=== PATIENT | male | born 1935 | race American Indian/Alaskan Native ===

== ENCOUNTER 2016-11-25 10:51 | Inpatient (IN) | payer MEDICARE, OTHER ==
[2016-11-25 11:02] VITALS: BMI 20.6
[2016-11-25] MEDS ORDERED: Albuterol 0.5% Inhal Sol (2.5 mg/0.5 ml) UD IH STA (11:35)
[2016-11-25] MEDS ORDERED: Ipratropium 0.02% Inhal Soln (0.5 mg/2.5 ml) UD IH STA (11:35)
[2016-11-25 12:24] LABS: ADD MANUAL DIFF? NO
[2016-11-25 12:26] LABS: VENOUS BLOOD GAS BASE EXCESS 9.2 mmol/L (0.0-2.0); VENOUS BLOOD PH 7.38 (7.32-7.43)
--- NOTE | 2016-11-25 12:31 | RAD ---
HISTORY: LE edema COMPARISON: 10/18/2015 FINDINGS: LUNGS: The horizontal platelike atelectasis/scarring or fissural fluid is similar in appearance. No interval consolidation. Study is rotated towards the right PLEURA: No significant pleural effusion identified, no pneumothorax apparent. CARDIOVASCULAR: Mild cardiomegaly OSSEOUS STRUCTURES: No significant abnormalities. VISUALIZED UPPER ABDOMEN: Normal. OTHER FINDINGS: None. IMPRESSION: No interval pathology noted.
[2016-11-25 12:34] LABS: BASO # 0.01 K/mm3 (0.0-2.0); BASO % 0.2 % (0.0-3.0); EOS % 0.7 % (1.5-5.0); GRAN # 3.89 (1.4-6.5); GRAN % 65.9 % (50.0-68.0); HEMATOCRIT 40.8 % (42.0-52.0); LYMPH # 1.2 (1.2-3.4); LYMPH % 19.8 % (22.0-35.0); MEAN CELL VOLUME 97.4 fL (80.0-105.0); MEAN CORPUSCULAR HGB CONC 32.8 g/dl (31.0-37.0); MONO # 0.8 (0.1-0.6); MONO % 13.4 % (1.0-6.0); PLATELET COUNT 114 10^3/uL (120.0-450.0); RED CELL DISTRIBUTION WIDTH 14.7 % (11.5-14.5); WHITE BLOOD COUNT 5.9 10^3/ul (4.5-11.0)
[2016-11-25 12:38] LABS: ALKALINE PHOSPHATASE 83 U/L (38-133); ALT/SGPT 36 U/L (7-56); AST/SGOT 30 U/L (15-59); BILIRUBIN,TOTAL 2.3 mg/dL (0.2-1.3); BLOOD UREA NITROGEN 18 mg/dL (7-21); CALCIUM 10.1 mg/dL (8.4-10.5); CARBON DIOXIDE 36 mmol/L (21-33); CHLORIDE 97 mmol/L (98-107); GFR AFRICAN-AMERICAN > 60; GLUCOSE,RANDOM 113 mg/dL (70-110); INR 1.05 (0.93-1.08); PARTIAL THROMBOPLASTIN TIME 28.7 Seconds (23.7-30.8); POTASSIUM 3.3 mmol/L (3.6-5.0); SODIUM 140 mmol/L (132-148); TOTAL PROTEIN 6.9 g/dL (5.8-8.3)
--- NOTE | 2016-11-25 12:42 | CARD ---
APPROVED REPORT EKG Measurement Heart [id number] <Conclusion> Sinus rhythm with frequent premature ventricular complexes in a pattern of bigeminy Nonspecific ST and T wave abnormality Abnormal ECG
[2016-11-25 12:49] LABS: TROPONIN I < 0.01 ng/mL
[2016-11-25 12:55] LABS: PH,URINE 6.5 (4.7-8.0); URINE BILIRUBIN SMALL (NEGATIVE); URINE BLOOD NEGATIVE (NEGATIVE); URINE GLUCOSE (UA) NEGATIVE (NEGATIVE); URINE KETONE NEGATIVE (NEGATIVE); URINE LEUKOCYTE ESTERASE NEGATIVE Leu/uL (NEGATIVE); URINE PROTEIN TRACE mg/dL (<30 mg/dL); URINE UROBILINOGEN >=8.0 E.U./dL (<1 E.U./dL)
[2016-11-25 12:56] LABS: URINE APPEARANCE CLEAR (CLEAR); URINE COLOR DARK YELLOW (YELLOW)
[2016-11-25 13:07] LABS: URINE EPITHELIAL CELLS 0 - 2 /hpf (0-5); URINE RBC 0 - 2 /hpf (0-2); URINE WBC 0 - 2 /hpf (0-6)
[2016-11-25 13:08] LABS: URINE BACTERIA TRACE (NEG)
[2016-11-25] MEDS ORDERED: Potassium Chloride 20 mEq/15 ml LIQ UD PO STA (13:11)
[2016-11-25] MEDS ORDERED: Magnesium Citrate Oral SOL (300 ml) PO ONE (13:48)
--- NOTE | 2016-11-25 14:14 | ED PDOC ---
Arrival/HPI - General Chief Complaint: Lower Extremity Problem/Injury Time Seen by Provider: 11/25/16 10:54 Historian: Patient, Family - History of Present Illness Narrative History of Present Illness (Text): 11/25/16 14:46 81 yo M with pmh of DM, COPD, CAD, HTN, CHF, presents c/o feeling weak, groin pain, with b/l LE edema, states that she was recently in [place] visiting his sister and had to visit the ER on 11/22 for similar symptoms, pt has a copy of his d/c instructions on him. On the d/c instructions, pt was dx with edema, and was medicated with lasix, albuterol and atrovent. States that after he was treated in the ER was he d/c and was not admitted, however he states that he still feels weak and still has edema to his legs. Pt does admit that he takes lasix and is not very complaint with taking his medication, states that he takes it "here and there" when he recalls. Otherwise denies fever , chills, CP, SOB, dyspnea, N/V/D, abdominal pain, dysuria, headache, dizziness. Pt has no other complaints at this time. 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) - Renal Hx Renal Disorder: No - Endocrine/Metabolic Hx Endocrine Disorders: Yes Hx Diabetes Mellitus Type 2: Yes - Hematological/Oncological Hx Blood Transfusions: No Hx Blood Transfusion Reaction: No - Integumentary Hx Dermatological Disorder: No - Musculoskeletal/Rheumatological Hx Musculoskeletal Disorders: No - Gastrointestinal Hx Gastrointestinal Disorders: Yes (CONSTIPATION) - Genitourinary/Gynecological Hx Genitourinary Disorders: No - Psychiatric Hx Emotional Abuse: No Hx Physical Abuse: No Hx Substance Use: No - Surgical History Hx Cardiac Catheterization: Yes (2005, 2012) Other/Comment: CARDIAC CATH, WITH 1 STENT - Anesthesia Hx Anesthesia Reactions: No Hx Malignant Hyperthermia: No - Suicidal Assessment Feels Threatened In Home Enviroment: No Family/Social History - Physician Review Nursing Documentation Reviewed: Yes Family/Social History: No Known Family HX Smoking Status: Light Smoker < 10 Cigarettes Daily Hx Alcohol Use: No Hx Substance Use: No Allergies/Home Meds Allergies/Adverse Reactions: Allergies Penicillins Allergy (Verified 11/25/16 11:04) RASH Home Medications: Home Meds Medication Instructions Recorded Confirmed Valsartan [Diovan] 320 mg PO DAILY 02/11/15 11/25/16 Febuxostat [Uloric] 40 mg PO DAILY 10/18/15 11/25/16 Metformin HCl [Metformin] 500 mg PO DAILY 10/18/15 11/25/16 Montelukast [Singulair] 10 mg PO DAILY 10/18/15 11/25/16 Aspirin [Ecotrin] 81 mg PO DAILY 01/01/16 11/25/16 Rosuvastatin Calcium [Crestor] 10 mg PO DAILY 01/01/16 11/25/16 Furosemide [Lasix] 40 mg PO DAILY 11/25/16 11/25/16 Meloxicam [Mobic] 15 mg PO DAILY 11/25/16 11/25/16 Metoprolol Succinate [Toprol XL] 25 mg PO DAILY 11/25/16 11/25/16 Tamsulosin [Flomax] 0.4 mg PO DAILY 11/25/16 11/25/16 Review of Systems - Review of Systems Constitutional: Normal, Fatigue. absent: Weight Change, Fevers Respiratory: Normal, Cough (chronic cough). absent: SOB, Sputum, Wheezing Cardiovascular: Normal. absent: Chest Pain, Palpitations, Edema Gastrointestinal: Normal, Constipation (chronic constipation). absent: Abdominal Pain, Stool Changes, Vomiting, Appetite Changes Genitourinary Male: Normal, Frequency. absent: Dysuria, Hematuria Musculoskeletal: Normal. absent: Arthralgias, Back Pain, Neck Pain Skin: Normal. absent: Rash, Pruritis, Skin Lesions Neurological: Normal. absent: Headache, Dizziness, Focal Weakness Physical Exam Vital Signs Reviewed: Yes Vital Signs Temp Pulse Resp BP Pulse Ox 11/25/16 18:12 81 18 142/101 H 95 11/25/16 16:10 81 18 182/72 H 95 11/25/16 14:27 82 17 142/65 96 11/25/16 13:50 84 18 128/75 96 11/25/16 12:26 153/67 H 11/25/16 12:15 51 L 18 131/79 96 11/25/16 11:01 98.0 F 80 18 132/84 95 Temperature: Afebrile Blood Pressure: Normal Pulse: Regular Respiratory Rate: Normal Appearance: Positive for: Well-Appearing, Comfortable Pain Distress: Other (breathing easy and unlabored) Mental Status: Positive for: Alert and Oriented X 3 - Systems Exam Head: Present: Atraumatic, Normocephalic Mouth: Present: Dry Neck: Present: Normal Range of Motion. No: MIDLINE TENDERNESS Respiratory/Chest: Present: Good Air Exchange, Wheezes (b/l expiratory wheezing) . No: Respiratory Distress, Accessory Muscle Use, Rales, Rhonchi Cardiovascular: Present: Regular Rate and Rhythm, Normal S1, S2. No: Murmurs Abdomen: Present: Normal Bowel Sounds. No: Tenderness, Distention, Peritoneal Signs, Rebound, Guarding, Mass/Organomegaly Back: Present: Normal Inspection. No: CVA Tenderness, Midline Tenderness Upper Extremity: Present: Normal Inspection, Normal ROM, NORMAL PULSES. No: Cyanosis, Edema Lower Extremity: Present: Edema ((+) b/l LE 2+ pitting edema), NORMAL PULSES, Neurovascularly Intact, Capillary Refill < 2 s. No: CALF TENDERNESS, Tenderness , Deformity, Temperature Abnormalties Neurological: Present: GCS=15, CN II-XII Intact, Speech Normal, Motor Func Grossly Intact, Normal Sensory Function Skin: Present: Warm, Dry, Normal Color. No: Rashes Psychiatric: Present: Alert, Oriented x 3, Normal Insight, Normal Concentration Medical Decision Making ED Course and Treatment: 11/25/16 14:52 81 yo M with pmh of DM, COPD, CAD, HTN, CHF, presents c/o feeling weak, groin pain, with b/l LE edema for the past several days. Pt on 11/22/16, was seen and treated in an ER in [place] for edema. Differential diagnosis : to r/o CHF exacerbation vs COPD exacerbation vs DVT Plan: - Labs - IV fluids - Lasix / duoneb / solumedrol - EKG - CXR - Pt placed in ED observation - UA / urine cx - Lab Interpretations Lab Results: 11/25/16 12:15 11/25/16 12:15 Lab Results 11/25/16 12:51: Urine Color Dark yellow, Urine Appearance Clear, Urine pH 6.5, Ur Specific [place] 1.015, Urine Protein Trace H, Urine Glucose (UA) Negative, Urine Ketones Negative, Urine Blood Negative, Urine Nitrate Negative, Urine Bilirubin Small H, Urine Urobilinogen >=8.0, Ur Leukocyte Esterase Negative, Urine RBC 0 - 2, Urine WBC 0 - 2, Ur Epithelial Cells 0 - 2, Urine Bacteria Trace 11/25/16 12:15: Sodium 140, Chloride 97 L, Potassium 3.3 L, Carbon Dioxide 36 H , Anion Gap 10, BUN 18, Creatinine 0.7, Est GFR ( Amer) > 60, Est GFR ( Non-Af Amer) > 60, Random Glucose 113 H, Calcium 10.1, Total Bilirubin 2.3 H, AST 30, ALT 36, Alkaline Phosphatase 83, Lactate Dehydrogenase 500, Total Creatine Kinase 389 H, CK-MB (CK-2) 1.9, CK-MB (CK-2) % Cancelled, Troponin I < 0.01, NT-Pro-B Natriuret Pep 319, Total Protein 6.9, Albumin 3.5, Globulin 3.4, Albumin/Globulin Ratio 1.0 L 11/25/16 12:15: pO2 33, VBG pH 7.38, VBG pCO2 62.0 H, VBG HCO3 36.7 H, VBG Total CO2 38.6 H, VBG O2 Sat (Calc) 67.8 H, VBG Base Excess 9.2 H, VBG Potassium 3.2 L, Sodium 140.0, Chloride 99.0, Glucose 113 H, Lactate 1.5, FiO2 21.0, Venous Blood Potassium 3.2 L 11/25/16 12:15: PT 11.3, INR 1.05, APTT 28.7 11/25/16 12:15: WBC 5.9, RBC 4.19, Hgb 13.4 L, Hct 40.8 L, MCV 97.4, MCH 32.0, MCHC 32.8, RDW 14.7 H, Plt Count 114 L, MPV 11.0, Gran % 65.9, Lymph % (Auto) 19.8 L, Adams % (Auto) 13.4 H, Eos % (Auto) 0.7 L, Baso % (Auto) 0.2, Gran # 3.89 , Lymph # 1.2, Adams # 0.8 H, Eos # 0.0, Baso # 0.01 - RAD Interpretation Radiology Orders: 11/25/16 11:36 CHEST PORTABLE [RAD] Stat 11/25/16 13:09 DUPLEX LOWER EXTRM VEIN BILAT [US] Stat 11/25/16 13:48 ABD 2 VIEWS (FLAT/UP OR DECUB) [RAD] Stat - Medication Orders Current Medication Orders: Albuterol/Ipratropium (Duoneb 3 Mg/0.5 Mg (3 Ml) Ud) 3 ml IH [id number] GUNNER Aspirin (Ecotrin) 81 mg PO DAILY GUNNER Atorvastatin Calcium (Lipitor) 40 mg PO DAILY GUNNER Furosemide (Lasix) 40 mg PO DAILY GUNNER Insulin Human Regular (Humulin R Low) 0 units SC ACHS GUNNER PRN Reason: Protocol Metformin HCl (Glucophage) 500 mg PO DAILY GUNNER Methylprednisolone (Solu-Medrol) 40 mg IVP Q12 GUNNER Metoprolol Succinate (Toprol Xl) 25 mg PO DAILY GUNNER Montelukast Sodium (Singulair) 10 mg PO DAILY GUNNER (Febuxostat [Uloric] (40 Mg)Home Med) 40 mg PO DAILY GUNNER Tamsulosin HCl (Flomax) 0.4 mg PO DAILY GUNNER Valsartan (Diovan) 320 mg PO DAILY GUNNER Discontinued Medications Albuterol Sulfate (Albuterol 0.5% Inhal [place] (2.5 Mg/0.5 Ml) Ud) 2.5 mg IH STAT STA Stop: 11/25/16 11:36 Last Admin: 11/25/16 12:00 Dose: 2.5 mg Enoxaparin Sodium (Lovenox) 70 mg SC STAT STA PRN Reason: Protocol Stop: 11/25/16 15:59 Last Admin: 11/25/16 16:06 Dose: 70 mg Furosemide (Lasix) 40 mg IVP STAT STA Stop: 11/25/16 11:36 Last Admin: 11/25/16 12:26 Dose: 40 mg Ipratropium [place] (Atrovent) 0.5 mg IH STAT STA Stop: 11/25/16 11:36 Last Admin: 11/25/16 12:26 Dose: 0.5 mg Magnesium Citrate (Citrate Of Mag) 300 ml PO ONCE ONE Stop: 11/25/16 13:49 Last Admin: 11/25/16 14:29 Dose: 300 ml Methylprednisolone (Solu-Medrol) 125 mg IVP STAT STA Stop: 11/25/16 11:36 Last Admin: 11/25/16 12:29 Dose: 125 mg Potassium Chloride (Potassium Chloride Oral Soln) 40 meq PO STAT STA Stop: 11/25/16 13:12 Last Admin: 11/25/16 13:36 Dose: 40 meq ED OBSERVATION Date of observation admission: 11/25/16 Time of observation admission: 11:40 - Observation admission statement Patient is being placed in observation because:: Due to pt's symptoms, will need to observe to response to treatment. - Goals of Observation Goals of observation are:: To monitor signs and symptoms. - Progress Note Progress Note: 11/25/16 14:00 CXR: NAD, as read by SHANT EKG: SR at 71 bpm with frequent PVCs, no acute ST changes, as read by SHANT Labs reviewed, Plt 114, K 3.3, Trop (-), BNP wnl. CXR shows no acute findings. EKG is SR with no acute ST changes. On re-evaluation and further questioning, pt states that he does not have actual groin pain, testicular pain or scrotal swelling, rather he feels lower abdominal discomfort due to constipation and further adds that he has not had a bowel movement in the past 3 days, normally is always constipated, has a bowel movement every other day and needs to take Mg citrate to move his bowels, which he did not take yet since his symptoms started. On exam, lungs clear with no wheezing, no rales or rhonchi, cardiac RRR , abdomen still soft with no tenderness, no distention, no guarding or rebound. exam: no edema, no tenderness, no rash or lesions. Rectal exam : brown stool , with no stool impaction, guaiac (-). EMT Robles was present during the entire exam. LE : (+) 2+ pitting edema, distal pulses 2+. AXR, US doppler b/l LE ordered. Pt medicated with Mg citrate PO and KCL PO. 11/25/16 16:00 AXR: FOS, NSBGP, (-) air fluid levels, as read by SHANT. US doppler b/l LE : (+) DVT in the popliteal and tibial vein, as per US tech. US results d/w the pt and family. Yenfredx SC ordered. Pt offered inpt admission which he agrees with. Call placed to med special education math teacher Dr. Millard and case discussed, she agrees with plan to admit. - PA / MANAGER STRATEGIC [employer]OURCING / Resident Statement MD/DO has reviewed & agrees with the documentation as recorded. Disposition/Present on Arrival - Present on Arrival Any Indicators Present on Arrival: No History of DVT/PE: Yes History of Uncontrolled Diabetes: Yes Urinary Catheter: No History of Decub. Ulcer: No History Surgical Site Infection Following: None - Disposition Have Diagnosis and Disposition been Completed?: Yes Diagnosis: COPD (chronic obstructive pulmonary disease), Leg edema, DVT (deep venous thrombosis) Disposition: HOSPITALIZED Disposition Time: 11:40 (pt placed in ED observation) Patient Plan: Admission Patient Problems: Current Active Problems Problem Status Onset COPD (chronic obstructive pulmonary disease) Acute DVT (deep venous thrombosis) Acute Leg edema Acute Condition: STABLE
[2016-11-25] MEDS ORDERED: Enoxaparin 80 mg Syringe SC STA (15:58)
--- NOTE | 2016-11-25 16:17 | US ---
HISTORY: Leg pain and swelling. Evaluate for DVT PHYSICIAN(S): Tyron Mcmullen MD. TECHNIQUE: Duplex sonography and color-flow Doppler with graded compression were used to evaluate the deep venous systems of both lower extremities. FINDINGS: There is acute hypoechoic occlusive thrombus in the right popliteal and visualized tibial veins. The right femoral vein and right common femoral vein are patent and compressible. There is no sonographic evidence for deep venous thrombosis the visualized segments of left lower extremity. The exam is limited by edema. IMPRESSION: Acute occlusive thrombus in the right popliteal and visualized tibial veins.
[2016-11-25] MEDS ORDERED: Pneumococcal 23-Valent Vaccine IM ONE (20:10)
[2016-11-25] MEDS: Albuterol-Ipratrop 3 mg / 0.5 (3 ml) UD IH SCH (20:20)
[2016-11-25] MEDS: MethylPREDNISolone 40 mg Vial IVP SCH (21:42)
[2016-11-25] MEDS: Insulin Reg-LOW-Coverage SC SCH (21:51)
--- NOTE | 2016-11-25 23:28 | CP.PCM.HP ---
History of Present Illness - History of Present Illness History of Present Illness: Narrative History of Present Illness 11/25/16 81 yo M with pmh of DM, COPD, CAD, HTN, CHF, presents c/o feeling weak, groin pain, with b/l LE edema, states that she was recently in [place] visiting his sister and had to visit the ER on 11/22 for similar symptoms, pt has a copy of his d/c instructions on him. On the d/c instructions, pt was dx with edema, and was medicated with lasix, albuterol and atrovent. States that after he was treated in the ER was he d/c and was not admitted, however he states that he still feels weak and still has edema to his legs. Pt does admit that he takes lasix and is not very complaint with taking his medication, states that he takes it "here and there" when he recalls. Otherwise denies fever , chills, CP, SOB, dyspnea, N/V/D, abdominal pain, dysuria, headache, dizziness. Pt has no other complaints at this time. Present on Admission - Present on Admission Any Indicators Present on Admission: No Review of Systems - Constitutional Constitutional: absent: As Per HPI - EENT Eyes: As Per HPI Ears: absent: As Per HPI Nose/Mouth/Throat: absent: As Per HPI - Cardiovascular Cardiovascular: absent: As Per HPI - Respiratory Respiratory: absent: As Per HPI - Musculoskeletal Musculoskeletal: As Per HPI - Integumentary Integumentary: As Per HPI - Neurological Neurological: absent: As Per HPI Past Patient History - Infectious Disease Hx of Infectious Diseases: None - Tetanus Immunizations Tetanus Immunization: Unknown - Past Medical History & Family History Past Medical History?: Yes - Past Social History Smoking Status: Light Smoker < 10 Cigarettes Daily - CARDIAC Hx Pacemaker: No - PULMONARY Hx Respiratory Disorders: Yes (SMOKES 2 CIGARETTES A DAY) Hx Asthma: Yes Hx Chronic Obstructive Pulmonary Disease (COPD): Yes Hx Emphysema: Yes Hx Pneumonia: Yes - NEUROLOGICAL Hx Paralysis: No - HEENT Hx HEENT Problems: Yes 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) - RENAL Hx Chronic Kidney Disease: No - ENDOCRINE/METABOLIC Hx Endocrine Disorders: Yes Hx Diabetes Mellitus Type 2: Yes - HEMATOLOGICAL/ONCOLOGICAL Hx Blood Transfusions: No Hx Blood Transfusion Reaction: No - INTEGUMENTARY Hx Dermatological Problems: No - MUSCULOSKELETAL/RHEUMATOLOGICAL Hx Musculoskeletal Disorders: No - GASTROINTESTINAL Hx Gastrointestinal Disorders: Yes (CONSTIPATION) - GENITOURINARY/GYNECOLOGICAL Hx Genitourinary Disorders: No - PSYCHIATRIC Hx Emotional Abuse: No Hx Physical Abuse: No Hx Substance Use: No - SURGICAL HISTORY Hx Cardiac Catheterization: Yes (2005, 2012) Other/Comment: CARDIAC CATH, WITH 1 STENT - ANESTHESIA Hx Anesthesia Reactions: No Hx Malignant Hyperthermia: No Meds Allergies/Adverse Reactions: Allergies Allergy/AdvReac Type Severity Reaction Status Date / Time Penicillins Allergy RASH Verified 11/25/16 11:04 Physical Exam - Constitutional Appears: Well - Head Exam Head Exam: ATRAUMATIC, NORMAL INSPECTION, NORMOCEPHALIC - Eye Exam Eye Exam: EOMI, Normal appearance, PERRL Pupil Exam: NORMAL ACCOMODATION, PERRL - ENT Exam ENT Exam: Mucous Membranes Moist, Normal Exam - Neck Exam Neck exam: Positive for: Normal Inspection - Respiratory Exam Respiratory Exam: Clear to Auscultation Bilateral, NORMAL BREATHING PATTERN - Cardiovascular Exam Cardiovascular Exam: REGULAR RHYTHM - GI/Abdominal Exam GI & Abdominal Exam: Normal Bowel Sounds, Soft. absent: Tenderness - Rectal Exam Rectal Exam: NORMAL INSPECTION - Exam Exam: Circumcision, NORMAL INSPECTION External exam: NORMAL EXTERNAL EXAM Speculum exam: NORMAL SPECULUM EXAM Bimanual exam: NORMAL BIMANUAL EXAM - Extremities Exam Extremities exam: Positive for: normal inspection - Back Exam Back exam: NORMAL INSPECTION - Neurological Exam Neurological exam: Alert, CN II-XII Intact, Normal Gait, Oriented x3, Reflexes Normal - Psychiatric Exam Psychiatric exam: Normal Affect, Normal Mood - Skin Skin Exam: Dry, Intact, Normal Color, Warm Results - Vital Signs Recent Vital Signs: Last Vital Signs Temp 98 F 11/25/16 19:50 Pulse 81 11/25/16 20:20 Resp 18 11/25/16 19:50 BP 142/101 H 11/25/16 19:50 Pulse Ox 95 11/25/16 18:12 - Labs Result Diagrams: 11/25/16 12:15 11/25/16 12:15 Labs: Laboratory Results - last 24 hr 11/25/16 21:28 POC Glucose (mg/dL) 295 H Assessment & Plan - Assessment and Plan (Free Text) Assessment: 81 yo M with pmh of DM, COPD, CAD, HTN, CHF, presents c/o feeling weak, groin pain, with b/l LE edema, states that she was recently in [place] visiting his sister and had to visit the ER on 11/22 for similar symptoms, pt has a copy of his d/c instructions on him. On the d/c instructions, pt was dx with edema, and was medicated with lasix, albuterol and atrovent. States that after he was treated in the ER was he d/c and was not admitted, however he states that he still feels weak and still has edema to his legs. Pt does admit that he takes lasix and is not very complaint with taking his medication, states that he takes it "here and there" when he recalls. Otherwise denies fever , chills, CP, SOB, dyspnea, N/V/D, abdominal pain, dysuria, headache, dizziness. 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
[2016-11-26] MEDS: Albuterol-Ipratrop 3 mg / 0.5 (3 ml) UD IH SCH ×4 (02:25→20:35)
[2016-11-26 07:16] LABS: HEMATOCRIT 44.9 % (42.0-52.0); MEAN CELL VOLUME 95.7 fL (80.0-105.0); MEAN CORPUSCULAR HGB CONC 33.4 g/dl (31.0-37.0); MEAN PLATELET VOLUME 11.4 fl (7.0-11.0); RED CELL DISTRIBUTION WIDTH 14.2 % (11.5-14.5); WHITE BLOOD COUNT 6.1 10^3/ul (4.5-11.0)
[2016-11-26 07:37] LABS: ALKALINE PHOSPHATASE 93 U/L (38-133); ALT/SGPT 37 U/L (7-56); AST/SGOT 32 U/L (15-59); BILIRUBIN,TOTAL 0.9 mg/dL (0.2-1.3); BLOOD UREA NITROGEN 20 mg/dL (7-21); CALCIUM 10.3 mg/dL (8.4-10.5); CARBON DIOXIDE 31 mmol/L (21-33); CHLORIDE 98 mmol/L (98-107); CHOLESTEROL 156 mg/dL (130-200); GFR AFRICAN-AMERICAN > 60; GLUCOSE,RANDOM 184 mg/dL (70-110); IRON 36 ug/dL (45-180); POTASSIUM 3.5 mmol/L (3.6-5.0); SODIUM 140 mmol/L (132-148); TOTAL PROTEIN 7.3 g/dL (5.8-8.3)
[2016-11-26] MEDS: Insulin Reg-LOW-Coverage SC SCH ×3 (08:19→21:44)
--- NOTE | 2016-11-26 09:43 | RAD ---
HISTORY: constipation COMPARISON: No prior. FINDINGS: BOWEL: Gas is seen distending a few central large and small bowel loops without significant pattern that would indicate bowel obstruction this time. No air-fluid level formation is appreciated there is no fracture gas identified. Vascular calcification about the inferior abdomen and pelvis. . BONES: Normal. OTHER FINDINGS: None. IMPRESSION: No definite bowel obstruction pattern appreciate this time. Vascular calcifications are seen in the pelvis. Consider persist or worsen follow-up CT data may be considered. .
[2016-11-26] MEDS ORDERED: Non Formulary Medication (Rosuvastatin Calcium [Crestor] 10 MG) PO SCH (10:00)
[2016-11-26] MEDS: Metoprolol Succinate 25 mg XL Tab PO SCH (11:17)
[2016-11-26] MEDS: MethylPREDNISolone 40 mg Vial IVP SCH ×2 (11:19→21:46)
[2016-11-26] MEDS: Heparin 25,000units in D5W 25,000 UNITS/250 ML BAG IV PRN (11:29)
[2016-11-26 13:51] LABS: FOLATE 7.4 ng/mL
[2016-11-26 17:54] LABS: INR 1.06 (0.93-1.08); PARTIAL THROMBOPLASTIN TIME 41.7 Seconds (23.7-30.8)
[2016-11-27] MEDS: Albuterol-Ipratrop 3 mg / 0.5 (3 ml) UD IH SCH ×4 (01:33→20:00)
--- NOTE | 2016-11-27 05:53 | PN ---
DATE: 11/26/2016 SUBJECTIVE: The patient is a 81-year-old male, sitting on the chair, very short of breath even if he has used the bathroom. Cough is better. No nausea or vomiting, diarrhea, hematuria or hematochezia. No headache or dizziness. PHYSICAL EXAMINATION: VITAL SIGNS: Temperature is 98.0, pulse 71, blood pressure 154/62, respiratory rate 18. HEENT: Head is normocephalic and atraumatic. Eyes PERRLA. Extraocular movements are intact. Conjunctiva clear. No sputum. Mucous membranes are moist. NECK: Supple. No carotid bruits or thyromegaly. CHEST: Bilaterally symmetrical. HEART: S1 and S2 positive. LUNGS: Clear to auscultation. ABDOMEN: Soft. Bowel sounds present. No organomegaly. EXTREMITIES: No edema, no cyanosis. NEUROLOGICAL: The patient is awake, alert. Moving all 4 extremities. No focal deficits. MEDICATIONS: Diovan, doxycycline, DuoNeb, Ecotrin, Flomax, Glucophage, heparin drip protocol. LABORATORY DATA: White blood cells is 6.4, hemoglobin is 15.0, hematocrit 44.9, platelets 138,000. Glucose is 237, 212, 205, 172. Urine has protein and bilirubin. ASSESSMENT AND PLAN: Mr. Carlitos Bolivar is a 81-year-old male with history of anemia, uncontrolled diabetes mellitus, history of hypokalemia, iron deficiency, abnormal liver function test, congestive heart failure. Went for lung scan, results are pending. Ultrasound of the extremity done. It showed acute occlusive thrombus in the right popliteal and vascularized tibial veins. The patient is started on heparin drip per protocol. 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 Pulmonary consult called by Dr. Porter. Service Architect is on the case. Started on doxycycline by Dr. Porter, starting Flomax for BPH, started Solu-Medrol. Need echocardiography as per Dr. Porter. We will follow up. Bessie Sanders MD CLAUS
--- NOTE | 2016-11-27 06:07 | CP.PCM.PN ---
Subjective - Date & Time of Evaluation Date of Evaluation: 11/27/16 Time of Evaluation: 05:00 - Subjective Subjective: As discussed with staff when patient woke up this am was agitated, threatening staff, asking them to go away, denying vs/spo2 check o2 via nc. Patient was sitting on the chair, not in cardiorespiratory distress, mentions he knows he is in the hospital but but does not believe anyone around here, patient again refuse above. Since patient is not in distress will be observed as may settle down from suspected sun downing, patient's nurse had tried to reach family no response yet , will be observed 1:1 from far still keep close eye and avoid further agitation. The adjacent patient had been move to different room. Objective - Vital Signs/Intake and Output Vital Signs (last 24 hours): Temp Pulse Resp BP Pulse Ox 98.0 F 71 18 164/62 H 100 11/26/16 16:30 11/26/16 16:30 11/26/16 16:30 11/26/16 16:30 11/26/16 16:30 Intake and Output: 11/26/16 11/27/16 18:59 06:59 Intake Total 560 620 Balance 560 620 - Medications Medications: Current Medications Albuterol/Ipratropium (Duoneb 3 Mg/0.5 Mg (3 Ml) Ud) 3 ml IH [id number] [facility] Last Admin: 11/27/16 01:33 Dose: 3 ml Aspirin (Ecotrin) 81 mg PO DAILY [facility] Last Admin: 11/26/16 11:19 Dose: 81 mg Atorvastatin Calcium (Lipitor) 40 mg PO DAILY [facility] Last Admin: 11/26/16 11:17 Dose: 40 mg Doxycycline Hyclate (Doryx) 100 mg PO Q12 [facility] PRN Reason: Protocol Last Admin: 11/27/16 00:14 Dose: 100 mg Furosemide (Lasix) 40 mg PO DAILY [facility] Last Admin: 11/26/16 11:18 Dose: 40 mg Heparin Sodium/Dextrose (Heparin 25,000 Units/250ml In D5w) 25,000 units in 250 mls @ 13.472 mls/hr IV .[id number] PRN; Protocol; 18 UNITS/KG/HR PRN Reason: ADJUST RATE PER PROTOCOL Last Titration: 11/26/16 19:24 Dose: 20.71 units/kg/hr, 15.5 mls/hr Insulin Human Regular (Humulin R Low) 0 units SC ACHS [facility] PRN Reason: Protocol Last Admin: 11/26/16 21:44 Dose: Not Given Metformin HCl (Glucophage) 500 mg PO DAILY [facility] Last Admin: 11/26/16 11:18 Dose: 500 mg Methylprednisolone (Solu-Medrol) 40 mg IVP Q12 [facility] Last Admin: 11/26/16 21:46 Dose: 40 mg Metoprolol Succinate (Toprol Xl) 25 mg PO DAILY [facility] Last Admin: 11/26/16 11:17 Dose: 25 mg Montelukast Sodium (Singulair) 10 mg PO DAILY [facility] Last Admin: 11/26/16 11:19 Dose: 10 mg (Febuxostat [Uloric] (40 Mg)Home Med) 40 mg PO DAILY [facility] Last Admin: 11/26/16 11:21 Dose: Not Given Tamsulosin HCl (Flomax) 0.4 mg PO DAILY [facility] Last Admin: 11/26/16 11:19 Dose: 0.4 mg Valsartan (Diovan) 320 mg PO DAILY [facility] Last Admin: 11/26/16 11:26 Dose: 320 mg - Labs Labs: 11/26/16 06:40 11/26/16 06:40 PT 11.5 Seconds (9.9-11.8) 11/26/16 17:39 INR 1.06 (0.93-1.08) 11/26/16 17:39 APTT 55.5 Seconds (23.7-30.8) H 11/27/16 01:20
--- NOTE | 2016-11-27 06:51 | CON ---
PULMONARY CONSULTATION DATE: 11/26/2016 REFERRING PHYSICIAN: Dr. Sanders. REASON FOR CONSULTATION: Cough and shortness of breath. HISTORY OF PRESENT ILLNESS: This is a 81-year-old gentleman with past medical history significant for chronic obstructive lung disease, coronary artery disease, hypertension, heart failure, also have a diabetes comes into emergency room with not feeling well, have bilateral lower extremity edema, pain for the right lower extremity. Recently, traveled [place] visiting sister. He was seen in ER few days ago with the similar symptom and was treated with the Lasix and sent home. According to the patient, he is retired and just sits alone on the recliner and watch TV. No hemoptysis. Admit to have snoring, daytime sleepy and tired. PAST MEDICAL HISTORY: Chronic obstructive lung disease, coronary artery disease, hypertension, heart failure, and diabetes. SOCIAL HISTORY: He is a smoker and denies any alcohol use. ALLERGIES: ALLERGIC TO PENICILLIN. FAMILY HISTORY: No significant cardiopulmonary disease reported. MEDICATIONS: At presently, he is on; 1. Uloric 40 mg daily. 2. Diovan 320 mg daily. 3. DuoNeb q. 6 hours. 4. Ecotrin 81 mg daily. 5. Flomax 0.4 mg daily. 6. Metformin 500 mg daily. 7. Heparin IV with protocol. 8. Insulin coverage. 9. Lasix 40 mg daily. 10. Lipitor 40 mg. 11. Singulair 10 mg daily. 12. Solu-Medrol 40 mg q. 12 hours. 13. Toprol-XL 25 mg daily. REVIEW OF SYSTEMS: No headache and no rhinitis. Has cough, shortness of breath,sputum production. No chest pain. No nausea. No vomiting. No diarrhea. No bilateral leg swelling, right lower more than the left. PHYSICAL EXAMINATION: GENERAL: Sitting in the reclining chair. VITAL SIGNS: Temperature is 98, heart rate 71, respiratory rate is 18, blood pressure 164/62, and pulse ox 94% on room air. HEENT: Moist mucous membrane. Crowded airway. Mallampati score is IV. NECK: Supple. No JVD. LUNGS: Few crackles at bases. Scattered rhonchi and wheezing. HEART: S1 and S2. ABDOMEN: Soft, nontender. No organomegaly. EXTREMITIES: Has edema, right more than left. NEUROLOGIC: Awake and alert. Follows simple commands. LABORATORY DATA: Shows hemoglobin 15.0, hematocrit 44.9, WBC 6.1 and platelet count is 138. INR 1.06, PTT 42. ABG done shows pH 7.38, pCO2 is 62, O2 of 33, iron is 36. Sodium 140, potassium 3.5, chloride 98, bicarbonate 31, BUN 20, creatinine 0.7, and glucose is 184. AST 32, ALT 37, alk phos is 93. ProBNP 2040. Cholesterol 156. TSH 0.55. Urine culture is no growth. Has a venous Doppler of lower extremities done which shows acute occlusive thrombus in the right popliteal and visualize tibial vein. Chest x-ray done on admission shows right atelectasis, scarring, has a fluid. V/Q scan is done. Report is pending. IMPRESSION AND PLAN: Deep venous thrombosis, rule out pulmonary embolism, chronic obstructive lung disease, heart failure, coronary artery disease, hypertension, and diabetes. Agree with Dr. Sanders with the present management. Also need to rule out sleep apnea syndrome. The patient urged to stop smoking. We will add doxycycline 100 mg twice a day. Continue IV and inhaled bronchodilators. We will recommended attended sleep study, PFT as outpatient. Follow up labs in the morning. We will get echocardiogram. Assess LV function. Thank you and we will follow with you. Krista Porter MD
[2016-11-27] MEDS: Heparin 25,000units in D5W 25,000 UNITS/250 ML BAG IV PRN ×2 (08:13→15:54)
[2016-11-27] MEDS: Insulin Reg-LOW-Coverage SC SCH ×5 (08:13→21:08)
[2016-11-27 09:10] LABS: ADD MANUAL DIFF? NO
[2016-11-27 09:14] LABS: GRAN # 7.08 (1.4-6.5); GRAN % 87.9 % (50.0-68.0); HEMATOCRIT 40.3 % (42.0-52.0); LYMPH # 0.5 (1.2-3.4); LYMPH % 6.6 % (22.0-35.0); MEAN CELL VOLUME 94.8 fL (80.0-105.0); MEAN CORPUSCULAR HEMOGLOBIN 32.5 pg (25.0-35.0); MEAN CORPUSCULAR HGB CONC 34.2 g/dl (31.0-37.0); MONO # 0.4 (0.1-0.6); MONO % 5.5 % (1.0-6.0); PLATELET COUNT 146 10^3/uL (120.0-450.0); RED CELL DISTRIBUTION WIDTH 13.9 % (11.5-14.5)
[2016-11-27 09:16] LABS: WHITE BLOOD COUNT 8.1 10^3/ul (4.5-11.0)
[2016-11-27 09:34] LABS: TROPONIN I 0.05 ng/mL
[2016-11-27] MEDS: Metoprolol Succinate 25 mg XL Tab PO SCH (09:47)
[2016-11-27] MEDS: MethylPREDNISolone 40 mg Vial IVP SCH ×2 (09:54→21:08)
[2016-11-27 11:21] LABS: ALB/GLOB RATIO 1.1 (1.1-1.8); ALKALINE PHOSPHATASE 91 U/L (38-133); ALT/SGPT 35 U/L (7-56); AST/SGOT 45 U/L (15-59); BILIRUBIN,TOTAL 0.6 mg/dL (0.2-1.3); BLOOD UREA NITROGEN 22 mg/dL (7-21); CALCIUM 10.3 mg/dL (8.4-10.5); CARBON DIOXIDE 28 mmol/L (21-33); CHLORIDE 97 mmol/L (98-107); GFR AFRICAN-AMERICAN > 60; GLUCOSE,RANDOM 199 mg/dL (70-110); MAGNESIUM 1.8 mg/dL (1.7-2.2); POTASSIUM 3.6 mmol/L (3.6-5.0); SODIUM 135 mmol/L (132-148); TOTAL PROTEIN 6.6 g/dL (5.8-8.3)
--- NOTE | 2016-11-27 11:35 | CON ---
DATE: 11/27/2016 INDICATIONS: Edema, weakness, history of coronary artery disease, and coronary stent. HISTORY OF PRESENT ILLNESS: This is a 81-year-old man admitted on the with edema and weakness, which has been present for several weeks. He was visiting [place] and went to an emergency room there. When he returned to [place], he came to [facility] and was admitted with edema extending from the groin, this was associated with weakness, groin pain, and dyspnea, but no chest pain, orthopnea, PND, syncope, palpitations, dizziness, vertigo, fever, chills, cough, sputum production, hemoptysis, abdominal pain, nausea, vomiting, diarrhea, constipation, or melena. During this last night, he experienced confusion episode. PAST MEDICAL HISTORY: Notable for coronary artery disease with a stent of the right coronary artery in 12/2015. He has diabetes, hypertension, and COPD. He continues to smoke. There is a history of congestive heart failure, GERD, gout, hyperlipidemia, and echocardiogram in 2014 demonstrated [id number] mitral regurgitation with mild tricuspid regurgitation and pulmonary hypertension. He is blind in his left eye. There is no history of stroke or TIA. MEDICATIONS AT THE TIME OF ADMISSION: Included Crestor, Diovan, aspirin, Flomax, metformin, Mobic, Singulair, metoprolol, and Uloric. ALLERGIES: THERE IS AN ALLERGY TO PENICILLIN NOTED. THERE MAY BE MEDICATION NONCOMPLIANCE. I DO NOT SEE THAT HE IS ON PLAVIX FOR THE STENT IMPLANTED IN 12/2015. SOCIAL HISTORY: He lives at home. He continues to smoke intermittently. He does not drink alcohol significantly. FAMILY HISTORY: Notable for heart disease. REVIEW OF SYSTEMS: A 10-point review of systems otherwise unremarkable except as noted above. PHYSICAL EXAMINATION: GENERAL: He is a well-developed man, sitting on his bed in the presence of a sitter. VITAL SIGNS: Unremarkable. His pulse is 71, blood pressure is 140/83, respirations are 18, and O2 saturation is 100% on room air. HEENT: Reveals no neck vein distention, thyromegaly, or carotid bruits. Mucous membranes moist. Conjunctivae pink. NECK: Supple. LUNGS: Lung preston scattered rhonchi, soft expiratory wheezing. HEART: Revealed normal first and second heart sounds. There is a soft systolic murmur along the left sternal border and at the apex. ABDOMEN: Benign. No mass, organomegaly, tenderness, rebound, guarding, CVA tenderness, or palpable abdominal aortic aneurysm. EXTREMITIES: Revealed edema to the thighs. NEUROLOGIC: He was awake, alert, and oriented. PSYCHIATRIC: Normal as to mood and affect. Currently, he was confused during the night. SKIN: Warm and dry. No rash or cellulitis. LABORATORY AND IMAGING: EKG demonstrates regular sinus rhythm with bigeminal PVCs, nonspecific ST-wave changes. A portable chest x ray reveals no interval pathology noted. Extremity ultrasound reveals acute occlusive thrombus in the right popliteal and visualized tibial veins. Abdominal x-ray reveals no definite bowel obstruction pattern, vascular calcifications are noted. A lung scan was done and is pending. CBC is unremarkable. PT, INR, and PTT unremarkable and consistent with heparin therapy subtherapeutic. Blood gas noted. Electrolytes unremarkable except for potassium 3.3, repeat 3.5, and creatinine 0.7. Blood sugar is noted. LFTs unremarkable. CK 389. Troponin less than 0.01. BNP 319, total cholesterol 156, LDL 60, and triglycerides 93. TSH is normal. Urinalysis is noted. IMPRESSION AND PLAN: Carlitos Bolivar is a 81-year-old man admitted with bilateral edema, weakness, and found to have deep venous thrombosis involving the right popliteal and tibial veins with history of coronary artery disease and coronary stenting. He has had confusion. He has been weak. No definite chest pain. At this time, I agree with plans. He is getting heparin. A V/Q scan result is pending. I would add Plavix. He has a one-to-one sitter. He will have neurologic signs recorded. We will monitor I's and O's. Check stool for occult blood. Monitor labs, reviews old records. I would switch his oral Lasix to IV, monitor I's and O's and daily weights. He can be out of bed to chair. He has been cultured. He is getting antibiotics. He is also getting metoprolol, Lipitor, metformin, Flomax, aspirin, albuterol, doxycycline, and Diovan. I will order an echocardiogram. I will follow along with you. I will make additional recommendations based on his clinical course. Carter Silverman MD [facility] # [id number]
--- NOTE | 2016-11-27 11:40 | NM ---
COMPARISON: Portable chest 11/25/2016 TECHNIQUE: 32.3 mCi technetium 99-m DTPA aerosol 3.0 mCI technetium 99-m MAA administered intravenously. FINDINGS: VENTILATION COMPONENT: Normal. PERFUSION COMPONENT: Normal. IMPRESSION: Lowprobability ventilation perfusion scan for pulmonary embolism.
--- NOTE | 2016-11-27 16:02 | CARD ---
APPROVED REPORT EKG Measurement Heart [id number] <Conclusion> Sinus rhythm with frequent PVCs and Echo beats Minimal voltage criteria for LVH, may be normal variant Cannot rule out Anterior infarct, age undetermined Abnormal ECG
[2016-11-27] MEDS ORDERED: Alum-Mag Hydrox-Simethicone Susp (30 mL) PO ONE (16:09)
[2016-11-27] MEDS ORDERED: Magnesium Hydroxide Susp 30 ml UD PO ONE (16:10)
--- NOTE | 2016-11-27 16:41 | CARD ---
APPROVED REPORT EKG Measurement Heart [id number] <Conclusion> Sinus rhythm with Frequent PVCs Fusion beats Abnormal ECG
--- NOTE | 2016-11-27 18:47 | CP.PCM.PN ---
Subjective - Date & Time of Evaluation Date of Evaluation: 11/27/16 Time of Evaluation: 18:33 - Subjective Subjective: Pt's RN called me requesting me to read an Ekg that was done earlier today when he was symptomatic with c/o chest pain. He is asymptomatic now.VS are stable. EKG shows NSR with multifocal PVCs.Troponin was done when he had the chest pain.It is reported to be .22 Dr Silverman was called.findings conveyed to him. As per request will order Troponin for 6 AM tomorrow. Objective - Vital Signs/Intake and Output Vital Signs (last 24 hours): Temp Pulse Resp BP Pulse Ox 97.9 F 87 25 H 150/88 92 L 11/27/16 06:50 11/27/16 18:00 11/27/16 16:00 11/27/16 15:01 11/27/16 16:10 Intake and Output: 11/27/16 11/27/16 06:59 18:59 Intake Total 1010 783 Output Total 1950 Balance 1010 -1167 - Medications Medications: Current Medications Albuterol/Ipratropium (Duoneb 3 Mg/0.5 Mg (3 Ml) Ud) 3 ml IH [id number] [facility] Last Admin: 11/27/16 13:02 Dose: 3 ml Aspirin (Ecotrin) 81 mg PO DAILY [facility] Last Admin: 11/27/16 09:44 Dose: 81 mg Atorvastatin Calcium (Lipitor) 40 mg PO DAILY [facility] Last Admin: 11/27/16 09:46 Dose: 40 mg Clopidogrel Bisulfate (Plavix) 75 mg PO DAILY [facility] Last Admin: 11/27/16 09:47 Dose: 75 mg Doxycycline Hyclate (Doryx) 100 mg PO Q12 [facility] PRN Reason: Protocol Last Admin: 11/27/16 09:44 Dose: 100 mg Furosemide (Lasix) 40 mg IVP DAILY [facility] Last Admin: 11/27/16 09:45 Dose: 40 mg Heparin Sodium/Dextrose (Heparin 25,000 Units/250ml In D5w) 25,000 units in 250 mls @ 10.852 mls/hr IV .Q23H3M PRN; Protocol; 14.5 UNITS/KG/HR PRN Reason: ADJUST RATE PER PROTOCOL Last Admin: 11/27/16 15:54 Dose: 19.37 units/kg/hr, 14.5 mls/hr Insulin Human Regular (Humulin R Low) 0 units SC ACHS [facility] PRN Reason: Protocol Last Admin: 11/27/16 17:14 Dose: 1 units Metformin HCl (Glucophage) 500 mg PO DAILY [facility] Last Admin: 11/27/16 09:45 Dose: 500 mg Methylprednisolone (Solu-Medrol) 40 mg IVP Q12 [facility] Last Admin: 11/27/16 09:54 Dose: 40 mg Metoprolol Succinate (Toprol Xl) 25 mg PO DAILY [facility] Last Admin: 11/27/16 09:47 Dose: 25 mg Montelukast Sodium (Singulair) 10 mg PO DAILY [facility] Last Admin: 11/27/16 09:47 Dose: 10 mg (Febuxostat [Uloric] (40 Mg)Home Med) 40 mg PO DAILY [facility] Tamsulosin HCl (Flomax) 0.4 mg PO DAILY [facility] Last Admin: 11/27/16 09:45 Dose: 0.4 mg Valsartan (Diovan) 320 mg PO DAILY [facility] Last Admin: 11/27/16 09:44 Dose: 320 mg - Labs Labs: 11/27/16 07:35 11/27/16 07:35 PT 11.5 Seconds (9.9-11.8) 11/26/16 17:39 INR 1.06 (0.93-1.08) 11/26/16 17:39 APTT 121.0 Seconds (23.7-30.8) H* 11/27/16 14:10
[2016-11-27] MEDS ORDERED: Nitroglycerin 2% Ointment Foilpak UD TOP STA (20:05)
--- NOTE | 2016-11-27 23:37 | PN ---
DATE: 11/27/2016 REFERRING PHYSICIAN: Bessie Sanders MD SUBJECTIVE: He is on telemetry bed, in ICU, sitting at the side of the bed. He has some cough and shortness of breath and epigastric discomfort. No nausea. No vomiting. No diarrhea. Heavy leg swelling, right more than the left. PHYSICAL EXAMINATION: GENERAL: In no acute distress. VITAL SIGNS: Temperature is 98, heart rate is 87, respiratory rate 25, pulse ox is 92% on room air, blood pressure 150/88. HEENT: Moist mucous membrane. Crowded airway. Mallampati score is 4. NECK: Supple. No JVD. LUNGS: Has crackle at the bases. Scattered rhonchi. HEART: S1 and S2. ABDOMEN: Soft and nontender. No organomegaly. EXTREMITIES: He does have edema, right more than the left. Right leg is tender to touch. LABORATORY DATA: Shows hemoglobin 13.8, hematocrit 40.3, WBC 8.1, platelet count is 146. PTT is 121. Sodium 135, potassium 3.6, chloride 97, bicarbonate 28, BUN 22, creatinine 0.7, glucose 199, calcium 10.3, phosphorus 3.0, magnesium 1.8, AST 45, ALT 35, alkaline phosphatase is 91, troponin is 0.22, albumin is 3.4. Urine culture so far, there is no growth. EKG done today, this afternoon shows sinus rhythm with frequent PVCs, fusion beats. Echocardiogram is being done. V/Q scan is negative for PE. MEDICATIONS: He is on Uloric 40 mg daily, Diovan 320 mg daily, doxycycline 100 mg twice a day, DuoNeb q. 6 hours., Ecotrin 81 mg daily, Flomax 0.4 mg daily, metformin 500 mg daily, heparin weight-based protocol, Lasix 40 mg IV daily, Lipitor 40 mg daily, Plavix 75 mg daily, Singulair 10 mg daily, Solu-Medrol 40 mg q. 12 hours, and Toprol-XL 25 mg daily. IMPRESSION AND PLAN: Deep venous thrombosis of lower extremity, chronic obstructive lung disease, component of heart failure, coronary artery disease, hypertension, diabetes, also may have gastroesophageal reflux disease. We will continue IV and inhaled bronchodilator. Continue anticoagulation. We will send stool for guaiac. We will recommend BiPAP 12/8 at 30% oxygen while sleeping at nighttime. Follow up echocardiogram. Thank you, and we will follow with you. Krista Porter MD
--- NOTE | 2016-11-28 00:32 | CP.PCM.PN ---
Subjective - Date & Time of Evaluation Date of Evaluation: 11/28/16 Time of Evaluation: 00:29 - Subjective Subjective: Patient was seen earlier because he had requested something for bowel movement and had chest pain. States that he did not have bowel movement for 3 days.He was given MOM earlier , which did not help him. He also states that he had mild chest pain, precordia with no radiation, all day .Had no other complaints like nausea, vomiting, sweating , palpitations,sob. Medical record was reviewed. Troponin was 0.22 earlier. This 81 year old male was admitted with weakness and swelling of legs. Has PMH of CAD,HTN,CHF,COPD, DM II, Cardiac catheterization with Stent placement , constipation. Objective - Vital Signs/Intake and Output Vital Signs (last 24 hours): Temp Pulse Resp BP Pulse Ox 97.9 F 77 36 H 168/80 H 99 11/27/16 06:50 11/27/16 23:10 11/27/16 23:10 11/27/16 22:58 11/27/16 23:10 Intake and Output: 11/27/16 11/28/16 18:59 06:59 Intake Total 783 Output Total 1950 Balance -1167 - Medications Medications: Current Medications Albuterol/Ipratropium (Duoneb 3 Mg/0.5 Mg (3 Ml) Ud) 3 ml IH [id number] [facility] Last Admin: 11/27/16 20:00 Dose: 3 ml Aspirin (Ecotrin) 81 mg PO DAILY [facility] Last Admin: 11/27/16 09:44 Dose: 81 mg Atorvastatin Calcium (Lipitor) 40 mg PO DAILY [facility] Last Admin: 11/27/16 09:46 Dose: 40 mg Clopidogrel Bisulfate (Plavix) 75 mg PO DAILY [facility] Last Admin: 11/27/16 09:47 Dose: 75 mg Docusate Sodium (Colace) 100 mg PO TID [facility] Doxycycline Hyclate (Doryx) 100 mg PO Q12 [facility] PRN Reason: Protocol Last Admin: 11/27/16 21:09 Dose: 100 mg Furosemide (Lasix) 40 mg IVP DAILY [facility] Last Admin: 11/27/16 09:45 Dose: 40 mg Heparin Sodium/Dextrose (Heparin 25,000 Units/250ml In D5w) 25,000 units in 250 mls @ 10.852 mls/hr IV .Q23H3M PRN; Protocol; 14.5 UNITS/KG/HR PRN Reason: ADJUST RATE PER PROTOCOL Last Admin: 11/27/16 15:54 Dose: 19.37 units/kg/hr, 14.5 mls/hr Insulin Human Regular (Humulin R Low) 0 units SC ACHS [facility] PRN Reason: Protocol Last Admin: 11/27/16 21:08 Dose: Not Given Metformin HCl (Glucophage) 500 mg PO DAILY [facility] Last Admin: 11/27/16 09:45 Dose: 500 mg Methylprednisolone (Solu-Medrol) 40 mg IVP Q12 [facility] Last Admin: 11/27/16 21:08 Dose: 40 mg Metoprolol Succinate (Toprol Xl) 25 mg PO DAILY [facility] Last Admin: 11/27/16 09:47 Dose: 25 mg Montelukast Sodium (Singulair) 10 mg PO DAILY [facility] Last Admin: 11/27/16 09:47 Dose: 10 mg (Febuxostat [Uloric] (40 Mg)Home Med) 40 mg PO DAILY [facility] Tamsulosin HCl (Flomax) 0.4 mg PO DAILY [facility] Last Admin: 11/27/16 09:45 Dose: 0.4 mg Valsartan (Diovan) 320 mg PO DAILY [facility] Last Admin: 11/27/16 09:44 Dose: 320 mg - Labs Labs: 11/27/16 07:35 11/27/16 07:35 PT 11.5 Seconds (9.9-11.8) 11/26/16 17:39 INR 1.06 (0.93-1.08) 11/26/16 17:39 APTT 55.8 Seconds (23.7-30.8) H 11/27/16 21:05
[2016-11-28] MEDS: Albuterol-Ipratrop 3 mg / 0.5 (3 ml) UD IH SCH ×5 (01:33→19:50)
[2016-11-28 04:07] LABS: BLOOD UREA NITROGEN 23 mg/dL (7-21); CALCIUM 10.4 mg/dL (8.4-10.5); CARBON DIOXIDE 36 mmol/L (21-33); CHLORIDE 94 mmol/L (98-107); GFR AFRICAN-AMERICAN > 60; GLUCOSE,RANDOM 221 mg/dL (70-110); POTASSIUM 3.9 mmol/L (3.6-5.0); SODIUM 137 mmol/L (132-148)
[2016-11-28 04:46] LABS: TROPONIN I 0.76 ng/mL
--- NOTE | 2016-11-28 06:47 | CP.PCM.PN ---
Subjective - Date & Time of Evaluation Date of Evaluation: 11/28/16 Time of Evaluation: 06:45 - Subjective Subjective: This note is continuation of my previous note , where I did note complete physical exam, assessment and plan. Objective - Vital Signs/Intake and Output Vital Signs (last 24 hours): Temp Pulse Resp BP Pulse Ox 97.9 F 77 22 168/80 H 99 11/27/16 06:50 11/27/16 23:10 11/28/16 02:36 11/27/16 22:58 11/27/16 23:10 Intake and Output: 11/27/16 11/28/16 18:59 06:59 Intake Total 783 150 Output Total 1950 Balance -1167 150 - Medications Medications: Current Medications Albuterol/Ipratropium (Duoneb 3 Mg/0.5 Mg (3 Ml) Ud) 3 ml IH [id number] [facility] Last Admin: 11/28/16 01:33 Dose: Not Given Aspirin (Ecotrin) 81 mg PO DAILY [facility] Last Admin: 11/27/16 09:44 Dose: 81 mg Atorvastatin Calcium (Lipitor) 40 mg PO DAILY [facility] Last Admin: 11/27/16 09:46 Dose: 40 mg Clopidogrel Bisulfate (Plavix) 75 mg PO DAILY [facility] Last Admin: 11/27/16 09:47 Dose: 75 mg Docusate Sodium (Colace) 100 mg PO TID [facility] Doxycycline Hyclate (Doryx) 100 mg PO Q12 [facility] PRN Reason: Protocol Last Admin: 11/27/16 21:09 Dose: 100 mg Furosemide (Lasix) 40 mg IVP DAILY [facility] Last Admin: 11/27/16 09:45 Dose: 40 mg Heparin Sodium/Dextrose (Heparin 25,000 Units/250ml In D5w) 25,000 units in 250 mls @ 10.852 mls/hr IV .Q23H3M PRN; Protocol; 14.5 UNITS/KG/HR PRN Reason: ADJUST RATE PER PROTOCOL Last Titration: 11/28/16 05:28 Dose: 22.04 units/kg/hr, 16.5 mls/hr Insulin Human Regular (Humulin R Low) 0 units SC ACHS [facility] PRN Reason: Protocol Last Admin: 11/27/16 21:08 Dose: Not Given Metformin HCl (Glucophage) 500 mg PO DAILY [facility] Last Admin: 11/27/16 09:45 Dose: 500 mg Methylprednisolone (Solu-Medrol) 40 mg IVP Q12 [facility] Last Admin: 11/27/16 21:08 Dose: 40 mg Metoprolol Succinate (Toprol Xl) 25 mg PO DAILY [facility] Last Admin: 11/27/16 09:47 Dose: 25 mg Montelukast Sodium (Singulair) 10 mg PO DAILY [facility] Last Admin: 11/27/16 09:47 Dose: 10 mg (Febuxostat [Uloric] (40 Mg)Home Med) 40 mg PO DAILY [facility] Tamsulosin HCl (Flomax) 0.4 mg PO DAILY [facility] Last Admin: 11/27/16 09:45 Dose: 0.4 mg Valsartan (Diovan) 320 mg PO DAILY [facility] Last Admin: 11/27/16 09:44 Dose: 320 mg - Labs Labs: 11/27/16 07:35 11/28/16 03:40 PT 11.5 Seconds (9.9-11.8) 11/26/16 17:39 INR 1.06 (0.93-1.08) 11/26/16 17:39 APTT 42.6 Seconds (23.7-30.8) H 11/28/16 03:40 - Constitutional Appears: Well, No Acute Distress - Head Exam Head Exam: ATRAUMATIC, NORMAL INSPECTION, NORMOCEPHALIC - Eye Exam Eye Exam: Normal appearance - ENT Exam ENT Exam: Normal External Ear Exam - Neck Exam Neck Exam: Normal Inspection - Respiratory Exam Respiratory Exam: NORMAL BREATHING PATTERN - Cardiovascular Exam Cardiovascular Exam: absent: JVD - Rectal Exam Rectal Exam: Deferred - Exam Additional comments: Deferred. - Extremities Exam Extremities Exam: Normal Inspection - Back Exam Back Exam: NORMAL INSPECTION - Neurological Exam Neurological Exam: Alert Additional comments: Agitated. - Psychiatric Exam Psychiatric exam: Agitated - Skin Skin Exam: Normal Color Assessment and Plan - Assessment and Plan (Free Text) Assessment: Constipation. Chest pain. Agitation. DM. CAD. COPD. HTN. CHF. Elevated [place]. Plan: Glycerine suppository I NTP 1 " stat. Ativan 1 mg IM x 1. Continue present management.
--- NOTE | 2016-11-28 07:11 | CARD ---
APPROVED REPORT EXAM: Two-dimensional and M-mode echocardiogram with Doppler and color Doppler. Other Information Quality : FairRhythm : INDICATION Chest Pain , Edema 2D DIMENSIONS Left Atrium (2D)4.4 (1.6-4.0cm)IVSd1.3 (0.7-1.1cm) LVDd5.3 (3.9-5.9cm)PWd1.2 (0.7-1.1cm) LVDs4.1 (2.5-4.0cm)FS (%) 22.9 % LVEF (%)45.0 (>50%) M-Mode DIMENSIONS Aortic Root3.40 (2.2-3.7cm)Aortic Cusp Exc.1.60 (1.5-2.0cm) Aortic Valve AoV Peak Hqwmpqjf702.0cm/s Mitral Valve E/A ratio0.0 TDI E/Lateral E'0.0E/Medial E'0.0 Pulmonary Valve PV Peak Cqimixbu06.1cm/sPV Peak Grad.2mmHg Tricuspid Valve TR Peak [id number]/sRAP [id number] Peak Gr.60mmHg [id number] LEFT VENTRICLE The left ventricle is normal size. There is mild concentric left ventricular hypertrophy. Left ventricle systolic function is mildly impaired. The Ejection Fraction is 45-50%. There is mild global hypokinesis. RIGHT VENTRICLE The right ventricle is normal size. ATRIA The left atrium is mildly dilated. The right atrium size is normal. The interatrial septum is intact with no evidence for an atrial septal defect. AORTIC VALVE The aortic valve is normal in structure. MITRAL VALVE The mitral valve is normal in structure. Mitral regurgitation is moderate. TRICUSPID VALVE The tricuspid valve is normal in structure. There is moderate tricuspid regurgitation. There is severe pulmonary hypertension. PULMONIC VALVE The pulmonic valve is not well visualized. PERICARDIAL EFFUSION There is no pericardial effusion. <Conclusion> The left ventricle is normal size. There is mild concentric left ventricular hypertrophy. Left ventricle systolic function is mildly impaired. The Ejection Fraction is 45-50%. There is mild global hypokinesis.The inferior segment is moderately hypokinetic. Mitral regurgitation is moderate. There is moderate tricuspid regurgitation. There is severe pulmonary hypertension.
--- NOTE | 2016-11-28 07:32 | CP.PCM.PN ---
Subjective - Date & Time of Evaluation Date of Evaluation: 11/28/16 Time of Evaluation: 07:00 - Subjective Subjective: Events of yesterday noted. In ICU now. He was constipated with YAA pain. Troponin's are elevated. He was confused and pulled out IV's. Now resting in bed. No CP now but CP last night. No SOB. + large BM. V/S noted. RSR PE: Lungs: rhonch Cor.: S1S2, systolic murmur Abd.: soft Ext.: + edema Neuro.: alert I/O= 933/1950 Labs noted: PTT 42.6, trops.: 0.22, 0.76 ECG 11/27: RSR, PVC's, No acute changes V/Q: low prob. Echo: Mild LVD, EF ~ 45 - 50 %, moderate inferior HK, moderate MR and TR, severe PH Objective - Vital Signs/Intake and Output Vital Signs (last 24 hours): Temp Pulse Resp BP Pulse Ox 97.9 F 67 15 132/108 H 94 L 11/27/16 06:50 11/28/16 07:00 11/28/16 07:00 11/28/16 07:00 11/28/16 05:30 Intake and Output: 11/28/16 11/28/16 06:59 18:59 Intake Total 150 Balance 150 - Medications Medications: Current Medications Albuterol/Ipratropium (Duoneb 3 Mg/0.5 Mg (3 Ml) Ud) 3 ml IH [id number] [facility] Last Admin: 11/28/16 01:33 Dose: Not Given Aspirin (Ecotrin) 81 mg PO DAILY [facility] Last Admin: 11/27/16 09:44 Dose: 81 mg Atorvastatin Calcium (Lipitor) 40 mg PO DAILY [facility] Last Admin: 11/27/16 09:46 Dose: 40 mg Clopidogrel Bisulfate (Plavix) 75 mg PO DAILY [facility] Last Admin: 11/27/16 09:47 Dose: 75 mg Docusate Sodium (Colace) 100 mg PO TID [facility] Doxycycline Hyclate (Doryx) 100 mg PO Q12 [facility] PRN Reason: Protocol Last Admin: 11/27/16 21:09 Dose: 100 mg Furosemide (Lasix) 40 mg IVP DAILY [facility] Last Admin: 11/27/16 09:45 Dose: 40 mg Heparin Sodium/Dextrose (Heparin 25,000 Units/250ml In D5w) 25,000 units in 250 mls @ 10.852 mls/hr IV .Q23H3M PRN; Protocol; 14.5 UNITS/KG/HR PRN Reason: ADJUST RATE PER PROTOCOL Last Titration: 11/28/16 05:28 Dose: 22.04 units/kg/hr, 16.5 mls/hr Insulin Human Regular (Humulin R Low) 0 units SC ACHS [facility] PRN Reason: Protocol Last Admin: 11/27/16 21:08 Dose: Not Given Metformin HCl (Glucophage) 500 mg PO DAILY [facility] Last Admin: 11/27/16 09:45 Dose: 500 mg Methylprednisolone (Solu-Medrol) 40 mg IVP Q12 [facility] Last Admin: 11/27/16 21:08 Dose: 40 mg Metoprolol Succinate (Toprol Xl) 25 mg PO DAILY [facility] Last Admin: 11/27/16 09:47 Dose: 25 mg Montelukast Sodium (Singulair) 10 mg PO DAILY [facility] Last Admin: 11/27/16 09:47 Dose: 10 mg (Febuxostat [Uloric] (40 Mg)Home Med) 40 mg PO DAILY [facility] Tamsulosin HCl (Flomax) 0.4 mg PO DAILY [facility] Last Admin: 11/27/16 09:45 Dose: 0.4 mg Valsartan (Diovan) 320 mg PO DAILY [facility] Last Admin: 11/27/16 09:44 Dose: 320 mg - Labs Labs: 11/27/16 07:35 11/28/16 03:40 PT 11.5 Seconds (9.9-11.8) 11/26/16 17:39 INR 1.06 (0.93-1.08) 11/26/16 17:39 APTT 42.6 Seconds (23.7-30.8) H 11/28/16 03:40 Assessment and Plan - Assessment and Plan (Free Text) Assessment: Edema/Weakness Constipaption/YAA pain Chest Pain/+ tops/NSTEMI AMS/Confusion DVT Diabetes HBP CAD/PCI RCA COPD CHF Smoker GERD Gout HLD Blind OS Echo: Moderate MR and TR with severe PH Plan: Continue in ICU Monitor neuro signs Neuro. Evaluation Continue cardiac meds: ASA, Plavix, Heparin, metoprolol, Lipitor, Diovan, IV Furosemide. Add nitrolpaste Trend trops Check ECG today Monitor: labs, I/O, sats., trops., PTT's, neuro signs, etc. Probably cath/cor angios early next week. Will follow
[2016-11-28 07:47] LABS: ARTERIAL BLOOD GAS HCO3 27.9 mmol/L (21-28); ARTERIAL BLOOD GAS O2 CAPACITY 16.8 mL/dl (16-24); ARTERIAL BLOOD GAS O2 CONTENT 16.5 ML/dl (15-23); ARTERIAL BLOOD GAS PH 7.43 (7.35-7.45); ARTERIAL BLOOD HGB O2 SAT 96.2 % (95.0-98.0); CARBOXYHEMOGLOBIN 1.1 % (0.5-1.5); HHB 1.7 % (0-5)
--- NOTE | 2016-11-28 09:03 | PN ---
DATE: 11/27/2016 SUBJECTIVE: The patient is a 81-year-old male. The patient is examined on the bed in the ICU for telemetry bed. Looks comfortable. 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 As per nursing staff, yesterday night the patient became restless, complaining about chest pain. EKG recorded like the patient had multiple PVCs. Cardiology consult called with Dr. Silverman. Dr. Viera spoke to Dr. Silverman for above reading of PVC. According to them, cardiac enzymes ordered and they do not have telemetry bed, so transferred the patient to the unit and after that the patient became restless and then put for one-to-one. When I saw the patient in the unit, looking comfortable. No nausea, vomiting, diarrhea. No hematochezia. No swelling of the leg. PHYSICAL EXAMINATION: VITAL SIGNS: Temperature is 98.3, pulse 77, respiratory rate 30, blood pressure 168/80. HEENT: Head normocephalic, atraumatic. Eyes; PERRLA. Extraocular movements intact. Conjunctivae clear. Nose patent. Mucous membrane moist. NECK: Supple. No carotid bruits or thyromegaly. CHEST: Bilaterally symmetrical. HEART: S1 and S2 positive. LUNGS: Clear to auscultation. ABDOMEN: Soft. Bowel sounds present. No organomegaly. EXTREMITIES: No edema, no cyanosis. NEUROLOGICAL: The patient is awake, alert. Moving all 4 extremities. No focal deficits. MEDICATIONS: Uloric, Colace, Diovan, doxycycline, DuoNeb, Ecotrin, Flomax, metformin, heparin drip, Lasix, Lipitor, Plavix, Singulair, Solu-Medrol, and Toprol. LABORATORY DATA: White blood cells 8.1, hemoglobin 13.8, hematocrit 40.3, platelets 146. Sodium 135, potassium 3.6, BUN 22, creatinine 0.7, glucose 225. Troponin first set was 0.05, second set 0.22. ASSESSMENT AND PLAN: Mr. Osmel Urbina is a 81-year-old male with hypochloremia, uncontrolled diabetes mellitus, increased troponin, anemia, and proteinuria, seen by the repair manager Dr. Silverman, has history of coronary artery disease with a stent in the right coronary artery in 2016, hypertension, chronic obstructive pulmonary disease, still actively smoking as per Dr. Silverman, history of congestive heart failure, gastroesophageal reflux disease, gouty arthritis, hypercholesterolemia, the patient is blind from the left eye, deep vein thrombosis involving the right popliteal and the tibial veins and with a history of coronary artery disease and coronary stenting. Dr. Silverman added Plavix, the patient was on one-to-one and Dr. Silverman changed the patient's oral Lasix to IV Lasix, getting antibiotics. Dr. Silverman ordered echocardiography. We will continue further treatment. Gastrointestinal and deep venous thrombosis prophylaxis. Repeat labs. We will follow. Bessie Sanders MD MTDD
--- NOTE | 2016-11-28 10:38 | CT ---
PROCEDURE: CT HEAD WITHOUT CONTRAST. HISTORY: agitated, on heparin for dvt. COMPARISON: None available. TECHNIQUE: Axial computed tomography images were obtained through the head/brain without intravenous contrast. Radiation dose: Total exam DLP = 919.40 mGy-cm. This CT exam was performed using one or more of the following dose reduction techniques: Automated exposure control, adjustment of the mA and/or kV according to patient size, and/or use of iterative reconstruction technique. FINDINGS: HEMORRHAGE: No intracranial hemorrhage. BRAIN: No mass effect or edema. Moderate diffuse atrophy. Please note that the examination is limited due to patient motion artifact obscuring upper portion of the superior frontal and parietal lobes. There is mild periventricular white matter lucency consistent with chronic microvascular ischemic change. There is no evidence of acute infarct. VENTRICLES: Unremarkable. No hydrocephalus. CALVARIUM: No acute fracture. Evidence of prior surgical repair at the left superior lateral orbital margin. PARANASAL SINUSES: No evidence of sinusitis. There is an old depressed left lamina papyracea fracture. MASTOID AIR CELLS: Unremarkable as visualized. No inflammatory changes. OTHER FINDINGS: Left phthisis bulbi. Lens prosthesis. IMPRESSION: No intracranial hemorrhage. Age related atrophy and chronic white matter ischemic change. Limited examination due to patient motion. Old depressed left lamina papyracea fracture. 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
[2016-11-28] MEDS: MethylPREDNISolone 40 mg Vial IVP SCH ×2 (10:47→21:26)
[2016-11-28] MEDS: Nitroglycerin 2% Ointment Foilpak UD TOP SCH ×4 (10:47→21:27)
[2016-11-28] MEDS: Metoprolol Succinate 25 mg XL Tab PO SCH (10:47)
[2016-11-28] MEDS: Insulin Reg-LOW-Coverage SC SCH ×3 (11:43→22:25)
[2016-11-28] MEDS: Heparin 25,000units in D5W 25,000 UNITS/250 ML BAG IV PRN (11:57)
[2016-11-28] MEDS ORDERED: Heparin 25,000units in D5W 25,000 UNITS/250 ML BAG IV PRN ×2 (19:07→19:51)
--- NOTE | 2016-11-28 19:45 | CP.PCM.PN ---
Subjective - Date & Time of Evaluation Date of Evaluation: 11/28/16 Time of Evaluation: 09:00 - Subjective Subjective: Patient was seen earlier because he had requested something for bowel movement and had chest pain. States that he did not have bowel movement for 3 days.He was given MOM earlier , which did not help him. He also states that he had mild chest pain, precordia with no radiation, all day .Had no other complaints like nausea, vomiting, sweating , palpitations,sob. Medical record was reviewed. Troponin was 0.22 earlier. This 81 year old male was admitted with weakness and swelling of legs. Has PMH of CAD,HTN,CHF,COPD, DM II, Cardiac catheterization with Stent placement , constipation. reviewed dr Anderson oliveira physician , notes pt is on 1:1 . d/d with nursing staff Objective - Vital Signs/Intake and Output Vital Signs (last 24 hours): Temp Pulse Resp BP Pulse Ox 97.9 F 74 20 122/77 93 L 11/28/16 16:52 11/28/16 17:54 11/28/16 16:52 11/28/16 16:52 11/28/16 07:22 Intake and Output: 11/28/16 11/29/16 18:59 06:59 Intake Total 350 Balance 350 - Medications Medications: Current Medications Albuterol/Ipratropium (Duoneb 3 Mg/0.5 Mg (3 Ml) Ud) 3 ml IH [id number] [facility] Last Admin: 11/28/16 18:35 Dose: 3 ml Aspirin (Ecotrin) 81 mg PO DAILY [facility] Last Admin: 11/28/16 10:46 Dose: 81 mg Atorvastatin Calcium (Lipitor) 40 mg PO DAILY [facility] Last Admin: 11/28/16 10:48 Dose: 40 mg Clopidogrel Bisulfate (Plavix) 75 mg PO DAILY [facility] Last Admin: 11/28/16 10:47 Dose: 75 mg Docusate Sodium (Colace) 100 mg PO TID [facility] Last Admin: 11/28/16 18:42 Dose: Not Given Doxycycline Hyclate (Doryx) 100 mg PO Q12 [facility] PRN Reason: Protocol Last Admin: 11/28/16 10:46 Dose: 100 mg Furosemide (Lasix) 40 mg IVP DAILY [facility] Last Admin: 11/28/16 10:46 Dose: 40 mg Heparin Sodium/Dextrose (Heparin 25,000 Units/250ml In D5w) 25,000 units in 250 mls @ 10.852 mls/hr IV .Q23H3M PRN; Protocol; 14.5 UNITS/KG/HR PRN Reason: ADJUST RATE PER PROTOCOL Insulin Human Regular (Humulin R Low) 0 units SC ACHS [facility] PRN Reason: Protocol Last Admin: 11/28/16 16:46 Dose: 2 units Metformin HCl (Glucophage) 500 mg PO DAILY [facility] Last Admin: 11/28/16 10:46 Dose: 500 mg Methylprednisolone (Solu-Medrol) 40 mg IVP Q12 [facility] Last Admin: 11/28/16 10:47 Dose: 40 mg Metoprolol Succinate (Toprol Xl) 25 mg PO DAILY [facility] Last Admin: 11/28/16 10:47 Dose: 25 mg Montelukast Sodium (Singulair) 10 mg PO DAILY [facility] Last Admin: 11/28/16 10:47 Dose: 10 mg Nitroglycerin (Nitro-Bid 2% Oint) 1 ea TOP Q4H [facility] Last Admin: 11/28/16 16:42 Dose: 1 ea (Febuxostat [Uloric] (40 Mg)Home Med) 40 mg PO DAILY [facility] Last Admin: 11/28/16 11:05 Dose: 40 mg Tamsulosin HCl (Flomax) 0.4 mg PO DAILY [facility] Last Admin: 11/28/16 10:46 Dose: 0.4 mg Valsartan (Diovan) 320 mg PO DAILY [facility] Last Admin: 11/28/16 10:45 Dose: 320 mg - Labs Labs: 11/27/16 07:35 11/28/16 03:40 PT 11.5 Seconds (9.9-11.8) 11/26/16 17:39 INR 1.06 (0.93-1.08) 11/26/16 17:39 APTT 81.5 Seconds (23.7-30.8) H* 11/28/16 18:20 - Constitutional Appears: Well - Head Exam Head Exam: ATRAUMATIC, NORMAL INSPECTION, NORMOCEPHALIC - Eye Exam Eye Exam: EOMI, Normal appearance, PERRL Pupil Exam: NORMAL ACCOMODATION, PERRL - ENT Exam ENT Exam: Mucous Membranes Moist, Normal Exam - Neck Exam Neck Exam: Full ROM, Normal Inspection. absent: Lymphadenopathy - Respiratory Exam Respiratory Exam: Clear to Ausculation Bilateral, NORMAL BREATHING PATTERN - Cardiovascular Exam Cardiovascular Exam: REGULAR RHYTHM, +S1, +S2. absent: Murmur - GI/Abdominal Exam GI & Abdominal Exam: Soft, Normal Bowel Sounds. absent: Tenderness - Rectal Exam Rectal Exam: NORMAL INSPECTION - Exam Exam: Circumcision, NORMAL INSPECTION External exam: NORMAL EXTERNAL EXAM Speculum exam: NORMAL SPECULUM EXAM Bimanual exam: NORMAL BIMANUAL EXAM - Extremities Exam Extremities Exam: Full ROM, Normal Capillary Refill, Normal Inspection. absent : Joint Swelling, Pedal Edema - Back Exam Back Exam: NORMAL INSPECTION - Neurological Exam Neurological Exam: Alert, Awake, CN II-XII Intact, Normal Gait, Oriented x3 - Psychiatric Exam Psychiatric exam: Normal Affect, Normal Mood - Skin Skin Exam: Dry, Intact, Normal Color, Warm Assessment and Plan (1) COPD (chronic obstructive pulmonary disease) Status: Acute (2) DVT (deep venous thrombosis) Status: Acute (3) Leg edema Status: Acute (4) Alcohol abuse Status: Acute (5) Asthma Status: Acute (6) COPD with acute exacerbation Status: Acute (7) Cough with hemoptysis Status: Acute (8) Elevated brain natriuretic peptide (BNP) level Status: Acute (9) Flu Status: Acute (10) Frequent PVCs Status: Acute (11) Hypokalemia Status: Acute (12) Hypomagnesemia Status: Acute (13) Influenza A Status: Acute (14) Pneumonia Status: Acute (15) Prophylactic measure Status: Acute (16) Shoulder pain, left Status: Acute (17) Tobacco abuse Status: Acute (18) CAD (coronary artery disease) Status: Chronic (19) Diabetes Status: Chronic (20) Hypertension Status: Chronic - Assessment and Plan (Free Text) Assessment: A/P Events of yesterday noted the In ICU. He was constipated with YAA pain. Troponin 's are elevated. He was confused and pulled out IV's. Now resting in bed. No CP now but CP last night. No SOB. + large BM. Edema/Weakness Chest Pain/+ tops/NSTEMI AMS/Confusion DVT Diabetes HBP CAD/PCI RCA COPD CHF Smoker GERD Gout HLD Blind OS Echo: Moderate MR and TR with severe PH Plan: Continue in ICU Monitor neuro signs Neuro. Evaluation Continue cardiac meds: ASA, Plavix, Heparin, metoprolol, Lipitor, Diovan, IV Furosemide. Add nitrolpaste Trend trops Check ECG today Monitor: labs, I/O, sats., trops., PTT's, neuro signs, etc. Probably cath/cor angios early next week. Will follow
--- NOTE | 2016-11-28 20:11 | CARD ---
APPROVED REPORT EKG Measurement Heart [id number] <Conclusion> Sinus rhythm with sinus arrhythmia with occasional premature ventricular complexes Incomplete left bundle branch block Borderline ECG
--- NOTE | 2016-11-28 21:56 | PN ---
DATE: 11/28/2016 PULMONARY PROGRESS NOTE REFERRING PHYSICIAN: Dr. Sanders. SUBJECTIVE: He is out of bed to chair. Feels better, decreased cough and shortness of breath. No nausea. No vomiting. No diarrhea. Decreased leg swelling. Has JOSEFINA stockings of both lower extremities. OBJECTIVE: GENERAL: In no acute distress. VITAL SIGNS: Temperature is 98, heart rate is 110, respiratory rate is 20, blood pressure 161/88, pulse ox 93% on 3 liters nasal cannula. HEENT: Moist mucous membranes. Crowded airway. Mallampati score is IV. NECK: Supple. No JVD. LUNGS: Had scattered rhonchi. He has prolonged expiratory phase. HEART: S1, S2. ABDOMEN: Soft and nontender. No organomegaly. EXTREMITIES: JOSEFINA stockings. The right leg still has more swelling than the left. NEUROLOGIC: Awake, alert and follows simple commands. MEDICATIONS: He is on Uloric 40 mg daily, Colace 100 mg 3 times a day, Diovan 320 mg daily, doxycycline 100 mg twice a day, DuoNeb q. 6 hours, Ecotrin 81 mg daily, Flomax 0.4 mg daily, metformin 500 mg daily, heparin weight-based protocol, Lasix 40 mg daily, Lipitor 40 mg daily, Plavix 75 mg daily, Singulair 10 mg daily, Solu-Medrol 1 g q.12 hours, and Toprol-XL 25 mg daily. LABORATORY DATA: Shows INR is 48. ABG then shows pH 7.43, pCO2 42, O2 96. Chemistry shows sodium 137, potassium 3.9, chloride 94, bicarbonate 30, BUN 26, creatinine 0.7, glucose 221, calcium is 10.4. Troponin is 0.76. Had a CAT scan of the head done today, which shows low intracranial hemorrhage, age-related atrophy, and chronic white matter ischemic changes, has an old depressed left lamina papyracea fracture, old left phthisis bulbi. IMPRESSION AND PLAN: DVT of the right lower extremity, chronic obstructive lung disease, [place], heart failure, coronary artery disease, hypertension, diabetes, GERD. From a pulmonary point of view, continue IV and inhaled bronchodilator, on anticoagulation, gastric prophylaxis, fall precautions. Had echocardiogram done, which shows right ventricular systolic pressure is 70, LV ejection fraction is 45% to 50%, moderate tricuspid regurgitation. His VQ scan was negative for PE, may have a sleep apnea syndrome. For now continue anticoagulation bronchodilator, outpatient attended sleep study, cardiology followup. Krista Porter MD
[2016-11-29] MEDS: Nitroglycerin 2% Ointment Foilpak UD TOP SCH ×7 (00:35→23:44)
[2016-11-29] MEDS: Albuterol-Ipratrop 3 mg / 0.5 (3 ml) UD IH SCH ×4 (01:00→19:44)
[2016-11-29] MEDS ORDERED: Heparin 25,000units in D5W/250 ML BAG IV PRN ×2 (02:11→02:24)
[2016-11-29] MEDS: Heparin 25,000units in D5W/250 ML BAG IV PRN ×2 (02:38→15:35)
--- NOTE | 2016-11-29 05:54 | CP.PCM.PN ---
Subjective - Date & Time of Evaluation Date of Evaluation: 11/29/16 Time of Evaluation: 05:53 - Subjective Subjective: Blood was drawn from right hand dorsum for PTT. Dx:Poor venous access. Objective - Vital Signs/Intake and Output Vital Signs (last 24 hours): Temp Pulse Resp BP Pulse Ox 97.9 F 70 20 122/77 93 L 11/28/16 16:52 11/28/16 22:00 11/28/16 16:52 11/28/16 16:52 11/28/16 07:22 Intake and Output: 11/28/16 11/29/16 18:59 06:59 Intake Total 350 Balance 350 - Medications Medications: Current Medications Albuterol/Ipratropium (Duoneb 3 Mg/0.5 Mg (3 Ml) Ud) 3 ml IH [id number] [facility] Last Admin: 11/29/16 01:00 Dose: 3 ml Aspirin (Ecotrin) 81 mg PO DAILY [facility] Last Admin: 11/28/16 10:46 Dose: 81 mg Atorvastatin Calcium (Lipitor) 40 mg PO DAILY [facility] Last Admin: 11/28/16 10:48 Dose: 40 mg Clopidogrel Bisulfate (Plavix) 75 mg PO DAILY [facility] Last Admin: 11/28/16 10:47 Dose: 75 mg Docusate Sodium (Colace) 100 mg PO TID [facility] Last Admin: 11/28/16 18:42 Dose: Not Given Doxycycline Hyclate (Doryx) 100 mg PO Q12 [facility] PRN Reason: Protocol Last Admin: 11/28/16 21:27 Dose: 100 mg Furosemide (Lasix) 40 mg IVP DAILY [facility] Last Admin: 11/28/16 10:46 Dose: 40 mg Heparin Sodium/Dextrose (Heparin 25,000 Units/250ml In D5w) 25,000 units in 250 mls @ 17.388 mls/hr IV .[id number] PRN; Protocol PRN Reason: ADJUST RATE PER PROTOCOL Last Admin: 11/29/16 02:38 Dose: 17.4 mls/hr Insulin Human Regular (Humulin R Low) 0 units SC ACHS [facility] PRN Reason: Protocol Last Admin: 11/28/16 22:25 Dose: Not Given Metformin HCl (Glucophage) 500 mg PO DAILY [facility] Last Admin: 11/28/16 10:46 Dose: 500 mg Methylprednisolone (Solu-Medrol) 40 mg IVP Q12 [facility] Last Admin: 11/28/16 21:26 Dose: 40 mg Metoprolol Succinate (Toprol Xl) 25 mg PO DAILY [facility] Last Admin: 11/28/16 10:47 Dose: 25 mg Montelukast Sodium (Singulair) 10 mg PO DAILY [facility] Last Admin: 11/28/16 10:47 Dose: 10 mg Nitroglycerin (Nitro-Bid 2% Oint) 1 ea TOP Q4H [facility] Last Admin: 11/29/16 03:13 Dose: 1 ea (Febuxostat [Uloric] (40 Mg)Home Med) 40 mg PO DAILY [facility] Last Admin: 11/28/16 11:05 Dose: 40 mg Tamsulosin HCl (Flomax) 0.4 mg PO DAILY [facility] Last Admin: 11/28/16 10:46 Dose: 0.4 mg Valsartan (Diovan) 320 mg PO DAILY [facility] Last Admin: 11/28/16 10:45 Dose: 320 mg - Labs Labs: 11/27/16 07:35 11/28/16 03:40 PT 11.5 Seconds (9.9-11.8) 11/26/16 17:39 INR 1.06 (0.93-1.08) 11/26/16 17:39 APTT 48.3 Seconds (23.7-30.8) H 11/29/16 01:20
--- NOTE | 2016-11-29 07:27 | CP.PCM.PN ---
Subjective - Date & Time of Evaluation Date of Evaluation: 11/29/16 Time of Evaluation: 07:00 - Subjective Subjective: Stable on 2R now. No CP or SOB. Soft exp wheeze noted. More alert. 1:1 sitter. V/S noted. RSR PE: Lungs: soft exp wheeze Cor.: S1S2, systolic murmur Abd.: soft Ext.: mild edema Neuro.: alert Labs 11/28 noted. PTT todat= 48.3 ECG 11/28: RSR, PVC's, IVCD, No acute changes. V/Q: low prob. Echo: Mild LVD, EF ~ 45 - 50 %, moderate inferior HK, moderate MR and TR, severe PH CT Head noted. Objective - Vital Signs/Intake and Output Vital Signs (last 24 hours): Temp Pulse Resp BP Pulse Ox 97.9 F 73 20 122/77 93 L 11/28/16 16:52 11/29/16 06:00 11/28/16 16:52 11/28/16 16:52 11/28/16 07:22 Intake and Output: 11/29/16 11/29/16 06:59 18:59 Intake Total 173 Balance 173 - Medications Medications: Current Medications Albuterol/Ipratropium (Duoneb 3 Mg/0.5 Mg (3 Ml) Ud) 3 ml IH [id number] [facility] Last Admin: 11/29/16 01:00 Dose: 3 ml Aspirin (Ecotrin) 81 mg PO DAILY [facility] Last Admin: 11/28/16 10:46 Dose: 81 mg Atorvastatin Calcium (Lipitor) 40 mg PO DAILY [facility] Last Admin: 11/28/16 10:48 Dose: 40 mg Clopidogrel Bisulfate (Plavix) 75 mg PO DAILY [facility] Last Admin: 11/28/16 10:47 Dose: 75 mg Docusate Sodium (Colace) 100 mg PO TID [facility] Last Admin: 11/28/16 18:42 Dose: Not Given Doxycycline Hyclate (Doryx) 100 mg PO Q12 [facility] PRN Reason: Protocol Last Admin: 11/28/16 21:27 Dose: 100 mg Furosemide (Lasix) 40 mg IVP DAILY [facility] Last Admin: 11/28/16 10:46 Dose: 40 mg Heparin Sodium/Dextrose (Heparin 25,000 Units/250ml In D5w) 25,000 units in 250 mls @ 17.388 mls/hr IV .[id number] PRN; Protocol PRN Reason: ADJUST RATE PER PROTOCOL Last Admin: 11/29/16 02:38 Dose: 17.4 mls/hr Insulin Human Regular (Humulin R Low) 0 units SC ACHS [facility] PRN Reason: Protocol Last Admin: 11/28/16 22:25 Dose: Not Given Metformin HCl (Glucophage) 500 mg PO DAILY [facility] Last Admin: 11/28/16 10:46 Dose: 500 mg Methylprednisolone (Solu-Medrol) 40 mg IVP Q12 [facility] Last Admin: 11/28/16 21:26 Dose: 40 mg Metoprolol Succinate (Toprol Xl) 25 mg PO DAILY [facility] Last Admin: 11/28/16 10:47 Dose: 25 mg Montelukast Sodium (Singulair) 10 mg PO DAILY [facility] Last Admin: 11/28/16 10:47 Dose: 10 mg Nitroglycerin (Nitro-Bid 2% Oint) 1 ea TOP Q4H [facility] Last Admin: 11/29/16 03:13 Dose: 1 ea (Febuxostat [Uloric] (40 Mg)Home Med) 40 mg PO DAILY [facility] Last Admin: 11/28/16 11:05 Dose: 40 mg Tamsulosin HCl (Flomax) 0.4 mg PO DAILY [facility] Last Admin: 11/28/16 10:46 Dose: 0.4 mg Valsartan (Diovan) 320 mg PO DAILY [facility] Last Admin: 11/28/16 10:45 Dose: 320 mg - Labs Labs: 11/27/16 07:35 11/28/16 03:40 PT 11.5 Seconds (9.9-11.8) 11/26/16 17:39 INR 1.06 (0.93-1.08) 11/26/16 17:39 APTT 48.3 Seconds (23.7-30.8) H 11/29/16 01:20 Assessment and Plan - Assessment and Plan (Free Text) Assessment: Edema/Weakness Constipaption/YAA pain Chest Pain/+ tops/NSTEMI AMS/Confusion DVT Diabetes HBP CAD/PCI RCA COPD CHF Smoker GERD Gout HLD Blind OS Echo: Moderate MR and TR with severe PH Plan: Pulm. tx., as per Dr. Porter. Continue cardiac meds: ASA, Plavix, Heparin, metoprolol, Lipitor, Diovan, IV Furosemide, nitrolpaste. Check todays trop. Monitor: labs, I/O, sats., trops., PTT's, neuro signs, etc. Probably cath/cor angios early next week. Will follow
[2016-11-29] MEDS: Insulin Reg-LOW-Coverage SC SCH ×3 (08:16→21:30)
[2016-11-29] MEDS: MethylPREDNISolone 40 mg Vial IVP SCH ×2 (09:17→21:06)
[2016-11-29] MEDS: Metoprolol Succinate 25 mg XL Tab PO SCH (09:19)
--- NOTE | 2016-11-29 16:21 | PN ---
REFERRING PHYSICIAN: Dr. Sanders. SUBJECTIVE: He is out of bed to reclining chair, sleepy, arousable, under one-to-one supervision, very compulsive, mild cough and shortness of breath. No chest pain. No nausea. No vomiting. No diarrhea. Has a JOSEFINA stocking with decreased leg swelling. OBJECTIVE: GENERAL: No acute distress. VITAL SIGNS: Temperature is 98, heart rate is 68, respiratory rate is 20, blood pressure 120/74, pulse ox 93% on 3 liters nasal cannula. HEENT: Moist mucous membranes. Crowded airway. Mallampati score is IV. NECK: Supple. No JVD. LUNGS: Has scattered rhonchi and few wheezing. HEART: S1 and S2. ABDOMEN: Soft, nontender. No organomegaly. EXTREMITIES: Decreased lower extremity edema. Still has some thigh edema. NEUROLOGIC: Sleepy, arousable, follows simple commands. MEDICATIONS: He is on Uloric 40 mg daily, Colace 100 mg 3 times a day, Diovan 320 mg daily, doxycycline 100 mg twice a day, DuoNeb q. 6 hours, Ecotrin 81 mg daily, Flomax 0.4 mg daily, metformin 500 mg daily, heparin weight-based protocol, Lasix 40 mg daily, Lipitor 40 mg daily, Plavix 75 mg daily, Singulair 10 mg daily, Solu-Medrol 40 mg q.12 hours, Toprol-XL 25 mg daily. LABORATORY DATA: Today's PTT is 76. Blood sugar 183. Troponin is 0.17. Had a CAT scan of the head done yesterday which showed no intracranial hemorrhage, age-related atrophy and chronic white matter ischemic changes. IMPRESSION AND PLAN: Deep venous thrombosis of the right lower extremity with swelling and tenderness, chronic obstructive lung disease, myocardial infarction, heart failure, coronary artery disease, hypertension, diabetes, gastroesophageal reflux disease, may have sleep apnea syndrome, has cardiac enzyme positive, presently on heparin. We will not add Coumadin for now. Reviewing cardiology note seems like he may be scheduled for cardiac cath next week, does have a cardiomyopathy with decreased LV function and high pulmonary pressure. Continue heparin IV and inhaled bronchodilator. We will decrease Solu-Medrol though. Fall precaution. Will need attended sleep study as an outpatient, PFT as outpatient. Thank you and we will follow with you. Krista Porter MD [facility] # [id number]
--- NOTE | 2016-11-29 20:52 | PN ---
SUBJECTIVE: The patient is a 81-year-old male. The patient is seen and examined at the bedside. He is on 1:1 getting episodes of confusion and no nausea, vomiting or diarrhea. No hematuria or hematochezia. No headache. No dizziness. No chest pain. No palpitations. PHYSICAL EXAMINATION: VITAL SIGNS: Temperature is 97.0, pulse 81, blood pressure 130/70, respiratory rate is 16 and pulse oxygenation 97% on room air. HEENT: Head is normocephalic and atraumatic. Eyes; PERRLA. Extraocular muscles intact. Conjunctivae clear. Nose patent. Mucous membranes moist. NECK: Supple. No carotid bruit. No thyromegaly. CHEST: Bilaterally symmetrical. HEART: S1 and S2 positive. LUNGS: Clear to auscultation. ABDOMEN: Soft. Bowel sounds positive. No organomegaly. EXTREMITIES: Trace edema. NEUROLOGIC: The patient is awake and alert. Moving all four extremities, following simple commands. MEDICATIONS: Uloric, Colace, Diovan, doxycycline,DuoNeb, metformin, heparin drip, insulin, Flomax, Ecotrin, Glucophage, Lipitor, Nitro-Bid, Plavix, aztreonam, Toprol, tapering dose of Solu-Medrol and Singulair. LABORATORY DATA: We do not have recent CBC today. Glucose 187, 227, 272, 181, 97. Troponin is 0.17 done today. Urine has protein and small bilirubin. ASSESSMENT AND PLAN: Mr. Osmel Urbina is a 81-year-old male with history of anemia, uncontrolled diabetes mellitus, proteinuria, hyperbilirubinemia. I reviewed Dr. Porter's and Dr. Silverman's note and Dr. Chinchilla's notes. The patient has a deep vein thrombosis of the right lower extremity with swelling and tenderness, history of chronic obstructive lung disease, myocardial infarction, congestive heart failure, coronary artery disease, Dr. Silverman is taking care of heart problems, hypertension, gastroesophageal reflux disease, sleep apnea syndrome. Cardiac enzymes are positive. The patient is on heparin. According to Dr. Silverman's note, he want to do procedure next week. That is why we are still keeping the patient on heparin and not starting the Coumadin. The patient has cardiomyopathy with decreased left ventricular function and high pulmonary pressure. Continue heparin and bronchodilators, tapering dose of Solu-Medrol. CAT scan of the head was reviewed by me. Gastroesophageal reflux disease, gouty arthritis, blind left eye. Echo shows moderate mitral regurgitation and tricuspid regurgitation . 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 GI and DVT prophylaxis. According to CAT scan, the patient do not have intracranial hemorrhage, age-related atrophy and chronic white matter ischemic changes. 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 We will follow up. Bessie Sanders MD MTDD
--- NOTE | 2016-11-29 22:34 | CP.PCM.PN ---
Subjective - Date & Time of Evaluation Date of Evaluation: 11/29/16 Time of Evaluation: 22:34 - Subjective Subjective: Patient was seen by bedside for his blood pressure was 172/95, heart rate 70/ min. Metoprolol 25 mg PO was ordered and given to him. When I started asking him questions , he got little agitated and did not answer questions to the point. Medical record was reviewed. 81 year old male was admitted with weakness and swelling of legs. PMH : CAD,CHF,HTN,COPD, DM II, constipation,Cardiac catheterization with Stent placement . Objective - Vital Signs/Intake and Output Vital Signs (last 24 hours): Temp Pulse Resp BP Pulse Ox 97.0 F L 81 16 139/78 97 11/29/16 18:00 11/29/16 18:00 11/29/16 18:00 11/29/16 18:00 11/29/16 18:00 Intake and Output: 11/29/16 11/30/16 18:59 06:59 Intake Total 550 Output Total 740 Balance -190 - Medications Medications: Current Medications Albuterol/Ipratropium (Duoneb 3 Mg/0.5 Mg (3 Ml) Ud) 3 ml IH [id number] [facility] Last Admin: 11/29/16 19:44 Dose: 3 ml Aspirin (Ecotrin) 81 mg PO DAILY [facility] Last Admin: 11/29/16 09:18 Dose: 81 mg Atorvastatin Calcium (Lipitor) 40 mg PO DAILY [facility] Last Admin: 11/29/16 09:18 Dose: 40 mg Clopidogrel Bisulfate (Plavix) 75 mg PO DAILY [facility] Last Admin: 11/29/16 09:18 Dose: 75 mg Docusate Sodium (Colace) 100 mg PO TID [facility] Last Admin: 11/29/16 17:00 Dose: 100 mg Doxycycline Hyclate (Doryx) 100 mg PO Q12 [facility] PRN Reason: Protocol Last Admin: 11/29/16 21:06 Dose: 100 mg Furosemide (Lasix) 40 mg IVP DAILY [facility] Last Admin: 11/29/16 09:18 Dose: 40 mg Heparin Sodium/Dextrose (Heparin 25,000 Units/250ml In D5w) 25,000 units in 250 mls @ 17.388 mls/hr IV .[id number] PRN; Protocol PRN Reason: ADJUST RATE PER PROTOCOL Last Admin: 11/29/16 15:35 Dose: 17.4 mls/hr Insulin Human Regular (Humulin R Low) 0 units SC ACHS [facility] PRN Reason: Protocol Last Admin: 11/29/16 21:30 Dose: Not Given Metformin HCl (Glucophage) 500 mg PO DAILY [facility] Last Admin: 11/29/16 09:18 Dose: 500 mg Methylprednisolone (Solu-Medrol) 20 mg IVP Q12 [facility] Last Admin: 11/29/16 21:06 Dose: 20 mg Metoprolol Succinate (Toprol Xl) 25 mg PO DAILY [facility] Last Admin: 11/29/16 09:19 Dose: 25 mg Montelukast Sodium (Singulair) 10 mg PO DAILY [facility] Last Admin: 11/29/16 09:19 Dose: 10 mg Nitroglycerin (Nitro-Bid 2% Oint) 1 ea TOP Q4H [facility] Last Admin: 11/29/16 20:11 Dose: 1 ea (Febuxostat [Uloric] (40 Mg)Home Med) 40 mg PO DAILY [facility] Last Admin: 11/29/16 12:11 Dose: 40 mg Tamsulosin HCl (Flomax) 0.4 mg PO DAILY [facility] Last Admin: 11/29/16 10:10 Dose: 0.4 mg Valsartan (Diovan) 320 mg PO DAILY [facility] Last Admin: 11/29/16 09:18 Dose: 320 mg - Labs Labs: 11/27/16 07:35 11/28/16 03:40 PT 11.5 Seconds (9.9-11.8) 11/26/16 17:39 INR 1.06 (0.93-1.08) 11/26/16 17:39 APTT 76.2 Seconds (23.7-30.8) H* 11/29/16 14:45 Micro Results 11/27/16 09:03 Nose MRSA Culture (Admit) - Final MRSA NOT DETECTED 11/25/16 12:51 Urine Urine Culture - Final No Growth (<1,000 CFU/ML) Most Recent Lab Values WBC 8.1 10^3/ul (4.5-11.0) D 11/27/16 07:35 RBC 4.25 10^6/uL (3.5-6.1) 11/27/16 07:35 Hgb 13.8 gm/dL (14.0-18.0) L 07/21/17 07:35 Hct 40.3 % (42.0-52.0) L 11/27/16 07:35 MCV 94.8 fL (80.0-105.0) 11/27/16 07:35 MCH 32.5 pg (25.0-35.0) 11/27/16 07:35 MCHC 34.2 g/dl (31.0-37.0) 11/27/16 07:35 RDW 13.9 % (11.5-14.5) 11/27/16 07:35 Plt Count 146 10^3/uL (120.0-450.0) 11/27/16 07:35 MPV 11.0 fl (7.0-11.0) 11/27/16 07:35 Gran % 87.9 % (50.0-68.0) H 11/27/16 07:35 Lymph % (Auto) 6.6 % (22.0-35.0) L 11/27/16 07:35 Haakon % (Auto) 5.5 % (1.0-6.0) 11/27/16 07:35 Eos % (Auto) 0.0 % (1.5-5.0) L 11/27/16 07:35 Baso % (Auto) 0.0 % (0.0-3.0) 11/27/16 07:35 Gran # 7.08 (1.4-6.5) H 11/27/16 07:35 Lymph # 0.5 (1.2-3.4) L 11/27/16 07:35 Haakon # 0.4 (0.1-0.6) 11/27/16 07:35 Eos # 0.0 (0.0-0.7) 11/27/16 07:35 Baso # 0.00 K/mm3 (0.0-2.0) 11/27/16 07:35 PT 11.5 Seconds (9.9-11.8) 11/26/16 17:39 INR 1.06 (0.93-1.08) 11/26/16 17:39 APTT 76.2 Seconds (23.7-30.8) H* 11/29/16 14:45 pCO2 42 mm/Hg (35-45) 11/28/16 07:30 pO2 96.0 mm/Hg (80-100) 11/28/16 07:30 HCO3 27.9 mmol/L (21-28) 11/28/16 07:30 ABG pH 7.43 (7.35-7.45) 11/28/16 07:30 ABG Total CO2 29.2 mmol.L (22-28) H 11/28/16 07:30 ABG O2 Saturation 98.3 % (95-98) H 11/28/16 07:30 ABG O2 Content 16.5 ML/dl (15-23) 11/28/16 07:30 ABG Base Excess 3.2 mmol/L (-2.0-3.0) H 11/28/16 07:30 ABG Hemoglobin 12.1 g/dL (11.7-17.4) 11/28/16 07:30 ABG Carboxyhemoglobin 1.1 % (0.5-1.5) 11/28/16 07:30 POC ABG HHb (Measured) 1.7 % (0-5) 11/28/16 07:30 ABG Methemoglobin 1.0 % (0.0-3.0) 11/28/16 07:30 ABG O2 Capacity 16.8 mL/dl (16-24) 11/28/16 07:30 VBG pH 7.38 (7.32-7.43) 11/25/16 12:15 VBG pCO2 62.0 (40-60) H 11/25/16 12:15 VBG HCO3 36.7 mmol/l (21-28) H 11/25/16 12:15 VBG Total CO2 38.6 mmol.L (22-28) H 11/25/16 12:15 VBG O2 Sat (Calc) 67.8 % (40-65) H 11/25/16 12:15 VBG Base Excess 9.2 mmol/L (0.0-2.0) H 11/25/16 12:15 VBG Potassium 3.2 mmol/L (3.6-5.2) L 11/25/16 12:15 Hgb O2 Saturation 96.2 % (95.0-98.0) 11/28/16 07:30 Sodium 140.0 mmol/L (132-148) 11/25/16 12:15 Chloride 99.0 mmol/L (98-107) 11/25/16 12:15 Glucose 113 mg/dl (75-110) H 11/25/16 12:15 Lactate 1.5 mmol/L (0.7-2.1) 11/25/16 12:15 FiO2 32.0 % 11/28/16 07:30 Sodium 137 mmol/L (132-148) 11/28/16 03:40 Potassium 3.9 mmol/L (3.6-5.0) 11/28/16 03:40 Chloride 94 mmol/L (98-107) L 11/28/16 03:40 Carbon Dioxide 36 mmol/L (21-33) H 11/28/16 03:40 Anion Gap 11 (10-20) 11/28/16 03:40 BUN 23 mg/dL (7-21) H 11/28/16 03:40 Creatinine 0.7 mg/dL (0.5-1.4) 11/28/16 03:40 Est GFR ( Amer) > 60 11/28/16 03:40 Est GFR (Non-Af Amer) > 60 11/28/16 03:40 POC Glucose (mg/dL) 183 mg/dL (65-110) H 11/28/16 22:23 Random Glucose 221 mg/dL (70-110) H 11/28/16 03:40 Hemoglobin A1c 5.6 % (4.2-6.5) 11/26/16 07:30 Calcium 10.4 mg/dL (8.4-10.5) 11/28/16 03:40 Phosphorus 3.0 mg/dL (2.5-4.5) 11/27/16 07:35 Magnesium 1.8 mg/dL (1.7-2.2) 11/27/16 07:35 Iron 36 ug/dL (45-180) L 11/26/16 06:40 TIBC 236 ug/dL (261-462) L 11/26/16 06:40 % Saturation 15 % (20-55) L 11/26/16 06:40 Total Bilirubin 0.6 mg/dL (0.2-1.3) 11/27/16 07:35 AST 45 U/L (15-59) 11/27/16 07:35 ALT 35 U/L (7-56) 11/27/16 07:35 Alkaline Phosphatase 91 U/L (38-133) 11/27/16 07:35 Lactate Dehydrogenase 500 U/L (333-699) 11/25/16 12:15 Total Creatine Kinase 389 U/L (35-230) H 11/25/16 12:15 CK-MB (CK-2) 1.9 ng/mL (0.0-3.6) 11/25/16 12:15 CK-MB (CK-2) % Cancelled 11/25/16 12:15 Troponin I 0.17 ng/mL H* D 11/29/16 07:00 NT-Pro-B Natriuret Pep 2040 pg/mL (0-450) H 11/26/16 06:40 Total Protein 6.6 g/dL (5.8-8.3) 11/27/16 07:35 Albumin 3.4 g/dL (3.0-4.8) 11/27/16 07:35 Globulin 3.2 gm/dL 11/27/16 07:35 Albumin/Globulin Ratio 1.1 (1.1-1.8) 11/27/16 07:35 Triglycerides 93 mg/dL (35-160) 11/26/16 06:40 Cholesterol 156 mg/dL (130-200) 11/26/16 06:40 LDL Cholesterol Direct 60 mg/dL (0-129) 11/26/16 06:40 HDL Cholesterol 65 mg/dL (29-60) H 11/26/16 06:40 Vitamin B12 446 pg/mL (239-931) 11/26/16 06:40 Folate 7.4 ng/mL 11/26/16 06:40 TSH 3rd Generation 0.55 mIU/mL (0.46-4.68) 11/26/16 06:40 Venous Blood Potassium 3.2 mmol/L (3.6-5.2) L 11/25/16 12:15 Urine Color Dark yellow (YELLOW) 11/25/16 12:51 Urine Appearance Clear (CLEAR) 11/25/16 12:51 Urine pH 6.5 (4.7-8.0) 11/25/16 12:51 Ur Specific [place] 1.015 (1.005-1.035) 11/25/16 12:51 Urine Protein Trace mg/dL (<30 mg/dL) H 11/25/16 12:51 Urine Glucose (UA) Negative mg/dL (NEGATIVE) 11/25/16 12:51 Urine Ketones Negative mg/dL (NEGATIVE) 11/25/16 12:51 Urine Blood Negative (NEGATIVE) 11/25/16 12:51 Urine Nitrate Negative (NEGATIVE) 11/25/16 12:51 Urine Bilirubin Small (NEGATIVE) H 11/25/16 12:51 Urine Urobilinogen >=8.0 E.U./dL (<1 E.U./dL) 11/25/16 12:51 Ur Leukocyte Esterase Negative Judi/uL (NEGATIVE) 11/25/16 12:51 Urine RBC 0 - 2 /hpf (0-2) 11/25/16 12:51 Urine WBC 0 - 2 /hpf (0-6) 11/25/16 12:51 Ur Epithelial Cells 0 - 2 /hpf (0-5) 11/25/16 12:51 Urine Bacteria Trace (NEG) 11/25/16 12:51 - Constitutional Appears: Well, No Acute Distress - Head Exam Head Exam: ATRAUMATIC, NORMAL INSPECTION, NORMOCEPHALIC - Eye Exam Additional comments: Left eye blindness. - ENT Exam ENT Exam: Normal External Ear Exam - Neck Exam Neck Exam: Normal Inspection - Respiratory Exam Respiratory Exam: NORMAL BREATHING PATTERN - Cardiovascular Exam Cardiovascular Exam: absent: JVD - GI/Abdominal Exam GI & Abdominal Exam: absent: Distended - Rectal Exam Rectal Exam: Deferred - Extremities Exam Extremities Exam: Normal Inspection Additional comments: Deferred. - Back Exam Back Exam: NORMAL INSPECTION - Neurological Exam Neurological Exam: Alert, Awake - Psychiatric Exam Psychiatric exam: Agitated - Skin Skin Exam: Normal Color Assessment and Plan - Assessment and Plan (Free Text) Assessment: Elevated blood pressure reading. DVT. HTN. Left eye blindness. CAD. CHF. DM II. Plan: [id number] mg PO now. Continue present management.
[2016-11-30] MEDS: Albuterol-Ipratrop 3 mg / 0.5 (3 ml) UD IH SCH ×4 (01:45→19:42)
[2016-11-30] MEDS: Heparin 25,000units in D5W/250 ML BAG IV PRN ×3 (05:18→22:32)
[2016-11-30] MEDS: Nitroglycerin 2% Ointment Foilpak UD TOP SCH ×5 (05:20→20:55)
--- NOTE | 2016-11-30 06:54 | CP.PCM.PN ---
Subjective - Date & Time of Evaluation Date of Evaluation: 11/30/16 Time of Evaluation: 06:52 - Subjective Subjective: S: Patient was seen at bedside for blood pressure 174/102. Has no acute symptoms now. Denies headache, dizziness. ROS:Neg. Medical record was reviewed. O:174/102. Ambulating. Sitting on a chair now. LUNGS:Normal breathing pattern. A:Elevated blood pressure reading. P:Diovan 320 mg po now instead of at 10:00AM. Objective - Vital Signs/Intake and Output Vital Signs (last 24 hours): Temp Pulse Resp BP Pulse Ox 98.5 F 60 20 158/90 H 96 11/30/16 00:02 11/30/16 06:00 11/30/16 00:02 11/30/16 00:02 11/30/16 00:02 Intake and Output: 11/29/16 11/30/16 18:59 06:59 Intake Total 550 458 Output Total 740 Balance -190 458 - Medications Medications: Current Medications Albuterol/Ipratropium (Duoneb 3 Mg/0.5 Mg (3 Ml) Ud) 3 ml IH [id number] [facility] Last Admin: 11/30/16 01:45 Dose: 3 ml Aspirin (Ecotrin) 81 mg PO DAILY [facility] Last Admin: 11/29/16 09:18 Dose: 81 mg Atorvastatin Calcium (Lipitor) 40 mg PO DAILY [facility] Last Admin: 11/29/16 09:18 Dose: 40 mg Clopidogrel Bisulfate (Plavix) 75 mg PO DAILY [facility] Last Admin: 11/29/16 09:18 Dose: 75 mg Docusate Sodium (Colace) 100 mg PO TID [facility] Last Admin: 11/29/16 17:00 Dose: 100 mg Doxycycline Hyclate (Doryx) 100 mg PO Q12 [facility] PRN Reason: Protocol Last Admin: 11/29/16 21:06 Dose: 100 mg Furosemide (Lasix) 40 mg IVP DAILY [facility] Last Admin: 11/29/16 09:18 Dose: 40 mg Heparin Sodium/Dextrose (Heparin 25,000 Units/250ml In D5w) 25,000 units in 250 mls @ 17.388 mls/hr IV .[id number] PRN; Protocol PRN Reason: ADJUST RATE PER PROTOCOL Last Admin: 11/30/16 05:18 Dose: 17.4 mls/hr Insulin Human Regular (Humulin R Low) 0 units SC ACHS [facility] PRN Reason: Protocol Last Admin: 11/29/16 21:30 Dose: Not Given Metformin HCl (Glucophage) 500 mg PO DAILY [facility] Last Admin: 11/29/16 09:18 Dose: 500 mg Methylprednisolone (Solu-Medrol) 20 mg IVP Q12 [facility] Last Admin: 11/29/16 21:06 Dose: 20 mg Metoprolol Succinate (Toprol Xl) 25 mg PO DAILY [facility] Last Admin: 11/29/16 09:19 Dose: 25 mg Montelukast Sodium (Singulair) 10 mg PO DAILY [facility] Last Admin: 11/29/16 09:19 Dose: 10 mg Nitroglycerin (Nitro-Bid 2% Oint) 1 ea TOP Q4H [facility] Last Admin: 11/30/16 05:20 Dose: Not Given (Febuxostat [Uloric] (40 Mg)Home Med) 40 mg PO DAILY [facility] Last Admin: 11/29/16 12:11 Dose: 40 mg Tamsulosin HCl (Flomax) 0.4 mg PO DAILY [facility] Last Admin: 11/29/16 10:10 Dose: 0.4 mg Valsartan (Diovan) 320 mg PO DAILY [facility] Last Admin: 11/30/16 06:35 Dose: 320 mg - Labs Labs: 11/27/16 07:35 11/28/16 03:40 PT 11.5 Seconds (9.9-11.8) 11/26/16 17:39 INR 1.06 (0.93-1.08) 11/26/16 17:39 APTT 76.2 Seconds (23.7-30.8) H* 11/29/16 14:45
[2016-11-30] MEDS: Insulin Reg-LOW-Coverage SC SCH ×4 (08:12→21:41)
--- NOTE | 2016-11-30 08:47 | CP.PCM.PN ---
Subjective - Date & Time of Evaluation Date of Evaluation: 11/30/16 Time of Evaluation: 07:00 - Subjective Subjective: Stable on 2R now. No CP or SOB. Back and hip pains reported. More alert. 1:1 sitter. V/S noted. RSR PE: Lungs: few rhonchi Cor.: S1S2, systolic murmur Abd.: soft Ext.: mild edema Neuro.: alert Labs 11/29 noted: trop.=0.17, PTT today = 27.8 ECG 11/28: RSR, PVC's, IVCD, No acute changes. V/Q: low prob. Echo: Mild LVD, EF ~ 45 - 50 %, moderate inferior HK, moderate MR and TR, severe PH CT Head noted. Objective - Vital Signs/Intake and Output Vital Signs (last 24 hours): Temp Pulse Resp BP Pulse Ox 97.8 F 66 20 174/102 H 95 11/30/16 06:00 11/30/16 06:00 11/30/16 06:00 11/30/16 06:00 11/30/16 06:00 Intake and Output: 11/30/16 11/30/16 06:59 18:59 Intake Total 458 0 Balance 458 0 - Medications Medications: Current Medications Albuterol/Ipratropium (Duoneb 3 Mg/0.5 Mg (3 Ml) Ud) 3 ml IH [id number] [facility] Last Admin: 11/30/16 08:21 Dose: 3 ml Aspirin (Ecotrin) 81 mg PO DAILY [facility] Last Admin: 11/29/16 09:18 Dose: 81 mg Atorvastatin Calcium (Lipitor) 40 mg PO DAILY [facility] Last Admin: 11/29/16 09:18 Dose: 40 mg Clopidogrel Bisulfate (Plavix) 75 mg PO DAILY [facility] Last Admin: 11/29/16 09:18 Dose: 75 mg Docusate Sodium (Colace) 100 mg PO TID [facility] Last Admin: 11/29/16 17:00 Dose: 100 mg Doxycycline Hyclate (Doryx) 100 mg PO Q12 [facility] PRN Reason: Protocol Last Admin: 11/29/16 21:06 Dose: 100 mg Furosemide (Lasix) 40 mg IVP DAILY [facility] Last Admin: 11/29/16 09:18 Dose: 40 mg Heparin Sodium/Dextrose (Heparin 25,000 Units/250ml In D5w) 25,000 units in 250 mls @ 17.388 mls/hr IV .[id number] PRN; Protocol PRN Reason: ADJUST RATE PER PROTOCOL Last Titration: 11/30/16 07:33 Dose: 21.2 mls/hr Insulin Human Regular (Humulin R Low) 0 units SC ACHS [facility] PRN Reason: Protocol Last Admin: 11/30/16 08:12 Dose: 2 units Metformin HCl (Glucophage) 500 mg PO DAILY [facility] Last Admin: 11/29/16 09:18 Dose: 500 mg Methylprednisolone (Solu-Medrol) 20 mg IVP Q12 [facility] Last Admin: 11/29/16 21:06 Dose: 20 mg Metoprolol Succinate (Toprol Xl) 25 mg PO DAILY [facility] Last Admin: 11/29/16 09:19 Dose: 25 mg Montelukast Sodium (Singulair) 10 mg PO DAILY [facility] Last Admin: 11/29/16 09:19 Dose: 10 mg Nitroglycerin (Nitro-Bid 2% Oint) 1 ea TOP Q4H [facility] Last Admin: 11/30/16 05:20 Dose: Not Given (Febuxostat [Uloric] (40 Mg)Home Med) 40 mg PO DAILY [facility] Last Admin: 11/29/16 12:11 Dose: 40 mg Tamsulosin HCl (Flomax) 0.4 mg PO DAILY [facility] Last Admin: 11/29/16 10:10 Dose: 0.4 mg Valsartan (Diovan) 320 mg PO DAILY [facility] Last Admin: 11/30/16 06:35 Dose: 320 mg - Labs Labs: 11/27/16 07:35 11/28/16 03:40 PT 11.5 Seconds (9.9-11.8) 11/26/16 17:39 INR 1.06 (0.93-1.08) 11/26/16 17:39 APTT 27.8 Seconds (23.7-30.8) 11/30/16 06:30 Assessment and Plan - Assessment and Plan (Free Text) Assessment: Edema/Weakness Constipaption/YAA pain Chest Pain/+ trops/NSTEMI AMS/Confusion DVT Diabetes HBP CAD/triple vessel disease with RCA PCI 12/23. COPD CHF Smoker GERD Gout HLD Blind OS Echo: Moderate MR and TR with severe PH Plan: Pulm. tx., as per Dr. Porter. As per Dr. Sanders Continue cardiac meds: ASA, Plavix, IV Heparin, metoprolol, Lipitor, Diovan, IV Furosemide, nitrolpaste. Hold metformin in preparation for cardiac cath Wed. AM. Monitor: labs, I/O, sats., PTT's, neuro signs, BS's, etc. Will follow
[2016-11-30] MEDS: MethylPREDNISolone 40 mg Vial IVP SCH ×2 (09:56→21:32)
[2016-11-30] MEDS: Metoprolol Succinate 25 mg XL Tab PO SCH (09:56)
[2016-11-30 10:08] LABS: BLOOD UREA NITROGEN 24 mg/dL (7-21); CALCIUM 10.4 mg/dL (8.4-10.5); CARBON DIOXIDE 28 mmol/L (21-33); CHLORIDE 98 mmol/L (98-107); GFR AFRICAN-AMERICAN > 60; GLUCOSE,RANDOM 208 mg/dL (70-110); POTASSIUM 4.4 mmol/L (3.6-5.0); SODIUM 135 mmol/L (132-148)
--- NOTE | 2016-12-01 00:43 | PN ---
DATE: 11/30/2016 PULMONARY PROGRESS NOTE REFERRING PHYSICIAN: Dr. Sanders. SUBJECTIVE: He is lying in the bed under one-to-one supervision. Night was unremarkable. No headache. No rhinitis. Still has cough and sputum production. No chest pain, no nausea, no vomiting, no diarrhea. Decreased leg swelling. OBJECTIVE: GENERAL: In no acute distress. VITAL SIGNS: Temp is 98, heart rate is 68, respiratory rate is 18, blood pressure is 129/59, pulse ox is 95% on nasal cannula. HEENT: Moist mucous membranes. Crowded airway. Mallampati score is 4. NECK: Supple. No JVD. LUNGS: Scattered rhonchi and few wheezing. HEART: S1 and S2. ABDOMEN: Soft, nontender. No organomegaly. EXTREMITIES: Decreased edema. NEUROLOGIC: Awake, alert, follows simple commands. MEDICATIONS: He is on Uloric 40 mg daily, Colace 100 mg three times a day, Diovan 320 mg daily, doxycycline 100 mg twice a day, albuterol and Atrovent nebulizer q.6 hours, Ecotrin 81 mg daily, Flomax 0.4 mg daily, metformin 500 mg daily, IV heparin, Lasix 40 mg daily, Lipitor 40 mg daily, Plavix 75 mg daily, Singulair 10 mg daily, Solu-Medrol 20 mg IV q.12 hour, Toprol-XL 25 mg daily. LABORATORY DATA: Shows PTT today over 180 and heparin is being readjusted. Sodium 135, potassium 4.4, chloride 98, bicarbonate 28, BUN 24, creatinine 0.8, glucose is 208, calcium is 10.4. Troponin is 0.17 from yesterday. IMPRESSION AND PLAN: Deep venous thrombosis of the right lower extremity, chronic obstructive lung disease, myocardial infarction, heart failure, coronary artery disease, hypertension, diabetes, gastroesophageal reflux disease, may have sleep apnea syndrome, has a positive cardiac enzyme. On IV heparin, bronchodilators, antibiotics. Awaiting for cardiac catheterization. We will start Coumadin once cleared by cardiology after cardiac catheterization. He has also significant pulmonary hypertension. Thank you and we will follow with you. Krista Porter MD [facility] # [id number]
[2016-12-01] MEDS: Nitroglycerin 2% Ointment Foilpak UD TOP SCH ×7 (00:51→23:38)
[2016-12-01] MEDS: Albuterol-Ipratrop 3 mg / 0.5 (3 ml) UD IH SCH ×5 (01:35→23:54)
--- NOTE | 2016-12-01 04:03 | CP.PCM.PN ---
Subjective - Date & Time of Evaluation Date of Evaluation: 11/30/16 Time of Evaluation: 23:45 - Subjective Subjective: Patient was seen for heart burn.Later on he complained of hip pain. It was requested to change strength of Mylanta. Has no other complaints. No chest pain, sob , nausea, sweating, palpitation. Medical record was reviewed. 81 year old male was admitted with weakness and swelling of legs. PMH:CAD,HTN,CHF,DM II,COPD, Cardiac catheterization with Stent placement. Objective - Vital Signs/Intake and Output Vital Signs (last 24 hours): Temp Pulse Resp BP Pulse Ox 97.9 F 62 19 152/87 H 96 12/01/16 00:01 12/01/16 00:01 12/01/16 00:01 12/01/16 00:01 11/30/16 19:47 Intake and Output: 11/30/16 12/01/16 18:59 06:59 Intake Total 1147 313 Output Total 1350 Balance -203 313 - Medications Medications: Current Medications Al Hydrox/Mg Hydrox/Simethicone (Maalox Plus 30 Ml) 30 ml PO BID PRN PRN Reason: Indigestion / Heartburn Albuterol/Ipratropium (Duoneb 3 Mg/0.5 Mg (3 Ml) Ud) 3 ml IH [id number] [facility] Last Admin: 12/01/16 01:35 Dose: 3 ml Aspirin (Ecotrin) 81 mg PO DAILY [facility] Last Admin: 11/30/16 09:55 Dose: 81 mg Atorvastatin Calcium (Lipitor) 40 mg PO DAILY [facility] Last Admin: 11/30/16 09:55 Dose: 40 mg Clopidogrel Bisulfate (Plavix) 75 mg PO DAILY [facility] Last Admin: 11/30/16 09:56 Dose: 75 mg Docusate Sodium (Colace) 100 mg PO TID [facility] Last Admin: 11/30/16 18:08 Dose: 100 mg Doxycycline Hyclate (Doryx) 100 mg PO Q12 [facility] PRN Reason: Protocol Last Admin: 11/30/16 21:32 Dose: 100 mg Furosemide (Lasix) 40 mg IVP DAILY [facility] Last Admin: 11/30/16 09:55 Dose: 40 mg Heparin Sodium/Dextrose (Heparin 25,000 Units/250ml In D5w) 25,000 units in 250 mls @ 17.388 mls/hr IV .[id number] PRN; Protocol PRN Reason: ADJUST RATE PER PROTOCOL Last Admin: 11/30/16 22:32 Dose: 16.2 mls/hr Insulin Human Regular (Humulin R Low) 0 units SC ACHS [facility] PRN Reason: Protocol Last Admin: 11/30/16 21:41 Dose: Not Given Metformin HCl (Glucophage) 500 mg PO DAILY [facility] Last Admin: 11/29/16 09:18 Dose: 500 mg Methylprednisolone (Solu-Medrol) 20 mg IVP Q12 [facility] Last Admin: 11/30/16 21:32 Dose: 20 mg Metoprolol Succinate (Toprol Xl) 25 mg PO DAILY [facility] Last Admin: 11/30/16 09:56 Dose: 25 mg Montelukast Sodium (Singulair) 10 mg PO DAILY [facility] Last Admin: 11/30/16 09:56 Dose: 10 mg Nitroglycerin (Nitro-Bid 2% Oint) 1 ea TOP Q4H [facility] Last Admin: 12/01/16 00:51 Dose: 1 ea (Febuxostat [Uloric] (40 Mg)Home Med) 40 mg PO DAILY [facility] Last Admin: 11/30/16 09:55 Dose: 40 mg Tamsulosin HCl (Flomax) 0.4 mg PO DAILY [facility] Last Admin: 11/30/16 09:55 Dose: 0.4 mg Valsartan (Diovan) 320 mg PO DAILY [facility] Last Admin: 11/30/16 09:54 Dose: Not Given - Labs Labs: 11/27/16 07:35 11/30/16 06:30 PT 11.5 Seconds (9.9-11.8) 11/26/16 17:39 INR 1.06 (0.93-1.08) 11/26/16 17:39 APTT 92.7 Seconds (23.7-30.8) H* 11/30/16 21:46 - Constitutional Appears: Well, No Acute Distress - Head Exam Head Exam: ATRAUMATIC, NORMAL INSPECTION, NORMOCEPHALIC - Eye Exam Eye Exam: Normal appearance - ENT Exam ENT Exam: Normal External Ear Exam - Neck Exam Neck Exam: Normal Inspection - Respiratory Exam Respiratory Exam: NORMAL BREATHING PATTERN - Cardiovascular Exam Cardiovascular Exam: absent: Diastolic murmur - GI/Abdominal Exam GI & Abdominal Exam: absent: Distended - Rectal Exam Rectal Exam: Deferred - Exam Additional comments: Deferred. - Extremities Exam Extremities Exam: Normal Inspection - Back Exam Back Exam: NORMAL INSPECTION - Neurological Exam Neurological Exam: Alert, Oriented x3 - Psychiatric Exam Psychiatric exam: Normal Affect, Normal Mood - Skin Skin Exam: Normal Color Assessment and Plan - Assessment and Plan (Free Text) Assessment: Dypepsia/Heart burn. Hip pain. CAD. HTN. DM II CHF. COPD. Plan: Mylanta 30 CC PO BID prn. Tylenol 650 mg PO stat. Continue present management.
[2016-12-01 06:04] LABS: HEMATOCRIT 39.2 % (42.0-52.0); MEAN CELL VOLUME 93.8 fL (80.0-105.0); MEAN CORPUSCULAR HEMOGLOBIN 32.3 pg (25.0-35.0); MEAN CORPUSCULAR HGB CONC 34.4 g/dl (31.0-37.0); MEAN PLATELET VOLUME 10.8 fl (7.0-11.0); RED CELL DISTRIBUTION WIDTH 13.9 % (11.5-14.5); WHITE BLOOD COUNT 6.7 10^3/ul (4.5-11.0)
[2016-12-01 06:16] LABS: BLOOD UREA NITROGEN 26 mg/dL (7-21); CALCIUM 10.1 mg/dL (8.4-10.5); CARBON DIOXIDE 29 mmol/L (21-33); CHLORIDE 96 mmol/L (95-110); GFR AFRICAN-AMERICAN > 60; GLUCOSE,RANDOM 295 mg/dL (70-110); POTASSIUM 4.2 mmol/L (3.6-5.0); SODIUM 132 mmol/L (132-148)
[2016-12-01] MEDS: Heparin 25,000units in D5W/250 ML BAG IV PRN ×2 (07:38→12:59)
--- NOTE | 2016-12-01 08:35 | PN ---
DATE: SUBJECTIVE: The patient was seen and examined at the bedside in the late evening. His 2 daughters are sitting at the bedside. Length of time discussion done. All questions answered. The patient is going for catheterization tomorrow. Today, the patient has high blood pressure, was seen by Dr. Chinchilla, [place] physician, and given a dose of Diovan at 10 p.m. The patient was feeling burning sensation in the stomach, Maalox was given. Otherwise, the patient is more awake and alert. No nausea, vomiting, or diarrhea. No hematuria or hematochezia. No headache. No dizziness. Seen by the manager heart and stallion manager. PHYSICAL EXAMINATION: VITAL SIGNS: Temperature is 97.8, pulse 86, blood pressure 147/86, respiratory rate is 20. HEENT: Head is normocephalic and atraumatic. Eyes: PERRLA, extraocular muscles intact, conjunctivae clear. Nose patent. Mucous membranes moist. NECK: Supple. No carotid bruit. No JVD or thyromegaly. CHEST: Bilaterally symmetrical. HEART: S1 and S2 positive. LUNGS: Clear to auscultation. ABDOMEN: Soft. Bowel sounds positive. No organomegaly. EXTREMITIES: No edema. No cyanosis. NEUROLOGIC: The patient is awake, alert. Moving all four extremities. No focal deficit. MEDICATIONS: Uloric 40 mg, Colace, Diovan, doxycycline, DuoNeb, Ecotrin. LABORATORY DATA: White blood cells 8.1, hemoglobin 13.8, hematocrit 40.3, and platelets 146. Sodium 135, potassium 4.4, BUN 24, creatinine 0.8, and glucose 208. ASSESSMENT AND PLAN: The patient is a 81-year-old male with deep vein thrombosis of the right lower extremity with swelling and tenderness. He is on the heparin drip, carrying protocol, waiting for cardiac procedure, so that we can start some oral blood thinner and can make discharge planning. Chronic obstructive lung disease, myocardial infarction, heart failure, coronary artery disease, hypertension. Today, blood pressure was high, was seen by Dr. Cartwright as I said was given. Has gastroesophageal reflux disease, dyspepsia, Maalox was given. Sleep apnea syndrome. Cardiac enzymes are positive. Waiting for cardiology procedure to start Coumadin. Has cardiomyopathy, decreased left ventricular function, and is on high risk of pulmonary hypertension. getting tapering dose of Solu-Medrol. Discussion done with 2 of the daughters. GI and DVT prophylaxis. Repeat labs. We will follow up. Bessie Sanders MD [facility]
--- NOTE | 2016-12-01 08:37 | CP.PCM.PN ---
Subjective - Date & Time of Evaluation Date of Evaluation: 12/01/16 Time of Evaluation: 07:00 - Subjective Subjective: Stable on 2R now. No CP or SOB. "Heart burn" episode at 4 AM noted. Alert. 1:1 sitter. V/S noted. RSR PE: Lungs: few rhonchi Cor.: S1S2, systolic murmur Abd.: soft Ext.: mild edema Neuro.: alert Labs noted. PTT 101 today ECG 11/28: RSR, PVC's, IVCD, No acute changes. V/Q: low prob. Echo: Mild LVD, EF ~ 45 - 50 %, moderate inferior HK, moderate MR and TR, severe PH CT Head noted. Objective - Vital Signs/Intake and Output Vital Signs (last 24 hours): Temp Pulse Resp BP Pulse Ox 98.4 F 55 L 20 145/75 100 12/01/16 06:00 12/01/16 06:00 12/01/16 06:00 12/01/16 06:00 12/01/16 06:00 Intake and Output: 12/01/16 12/01/16 06:59 18:59 Intake Total 497 1680 Output Total 200 Balance 497 1480 - Medications Medications: Current Medications Al Hydrox/Mg Hydrox/Simethicone (Maalox Plus 30 Ml) 30 ml PO BID PRN PRN Reason: Indigestion / Heartburn Albuterol/Ipratropium (Duoneb 3 Mg/0.5 Mg (3 Ml) Ud) 3 ml IH [id number] [facility] Last Admin: 12/01/16 07:38 Dose: 3 ml Aspirin (Ecotrin) 81 mg PO DAILY [facility] Last Admin: 11/30/16 09:55 Dose: 81 mg Atorvastatin Calcium (Lipitor) 40 mg PO DAILY [facility] Last Admin: 11/30/16 09:55 Dose: 40 mg Clopidogrel Bisulfate (Plavix) 75 mg PO DAILY [facility] Last Admin: 11/30/16 09:56 Dose: 75 mg Docusate Sodium (Colace) 100 mg PO TID [facility] Last Admin: 11/30/16 18:08 Dose: 100 mg Doxycycline Hyclate (Doryx) 100 mg PO Q12 [facility] PRN Reason: Protocol Last Admin: 11/30/16 21:32 Dose: 100 mg Furosemide (Lasix) 40 mg IVP DAILY [facility] Last Admin: 11/30/16 09:55 Dose: 40 mg Heparin Sodium/Dextrose (Heparin 25,000 Units/250ml In D5w) 25,000 units in 250 mls @ 17.388 mls/hr IV .[id number] PRN; Protocol PRN Reason: ADJUST RATE PER PROTOCOL Last Admin: 12/01/16 07:38 Dose: 13.2 mls/hr Insulin Human Regular (Humulin R Low) 0 units SC ACHS [facility] PRN Reason: Protocol Last Admin: 11/30/16 21:41 Dose: Not Given Metformin HCl (Glucophage) 500 mg PO DAILY [facility] Last Admin: 11/29/16 09:18 Dose: 500 mg Methylprednisolone (Solu-Medrol) 20 mg IVP Q12 [facility] Last Admin: 11/30/16 21:32 Dose: 20 mg Metoprolol Succinate (Toprol Xl) 25 mg PO DAILY [facility] Last Admin: 11/30/16 09:56 Dose: 25 mg Montelukast Sodium (Singulair) 10 mg PO DAILY [facility] Last Admin: 11/30/16 09:56 Dose: 10 mg Nitroglycerin (Nitro-Bid 2% Oint) 1 ea TOP Q4H [facility] Last Admin: 12/01/16 04:53 Dose: 1 ea (Febuxostat [Uloric] (40 Mg)Home Med) 40 mg PO DAILY [facility] Last Admin: 11/30/16 09:55 Dose: 40 mg Tamsulosin HCl (Flomax) 0.4 mg PO DAILY [facility] Last Admin: 11/30/16 09:55 Dose: 0.4 mg Valsartan (Diovan) 320 mg PO DAILY [facility] Last Admin: 11/30/16 09:54 Dose: Not Given - Labs Labs: 12/01/16 05:45 12/01/16 05:45 PT 11.5 Seconds (9.9-11.8) 11/26/16 17:39 INR 1.06 (0.93-1.08) 11/26/16 17:39 APTT 101.0 Seconds (23.7-30.8) H* 12/01/16 05:45 Assessment and Plan - Assessment and Plan (Free Text) Assessment: Edema/Weakness "Heart Burn" Chest Pain/+ trops/NSTEMI AMS/Confusion DVT Diabetes HBP CAD/triple vessel disease with RCA PCI 12/23. COPD CHF Smoker GERD Gout HLD Blind OS Echo: Moderate MR and TR with severe PH Plan: Pulm. tx., as per Dr. Porter. As per Dr. Sanders Continue cardiac meds: ASA, Plavix, IV Heparin, metoprolol, Lipitor, Diovan, IV Furosemide, nitrolpaste. Hold metformin in preparation for cardiac cath Wed. AM. D/C heparin at 4 AM for cath ~ 7:30 AM. Monitor: labs, I/O, sats., PTT's, neuro signs, BS's, etc. Will follow
[2016-12-01] MEDS: Insulin Reg-LOW-Coverage SC SCH ×4 (08:55→21:22)
[2016-12-01] MEDS: Metoprolol Succinate 25 mg XL Tab PO SCH (11:49)
[2016-12-01] MEDS: MethylPREDNISolone 40 mg Vial IVP SCH ×2 (12:04→21:11)
--- NOTE | 2016-12-01 23:06 | CP.PCM.PN ---
Subjective - Date & Time of Evaluation Date of Evaluation: 12/01/16 Time of Evaluation: 08:00 - Subjective Subjective: Stable on 2R now. No CP or SOB. "Heart burn" episode at 4 AM noted. Alert. 1:[address] Carlin , house physician , cath tomarrow , cardio and pul. on the case , no n,v,d , no barry no dizzyness Objective - Vital Signs/Intake and Output Vital Signs (last 24 hours): Temp Pulse Resp BP Pulse Ox 97.7 F 62 20 119/79 100 12/01/16 17:13 12/01/16 22:00 12/01/16 17:13 12/01/16 17:13 12/01/16 08:31 Intake and Output: 12/01/16 12/02/16 18:59 06:59 Intake Total 3648 Output Total 4700 Balance -1052 - Medications Medications: Current Medications Al Hydrox/Mg Hydrox/Simethicone (Maalox Plus 30 Ml) 30 ml PO BID PRN PRN Reason: Indigestion / Heartburn Albuterol/Ipratropium (Duoneb 3 Mg/0.5 Mg (3 Ml) Ud) 3 ml IH [id number] [facility] Last Admin: 12/01/16 19:21 Dose: 3 ml Aspirin (Ecotrin) 81 mg PO DAILY [facility] Last Admin: 12/01/16 11:50 Dose: 81 mg Atorvastatin Calcium (Lipitor) 40 mg PO DAILY [facility] Last Admin: 12/01/16 15:41 Dose: 40 mg Clopidogrel Bisulfate (Plavix) 75 mg PO DAILY [facility] Last Admin: 12/01/16 11:50 Dose: 75 mg Docusate Sodium (Colace) 100 mg PO TID [facility] Last Admin: 12/01/16 15:39 Dose: 100 mg Doxycycline Hyclate (Doryx) 100 mg PO Q12 [facility] PRN Reason: Protocol Last Admin: 12/01/16 21:11 Dose: 100 mg Furosemide (Lasix) 40 mg IVP DAILY [facility] Last Admin: 12/01/16 12:04 Dose: 40 mg Heparin Sodium/Dextrose (Heparin 25,000 Units/250ml In D5w) 25,000 units in 250 mls @ 17.388 mls/hr IV .[id number] PRN; Protocol PRN Reason: ADJUST RATE PER PROTOCOL Last Admin: 12/01/16 12:59 Dose: 13.2 mls/hr Insulin Human Regular (Humulin R Low) 0 units SC ACHS [facility] PRN Reason: Protocol Last Admin: 12/01/16 21:22 Dose: Not Given Metformin HCl (Glucophage) 500 mg PO DAILY [facility] Last Admin: 11/29/16 09:18 Dose: 500 mg Methylprednisolone (Solu-Medrol) 20 mg IVP Q12 [facility] Last Admin: 12/01/16 21:11 Dose: 20 mg Metoprolol Succinate (Toprol Xl) 25 mg PO DAILY [facility] Last Admin: 12/01/16 11:49 Dose: 25 mg Montelukast Sodium (Singulair) 10 mg PO DAILY [facility] Last Admin: 12/01/16 11:50 Dose: 10 mg Nitroglycerin (Nitro-Bid 2% Oint) 1 ea TOP Q4H [facility] Last Admin: 12/01/16 19:42 Dose: 1 ea (Febuxostat [Uloric] (40 Mg)Home Med) 40 mg PO DAILY [facility] Last Admin: 12/01/16 11:51 Dose: 40 mg Tamsulosin HCl (Flomax) 0.4 mg PO DAILY [facility] Last Admin: 12/01/16 11:47 Dose: 0.4 mg Valsartan (Diovan) 320 mg PO DAILY [facility] Last Admin: 12/01/16 11:50 Dose: 320 mg - Labs Labs: 12/01/16 05:45 12/01/16 05:45 PT 11.5 Seconds (9.9-11.8) 11/26/16 17:39 INR 1.06 (0.93-1.08) 11/26/16 17:39 APTT 57.9 Seconds (23.7-30.8) H 12/01/16 20:16 - Constitutional Appears: Well - Head Exam Head Exam: ATRAUMATIC, NORMAL INSPECTION, NORMOCEPHALIC - Eye Exam Eye Exam: EOMI, Normal appearance, PERRL Pupil Exam: NORMAL ACCOMODATION, PERRL - ENT Exam ENT Exam: Mucous Membranes Moist, Normal Exam - Neck Exam Neck Exam: Full ROM, Normal Inspection. absent: Lymphadenopathy - Respiratory Exam Respiratory Exam: Clear to Ausculation Bilateral, NORMAL BREATHING PATTERN - Cardiovascular Exam Cardiovascular Exam: REGULAR RHYTHM, +S1, +S2. absent: Murmur - GI/Abdominal Exam GI & Abdominal Exam: Soft, Normal Bowel Sounds. absent: Tenderness - Rectal Exam Rectal Exam: NORMAL INSPECTION - Exam Exam: Circumcision, NORMAL INSPECTION External exam: NORMAL EXTERNAL EXAM Speculum exam: NORMAL SPECULUM EXAM Bimanual exam: NORMAL BIMANUAL EXAM - Extremities Exam Extremities Exam: Full ROM, Normal Capillary Refill, Normal Inspection. absent : Joint Swelling, Pedal Edema - Back Exam Back Exam: NORMAL INSPECTION - Neurological Exam Neurological Exam: Alert, Awake, CN II-XII Intact, Normal Gait, Oriented x3 - Psychiatric Exam Psychiatric exam: Normal Affect, Normal Mood - Skin Skin Exam: Dry, Intact, Normal Color, Warm Assessment and Plan (1) COPD (chronic obstructive pulmonary disease) Status: Acute (2) DVT (deep venous thrombosis) Status: Acute (3) Leg edema Status: Acute (4) Alcohol abuse Status: Acute (5) Asthma Status: Acute (6) COPD with acute exacerbation Status: Acute (7) Cough with hemoptysis Status: Acute (8) Elevated brain natriuretic peptide (BNP) level Status: Acute (9) Flu Status: Acute (10) Frequent PVCs Status: Acute (11) Hypokalemia Status: Acute (12) Hypomagnesemia Status: Acute (13) Influenza A Status: Acute (14) Pneumonia Status: Acute (15) Prophylactic measure Status: Acute (16) Shoulder pain, left Status: Acute (17) Tobacco abuse Status: Acute (18) CAD (coronary artery disease) Status: Chronic (19) Diabetes Status: Chronic (20) Hypertension Status: Chronic - Assessment and Plan (Free Text) Assessment: Edema/Weakness "Heart Burn" Chest Pain/+ trops/NSTEMI AMS/Confusion DVT Diabetes HBP CAD/triple vessel disease with RCA PCI 12/23. COPD CHF Smoker GERD Gout HLD Blind OS Echo: Moderate MR and TR with severe PH Plan,d/d with dr Porter Continue cardiac meds: ASA, Plavix, IV Heparin, metoprolol, Lipitor, Diovan, IV Furosemide, nitrolpaste. Hold metformin in preparation for cardiac cath Wed. AM. D/C heparin at 4 AM for cath ~ 7:30 AM. Monitor: labs, I/O, sats., PTT's, neuro signs, BS's, etc. Will follow
--- NOTE | 2016-12-02 05:24 | PN ---
DATE: 12/01/2016 REFERRING PHYSICIAN: Dr. Sanders. SUBJECTIVE: He is lying in the bed, head at 45 degrees. Still have mild cough and shortness of breath. No chest pain. No nausea and no vomiting. No diarrhea. Decreased leg swelling. OBJECTIVE: GENERAL: No acute distress. VITAL SIGNS: Temperature is 98, heart rate 70, respiratory rate is 20, blood pressure 119/79, pulse ox 100% on room air. HEENT: Moist mucous membranes. Crowded airway. NECK: Supple. No JVD. LUNGS: Has few scattered rhonchi. HEART: S1 and S2. ABDOMEN: Soft and nontender. No organomegaly. EXTREMITIES: Trace edema of the right leg, has a JOSEFINA stocking. NEUROLOGICAL: Awake, alert, follows simple commands. LABORATORY DATA: Shows hemoglobin 13.5, hematocrit 39.2, WBC 6.7, platelet is 185. PTT is 58. Sodium 132, potassium 4.2, chloride 96, bicarbonate 29, BUN 26, creatinine 0.8, glucose 295, calcium is 10.1. MEDICATIONS: He is on Uloric 40 mg daily, Colace 100 mg three times a day, Diovan 320 mg daily, doxycycline 100 mg twice a day, DuoNeb q.6 hours, Ecotrin 81 mg daily, Flomax 0.4 mg daily, metformin 500 mg daily, heparin weight-based protocol, insulin coverage, Lasix 40 mg IV daily, Lipitor 40 mg daily, MiraLax p.r.n. basis, Nitro-Bid q. 4 hours, Plavix 75 mg daily, Singulair 10 mg daily, Solu-Medrol 20 mg q. 12 hours, and Toprol-XL 25 mg daily. IMPRESSION AND PLAN: Deep venous thrombosis on the right lower extremity, chronic obstructive lung disease, myocardial infarction, heart failure, coronary artery disease, hypertension, diabetes, gastroesophageal reflux disease, and sleep apnea syndrome, scheduled for cardiac catheterization tomorrow. Sleep apnea precaution, is sedated, needs close cardiopulmonary monitoring. Continue IV and inhaled bronchodilator. Continue heparin, may hold before catheterization in the morning. Thank you and we will follow with you. Krista Porter MD [facility] # [id number]
[2016-12-02] MEDS: Albuterol-Ipratrop 3 mg / 0.5 (3 ml) UD IH SCH ×4 (06:08→19:31)
[2016-12-02] MEDS: Metoprolol Succinate 25 mg XL Tab PO SCH ×2 (06:39→10:38)
[2016-12-02] MEDS ORDERED: Lidocaine 2% Inj (20ml) ONE (06:46)
[2016-12-02] MEDS ORDERED: Iohexol 350mgl/ml 50 ML ONE (06:47)
[2016-12-02] MEDS: Insulin Reg-LOW-Coverage SC SCH ×4 (07:30→22:30)
[2016-12-02] MEDS ORDERED: Midazolam 2 MG/2 ML VIAL ONE (08:06)
[2016-12-02] MEDS ORDERED: Sodium Chloride 0.9% 1,000 ML IV SCH (08:30)
[2016-12-02] MEDS: MethylPREDNISolone 40 mg Vial IVP SCH ×3 (11:22→22:30)
--- NOTE | 2016-12-02 14:23 | CARDCATH ---
PROCEDURE DATE: 12/02/2016 HISTORY: This is a 81-year-old man with known coronary artery disease, status post prior PCI of his RCA, admitted with increasing dyspnea and elevated troponin. Cardiac catheterization was recommended. INDICATION: As above. FINDINGS: HEMODYNAMICS: The aortic pressure was 136/70 with left ventricular pressure of 136/12. CORONARY ANATOMY: 1. The left main stem was large and normal. 2. The left anterior descending artery had mild calcification present proximally and a 50% tubular lesion in its early mid portion. Mild diffuse irregularities are noted distally. A small second diagonal branch had 90% ostial stenosis. 3. The left circumflex artery gave rise to one large obtuse marginal branch which had multiple 40% lesions present. The proximal circumflex also had a 40% stenosis. The coronary circulation was co-dominant. The left posterior descending artery had mild irregularities. 4. The right coronary artery was co-dominant and gave rise to a small right PDA and right posterolateral branch. The previously placed stents in the early mid portion of the vessel were widely patent. There was a 50% stenosis noted prior to the stents in the early proximal segment of the vessel as well as 40% lesion in the early distal segment of the vessel. LEFT VENTRICULOGRAPHY: A left ventriculogram was performed with hand injection only in the PRAKASH projection. This revealed relatively normal wall motion with an ejection fraction of 55%. There was no aortic valve gradient noted on catheter pullback. Mitral regurgitation was not assessed. RIGHT FEMORAL ARTERIOGRAPHY: A right femoral arteriogram was performed in the PRAKASH projection revealing no evidence of significant disease. The puncture site appeared to be at the origin of the proximal SFA. The puncture site was then closed with deployment of a Mynx device. CONCLUSION: 1. Patent RCA stents. 2. Moderate LAD, proximal RCA and circumflex disease. 3. Normal LV systolic function. RECOMMENDATIONS: At this time, continue medical therapy as advised. Risk factor control is advised as well. Manolo Haile MD cc: Rodolfo Duron MD
--- NOTE | 2016-12-02 16:43 | PN ---
DATE: 12/02/2016 REFERRING PHYSICIAN: Bessie Bolden MD SUBJECTIVE: He is lying in the bed, status post cardiac cath, which was unremarkable under supervision. Still have a mild cough and no shortness of breath, no chest pain, no nausea, no vomiting. No diarrhea. Decreased leg swelling. PHYSICAL EXAMINATION: GENERAL: No acute distress. VITAL SIGNS: Temperature is 98, heart rate 50, respiratory rate is 18, blood pressure 146/76 and pulse ox 100% nasal cannula. HEENT: Moist mucous membranes. Carotid airway. Mallampati score is 4. NECK: Supple. No JVD. LUNGS: Has few scattered rhonchi. HEART: S1 and S2. ABDOMEN: Soft and nontender. No organomegaly. EXTREMITIES: There is no edema. NEUROLOGIC: Awake, alert, follows simple command. MEDICATIONS: He is on Uloric 40 mg daily, Colace 100 mg three times a day, Diovan 320 mg daily, Doxycycline 100 mg twice a day, albuterol and Atrovent nebulizer q 6 hours, Ecotrin 81 mg daily, Flomax 0.4 mg daily, metformin 500 mg daily, insulin coverage, Lasix 20 mg daily, Lipitor 40 mg daily, Maalox p.r.n. basis, Plavix 75 mg daily, Singulair 10 mg daily, IV fluid normal saline 100 mL per hour, Solu-Medrol 20 mg q.12 hours, and Toprol-XL 20 mg daily. LABORATORY DATA: Laboratories that are reviewed. INR today was 27, blood sugar was 168, review microbiology, urine culture there is no growth. Cardiac cath was done that report final is still pending. IMPRESSION AND PLAN: Deep venous thrombosis, anticoagulation, obstructive lung disease status post myocardial infarction, heart failure, coronary artery disease, hypertension, diabetes, gastroesophageal reflux disease, may have sleep apnea syndrome, status post cardiac catheterization report is still pending, but according to nurses continue medical management. Discharge planing for tomorrow, taper dose steroid and antibiotics, outpatient PFT and attended yesterday. May need to transfer to to switch to Coumadin anticoagulation. Krista Porter MD [facility] # [id number]
--- NOTE | 2016-12-02 21:16 | PN ---
DATE: 12/02/2016 SUBJECTIVE: The patient was seen lying in bed, on telemetry. He underwent cardiac catheterization earlier today. He was found to have patent RCA stents with moderate proximal RCA and LAD disease. Medical therapy was advised. His mental status appears improved today. CURRENT MEDICATIONS: Include Uloric, Divan, doxycycline, DuoNeb inhaler, Ecotrin, Flomax, Glucophage which has been on hold, insulin coverage, Lasix 40 mg daily, Lipitor 40 mg daily, Plavix 75 mg daily, Singulair, Solu-Medrol, Toprol XL 25 mg daily. OBJECTIVE GENERAL: He is a overweight elderly man. VITAL SIGNS: His blood pressure is 138/82, pulse is 60 and sinus, respirations are 14. He is currently afebrile. Telemetry monitoring reveals frequent PVCs. HEENT: No JVD. CHEST: Bilateral scattered rhonchi. HEART: PMI displaced laterally with systolic murmur at the left sternal border. ABDOMEN: Soft, obese, nontender, normoactive bowel sounds. EXTREMITIES: No edema. DIAGNOSTIC DATA: Morning blood work is pending. IMPRESSION: 1. Coronary artery disease status post catheterization earlier today revealing patent right coronary artery stents with moderate diffuse disease. 2. Recent chest pain with borderline troponin, likely not due to true myocardial infarction. 3. Altered mental status, appears improved. 4. Severe chronic obstructive pulmonary disease. 5. Chronic obesity. 6. Moderate mitral and tricuspid regurgitation. RECOMMENDATIONS: His current cardiac medications will be continued. Topical nitrates have been discontinued. Close monitoring of his renal function and also observation potential for gout flare up following dye exposure will be planned. Weight loss was encouraged. We will continue to follow and make further recommendations as appropriate. Manolo Haile MD
[2016-12-03] MEDS: Albuterol-Ipratrop 3 mg / 0.5 (3 ml) UD IH SCH ×4 (01:12→19:37)
--- NOTE | 2016-12-03 03:50 | PN ---
SUBJECTIVE: The patient was seen and examined the bedside status post catheterization, getting episodes of confusion, still on one-to-one. No nausea, vomiting, diarrhea. No hematuria, hematochezia. No headache. No dizziness. No chest pain. No palpation. PHYSICAL EXAMINATION: VITAL SIGNS: Temperature is 98, heart rate 50, respiratory rate is 18, blood pressure 146/76 and pulse ox 100% on nasal cannula. HEENT: Head is normocephalic and atraumatic. Eyes, PERRLA. Extraocular muscles intact. Conjunctivae clear. Nose patent. Mucous membranes moist. NECK: Supple. No carotid bruit. No JVD or thyromegaly. CHEST: Bilaterally symmetrical. HEART: S1 and S2 positive. LUNGS: Clear to auscultation. ABDOMEN: Soft. Bowel sounds positive. No organomegaly. EXTREMITIES: No edema. No cyanosis. NEUROLOGIC: The patient is awake and alert. Moving all four extremities. No focal deficits. MEDICATION: Uloric, Colace, Diovan, doxycycline, Albuterol, Nebulizer, Ecotrin, Flomax, Metformin, insulin, Lasix, Lipitor, Maalox, Plavix, Singulair, IV fluid, Solu-Medrol, and Toprol. LABORATORY DATA: Blood sugar is 158. ASSESSMENT AND PLAN: Mr. Osmel Urbina is a 81-year-old male with multiple medical problems and deep vein thrombosis. He is on heparin drip. He was waiting for catheterization. Once catheterization is done, we will change him to Coumadin, need bridging, mainly we will take him to TCU for that. Obstructive lung disease, myocardial infarction, congestive heart failure, coronary artery disease, hypertension, diabetes mellitus, gastroesophageal reflux disease, sleep apnea syndrome, status post cardiac catheterization. According to Dr. Haile medical treatment. Gouty arthritis, may be patient has dementia, getting episodes of altered mental status. According to Dr. Haile, the patient has patent RCA stent with moderate proximal RCA and LAD disease. Medical therapy was advised. Chronic obstructive pulmonary disease, obesity, moderate mitral and tricuspid regurgitation. According to rodent control worker, continue current medical treatment. Topical nitrates have been discontinued by Dr. Haile. Close monitoring of renal function test and repeat labs. We will follow up. Bessie Sanders MD [facility] # [id number] CLAUS
[2016-12-03 07:02] LABS: HEMATOCRIT 43.6 % (42.0-52.0); MEAN CELL VOLUME 94.8 fL (80.0-105.0); MEAN CORPUSCULAR HEMOGLOBIN 32.4 pg (25.0-35.0); MEAN CORPUSCULAR HGB CONC 34.2 g/dl (31.0-37.0); MEAN PLATELET VOLUME 10.9 fl (7.0-11.0); RED CELL DISTRIBUTION WIDTH 14.2 % (11.5-14.5); WHITE BLOOD COUNT 6.8 10^3/ul (4.5-11.0)
[2016-12-03 07:20] LABS: BLOOD UREA NITROGEN 28 mg/dL (7-21); CALCIUM 10.4 mg/dL (8.4-10.5); CARBON DIOXIDE 32 mmol/L (21-33); CHLORIDE 98 mmol/L (98-107); GFR AFRICAN-AMERICAN > 60; GLUCOSE,RANDOM 193 mg/dL (70-110); POTASSIUM 4.5 mmol/L (3.6-5.0); SODIUM 137 mmol/L (132-148)
--- NOTE | 2016-12-03 08:05 | CP.PCM.PN ---
Subjective - Date & Time of Evaluation Date of Evaluation: 12/03/16 Time of Evaluation: 07:00 - Subjective Subjective: Stable on 2R. No CP or SOB. S/P cath yesterday. Report noted. V/S noted. RSR PE: Lungs: few rhonchi Cor.: S1S2, systolic murmur Abd.: soft Ext.: mild edema. Groin OK Neuro.: alert Labs noted. K+= 4.5, Cr.= 0.8, CBC OK ECG 11/28: RSR, PVC's, IVCD, No acute changes. V/Q: low prob. Echo: Mild LVD, EF ~ 45 - 50 %, moderate inferior HK, moderate MR and TR, severe PH CT Head noted. Cath noted: Patent RCA sents, Moderate 3 vessel Disease. Nl LV fx.. Medical Therapy advised Objective - Vital Signs/Intake and Output Vital Signs (last 24 hours): Temp Pulse Resp BP Pulse Ox 97.7 F 54 L 19 128/86 95 12/03/16 06:00 12/03/16 06:00 12/03/16 06:00 12/03/16 06:00 12/03/16 06:00 Intake and Output: 12/03/16 12/03/16 06:59 18:59 Intake Total 200 Balance 200 - Medications Medications: Current Medications Al Hydrox/Mg Hydrox/Simethicone (Maalox Plus 30 Ml) 30 ml PO BID PRN PRN Reason: Indigestion / Heartburn Albuterol/Ipratropium (Duoneb 3 Mg/0.5 Mg (3 Ml) Ud) 3 ml IH [id number] [facility] Last Admin: 12/03/16 01:12 Dose: Not Given Aspirin (Ecotrin) 81 mg PO DAILY [facility] Last Admin: 12/02/16 10:40 Dose: Not Given Atorvastatin Calcium (Lipitor) 40 mg PO DAILY [facility] Last Admin: 12/02/16 11:23 Dose: 40 mg Clopidogrel Bisulfate (Plavix) 75 mg PO DAILY [facility] Last Admin: 12/02/16 10:39 Dose: Not Given Docusate Sodium (Colace) 100 mg PO TID [facility] Last Admin: 12/02/16 17:08 Dose: 100 mg Doxycycline Hyclate (Doryx) 100 mg PO Q12 [facility] PRN Reason: Protocol Last Admin: 12/02/16 21:47 Dose: 100 mg Furosemide (Lasix) 40 mg IVP DAILY [facility] Last Admin: 12/02/16 11:24 Dose: 40 mg Insulin Human Regular (Humulin R Low) 0 units SC ACHS [facility] PRN Reason: Protocol Last Admin: 12/02/16 22:30 Dose: Not Given Metformin HCl (Glucophage) 500 mg PO DAILY [facility] Last Admin: 11/29/16 09:18 Dose: 500 mg Methylprednisolone (Solu-Medrol) 10 mg IVP Q12 [facility] Last Admin: 12/02/16 22:30 Dose: Not Given Metoprolol Succinate (Toprol Xl) 25 mg PO DAILY [facility] Last Admin: 12/02/16 10:38 Dose: Not Given Montelukast Sodium (Singulair) 10 mg PO DAILY [facility] Last Admin: 12/02/16 11:23 Dose: 10 mg (Febuxostat [Uloric] (40 Mg)Home Med) 40 mg PO DAILY [facility] Last Admin: 12/02/16 12:36 Dose: Not Given Tamsulosin HCl (Flomax) 0.4 mg PO DAILY [facility] Last Admin: 12/02/16 11:24 Dose: 0.4 mg Valsartan (Diovan) 320 mg PO DAILY [facility] Last Admin: 12/02/16 11:24 Dose: 320 mg Warfarin Sodium (Coumadin) 5 mg PO 1800 [facility] PRN Reason: Protocol - Labs Labs: 12/03/16 06:30 12/03/16 06:30 PT 11.5 Seconds (9.9-11.8) 11/26/16 17:39 INR 1.06 (0.93-1.08) 11/26/16 17:39 APTT 27.1 Seconds (23.7-30.8) 12/02/16 06:15 Assessment and Plan - Assessment and Plan (Free Text) Assessment: Edema/Weakness "Heart Burn" Chest Pain/+ trops/NSTEMI AMS/Confusion DVT Diabetes HBP CAD/triple vessel disease with RCA PCI 12/23. COPD CHF Smoker GERD Gout HLD Blind OS Echo: Moderate MR and TR with severe PH Plan: Pulm. tx., as per Dr. Porter. As per Dr. Sanders Continue cardiac meds: ASA, metoprolol, Lipitor, Diovan, Lasix. Hold metformin until tomorrow. Since he will be on warfarin for DVT, I will D/C Plavix at this time (11 months since RCA stents). Consider Lovenox to bridge to therapeutic warfarin. Close out-pt F/U for INR's/warfarin therapy. Cardiology F/U with Dr. Haile in 2 weeks.
[2016-12-03] MEDS: Insulin Reg-LOW-Coverage SC SCH ×5 (08:31→22:00)
[2016-12-03] MEDS: MethylPREDNISolone 40 mg Vial IVP SCH ×2 (09:43→22:03)
[2016-12-03] MEDS: Metoprolol Succinate 25 mg XL Tab PO SCH (09:46)
[2016-12-03] MEDS: Alum-Mag Hydrox-Simethicone Susp (30 mL) PO PRN (12:17)
--- NOTE | 2016-12-03 12:35 | CP.PCM.CON ---
<Raghavendra Wetzel - Last Filed: 12/03/16 12:55> History of Present Illness - History of Present Illness History of Present Illness: PGY-[address] Perez's Neurology Service: Reason for consult: AMS This is a 81 year old male with PMHx HTN, CAD s/p PCI, COPD, DM, CHF who presented to the hospital with complaints of weakness, groin pain, b/l leg edema. Patient recently discharged from a hospital in [place] where he had similar complaints. Patient is known to be non-compliant with medications. At time of encounter, patient was not in a confusional or agitated state. Per nurse, patient intermittently walks around and complains of wanting to leave the hospital. Patient states that he is well and denies fevers, chills, headaches, weakness, dizziness, paresthesias, CP, SOB, abdominal pain. PMHx: HTN, CAD s/p PCI, COPD, DM, CHF PSHx: PCI, left eye prosthesis implantation Allergies: PCN Social:Current smoker. Denies alcohol, drugs Review of Systems - Constitutional Constitutional: absent: Chills, Fever, Headache, Weakness - EENT Eyes: Other (left eye blind s/p prosthesis) Ears: absent: Decreased Hearing - Cardiovascular Cardiovascular: absent: Chest Pain - Respiratory Respiratory: absent: Dyspnea - Gastrointestinal Gastrointestinal: absent: Abdominal Pain, Nausea, Vomiting - Genitourinary Genitourinary: absent: Dysuria - Neurological Neurological: absent: Dizziness, Numbness, Headaches, Tingling, Weakness - Endocrine Endocrine: absent: Palpitations Past Patient History - Infectious Disease Hx of Infectious Diseases: None - Tetanus Immunizations Tetanus Immunization: Unknown - Past Medical History & Family History Past Medical History?: Yes - Past Social History Smoking Status: Light Smoker < 10 Cigarettes Daily - CARDIAC Hx Pacemaker: No - PULMONARY Hx Chronic Obstructive Pulmonary Disease (COPD): Yes - NEUROLOGICAL Hx Paralysis: No - HEENT Hx HEENT Problems: Yes 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) - RENAL Hx Chronic Kidney Disease: No - ENDOCRINE/METABOLIC Hx Diabetes Mellitus Type 2: Yes - HEMATOLOGICAL/ONCOLOGICAL Hx Blood Transfusions: No Hx Blood Transfusion Reaction: No - INTEGUMENTARY Hx Dermatological Problems: No - MUSCULOSKELETAL/RHEUMATOLOGICAL Hx Musculoskeletal Disorders: No - GASTROINTESTINAL Hx Gastrointestinal Disorders: Yes (CONSTIPATION) - GENITOURINARY/GYNECOLOGICAL Hx Genitourinary Disorders: No - PSYCHIATRIC Hx Emotional Abuse: No Hx Physical Abuse: No Hx Substance Use: No - SURGICAL HISTORY Hx Cardiac Catheterization: Yes (2005, 2012) Other/Comment: CARDIAC CATH, WITH 1 STENT - ANESTHESIA Hx Anesthesia Reactions: No Hx Malignant Hyperthermia: No Meds Allergies/Adverse Reactions: Allergies Allergy/AdvReac Type Severity Reaction Status Date / Time Penicillins Allergy RASH Verified 11/25/16 11:04 - Medications Medications: Current Medications Al Hydrox/Mg Hydrox/Simethicone (Maalox Plus 30 Ml) 30 ml PO BID PRN PRN Reason: Indigestion / Heartburn Last Admin: 12/03/16 12:17 Dose: 30 ml Albuterol/Ipratropium (Duoneb 3 Mg/0.5 Mg (3 Ml) Ud) 3 ml IH [id number] [facility] Last Admin: 12/03/16 07:58 Dose: 3 ml Aspirin (Ecotrin) 81 mg PO DAILY [facility] Last Admin: 12/03/16 09:43 Dose: 81 mg Atorvastatin Calcium (Lipitor) 40 mg PO DAILY [facility] Last Admin: 12/03/16 09:42 Dose: 40 mg Docusate Sodium (Colace) 100 mg PO TID [facility] Last Admin: 12/03/16 09:42 Dose: 100 mg Doxycycline Hyclate (Doryx) 100 mg PO Q12 [facility] PRN Reason: Protocol Last Admin: 12/03/16 09:42 Dose: 100 mg Furosemide (Lasix) 40 mg PO DAILY [facility] Last Admin: 12/03/16 09:46 Dose: 40 mg Insulin Human Regular (Humulin R Low) 0 units SC ACHS [facility] PRN Reason: Protocol Last Admin: 12/03/16 12:17 Dose: Not Given Metformin HCl (Glucophage) 500 mg PO DAILY [facility] Last Admin: 11/29/16 09:18 Dose: 500 mg Methylprednisolone (Solu-Medrol) 10 mg IVP Q12 [facility] Last Admin: 12/03/16 09:43 Dose: 10 mg Metoprolol Succinate (Toprol Xl) 25 mg PO DAILY [facility] Last Admin: 12/03/16 09:46 Dose: 25 mg Montelukast Sodium (Singulair) 10 mg PO DAILY [facility] Last Admin: 12/03/16 09:42 Dose: 10 mg (Febuxostat [Uloric] (40 Mg)Home Med) 40 mg PO DAILY [facility] Last Admin: 12/03/16 09:45 Dose: 40 mg Tamsulosin HCl (Flomax) 0.4 mg PO DAILY [facility] Last Admin: 12/03/16 09:42 Dose: 0.4 mg Valsartan (Diovan) 320 mg PO DAILY [facility] Last Admin: 12/03/16 09:46 Dose: 320 mg Warfarin Sodium (Coumadin) 5 mg PO 1800 [facility] PRN Reason: Protocol Physical Exam - Constitutional Appears: No Acute Distress - Head Exam Head Exam: ATRAUMATIC, NORMAL INSPECTION, NORMOCEPHALIC - Eye Exam Eye Exam: EOMI (Right intact. left eye prosthesis), PERRL (Right intact. Left eye prosthesis) - Respiratory Exam Respiratory Exam: Clear to Auscultation Bilateral - Cardiovascular Exam Cardiovascular Exam: REGULAR RHYTHM - GI/Abdominal Exam GI & Abdominal Exam: Normal Bowel Sounds - Neurological Exam Neurological exam: Alert, CN II-XII Intact, Oriented x3 Additional comments: Patient awake, alert, oriented to person, place, and time. Manual muscle testing 5/5 bilateral upper and lower extremities. No pronator drift. Normal finger to nose test. Reflexes 1/4 bilateral upper and lower extremities. Results - Vital Signs Recent Vital Signs: Last Vital Signs Temp 97.7 F 12/03/16 06:00 Pulse 60 12/03/16 09:46 Resp 19 12/03/16 06:00 BP 133/57 L 12/03/16 09:46 Pulse Ox 95 12/03/16 06:00 - Labs Result Diagrams: 12/03/16 06:30 12/03/16 06:30 Labs: Laboratory Results - last 24 hr 12/03/16 12/03/16 06:30 06:30 WBC 6.8 RBC 4.60 Hgb 14.9 Hct 43.6 MCV 94.8 MCH 32.4 MCHC 34.2 RDW 14.2 Plt Count 188 MPV 10.9 Sodium 137 Potassium 4.5 Chloride 98 Carbon Dioxide 32 Anion Gap 12 BUN 28 H Creatinine 0.8 Est GFR ( Amer) > 60 Est GFR (Non-Af Amer) > 60 Random Glucose 193 H Calcium 10.4 Assessment & Plan - Assessment and Plan (Free Text) Assessment: This is a 81 year old male with PMHx HTN, CAD s/p PCI, COPD, DM, CHF who presented to the hospital with complaints of weakness, groin pain, b/l leg edema. Patient has episodes transient confusional state due to delirium secondary to medical status and dehydration. Patient was not confused or agitated at time of encounter. Plan: 1) Delirium precautions 2) Maintain adequate hydration. 3) Avoid night-time interruptions. 4) PT evaluation and treatment. 5) Psychiatric assessment if behavior becomes agitated Patient is neurologically stable. Thank you. Case discussed with Dr. Ana Wetzel, PGY-1 - Date & Time Date: 12/03/16 Time: 09:15 <Bret Perez - Last Filed: 12/03/16 14:00> Meds - Medications Medications: Current Medications Al Hydrox/Mg Hydrox/Simethicone (Maalox Plus 30 Ml) 30 ml PO BID PRN PRN Reason: Indigestion / Heartburn Last Admin: 12/03/16 12:17 Dose: 30 ml Albuterol/Ipratropium (Duoneb 3 Mg/0.5 Mg (3 Ml) Ud) 3 ml IH [id number] [facility] Last Admin: 12/03/16 13:09 Dose: 3 ml Aspirin (Ecotrin) 81 mg PO DAILY [facility] Last Admin: 12/03/16 09:43 Dose: 81 mg Atorvastatin Calcium (Lipitor) 40 mg PO DAILY [facility] Last Admin: 12/03/16 09:42 Dose: 40 mg Docusate Sodium (Colace) 100 mg PO TID [facility] Last Admin: 12/03/16 09:42 Dose: 100 mg Doxycycline Hyclate (Doryx) 100 mg PO Q12 [facility] PRN Reason: Protocol Last Admin: 12/03/16 09:42 Dose: 100 mg Furosemide (Lasix) 40 mg PO DAILY [facility] Last Admin: 12/03/16 09:46 Dose: 40 mg Insulin Human Regular (Humulin R Low) 0 units SC ACHS [facility] PRN Reason: Protocol Last Admin: 12/03/16 12:17 Dose: Not Given Metformin HCl (Glucophage) 500 mg PO DAILY [facility] Last Admin: 11/29/16 09:18 Dose: 500 mg Methylprednisolone (Solu-Medrol) 10 mg IVP Q12 [facility] Last Admin: 12/03/16 09:43 Dose: 10 mg Metoprolol Succinate (Toprol Xl) 25 mg PO DAILY [facility] Last Admin: 12/03/16 09:46 Dose: 25 mg Montelukast Sodium (Singulair) 10 mg PO DAILY [facility] Last Admin: 12/03/16 09:42 Dose: 10 mg (Febuxostat [Uloric] (40 Mg)Home Med) 40 mg PO DAILY [facility] Last Admin: 12/03/16 09:45 Dose: 40 mg Tamsulosin HCl (Flomax) 0.4 mg PO DAILY [facility] Last Admin: 12/03/16 09:42 Dose: 0.4 mg Valsartan (Diovan) 320 mg PO DAILY [facility] Last Admin: 12/03/16 09:46 Dose: 320 mg Warfarin Sodium (Coumadin) 5 mg PO 1800 [facility] PRN Reason: Protocol Results - Vital Signs Recent Vital Signs: Last Vital Signs Temp 97.9 F 12/03/16 12:00 Pulse 64 12/03/16 12:00 Resp 18 12/03/16 12:00 BP 117/77 12/03/16 12:00 Pulse Ox 95 12/03/16 06:00 - Labs Result Diagrams: 12/03/16 06:30 12/03/16 06:30 Labs: Laboratory Results - last 24 hr 12/03/16 12/03/16 06:30 06:30 WBC 6.8 RBC 4.60 Hgb 14.9 Hct 43.6 MCV 94.8 MCH 32.4 MCHC 34.2 RDW 14.2 Plt Count 188 MPV 10.9 Sodium 137 Potassium 4.5 Chloride 98 Carbon Dioxide 32 Anion Gap 12 BUN 28 H Creatinine 0.8 Est GFR ( Amer) > 60 Est GFR (Non-Af Amer) > 60 Random Glucose 193 H Calcium 10.4 Attending/Attestation - Attestation I have personally seen and examined this patient.: Yes I have fully participated in the care of the patient.: Yes I have reviewed all pertinent clinical information: Yes
[2016-12-03 16:36] LABS: INR 1.12 (0.93-1.08)
[2016-12-03] MEDS: Magnesium Hydroxide Susp 30 ml UD PO PRN (17:57)
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
[2016-12-04 01:38] LABS: INR 1.09 (0.93-1.08)
--- NOTE | 2016-12-04 01:42 | PN ---
DATE: SUBJECTIVE: The patient seen and examined at the bedside, looking comfortable. No nausea, vomiting, or diarrhea. No hematuria and no hematochezia. No swelling of the leg. No chest pain. No palpitation. No headaches or dizziness. The patient was on one-to-one, but he does not like that. He wanted to be independent. He does not want anybody observing him, he was mad. Actually, he was getting hallucinations and delusional in the presence of girls in the room. He has had and children in my room. I had a length of time discussion done with the nurse and this is the one-to-one. The patient was seen by the neurologist and psychiatrist according to them, and the patient does not have any problem. The patient was having Coumadin and heparin. We are busy and was having to take the patient to TCU for that. PHYSICAL EXAMINATION VITAL SIGNS: Temperature 98.5, pulse 78, blood pressure 108/50, respiratory rate 18. HEENT: Head is normocephalic, atraumatic. Eyes; PERRLA, extraocular muscles intact, conjunctivae clear. Nose patent. Mucous membranes moist. NECK: Supple. No carotid bruits. No JVD or thyromegaly. CHEST: Bilaterally symmetrical. HEART: S1 and S2 positive. LUNGS: Clear to auscultation. ABDOMEN: Soft. Bowel sounds present. No organomegaly. EXTREMITIES: No edema. No cyanosis. NEUROLOGIC: The patient is awake and alert. Follow simple commands. MEDICATIONS: Colace, Coumadin, Diovan, doxycycline, albuterol, aspirin, Flomax, metformin, insulin, Lasix, Lipitor. LABORATORY DATA: White blood cells 6.8, hemoglobin 14.9, hematocrit 43.6, and platelets 188. Sodium 137, potassium 4.5, BUN 28, creatinine 0.8, and glucose 193. Calcium 10.4. ASSESSMENT AND PLAN: The patient is a 81-year-old male with anemia, increased BUN, diabetes mellitus, coronary artery disease status post catheterization, history of chronic obstructive pulmonary disease, congestive heart failure, and deep venous thrombosis. The patient is noncompliant with medications. The patient has recent hospitalization in [place] for similar reasons. Getting confusion on and off. History of hypertension, seen by the rug clipper, Dr. Silverman, is status post cath yesterday. Gastroesophageal reflux disease, gouty arthritis, dyspepsia, blind in the left eye. Continue cardiac medicine as per rug clipper. He wants to hold metformin. Because the patient is on warfarin for deep venous thrombosis, Dr. Silverman discontinued the Plavix. As the patient is at least 11 month of Coumadin, GI and DVT prophylaxis. Waiting to send the patient to TCU for bridging, one-to-one discontinued, transfer the patient in front of the the nursing station. Bessie Sanders MD MTDD
[2016-12-04] MEDS: Albuterol-Ipratrop 3 mg / 0.5 (3 ml) UD IH SCH ×4 (01:54→20:00)
--- NOTE | 2016-12-04 02:22 | PN ---
PULMONARY PROGRESS NOTE DATE: 12/03/2016 REFERRING PHYSICIAN: Dr. Sanders. SUBJECTIVE: He is out of bed to chair. Night was unremarkable. Feels better. No headache. No rhinitis. No chest pain. No nausea, vomiting or diarrhea. No leg pain or leg swelling. OBJECTIVE: GENERAL: In no acute distress. VITAL SIGNS: Temperature is 98, heart rate is 66, respiratory rate is 18, blood pressure 108/58, pulse ox 98% on nasal cannula. HEENT: Moist mucous membranes. Crowded airway. Mallampati score is IV. NECK: Supple. No JVD. LUNGS: Has few scattered rhonchi. Improved airflow. HEART: S1 and S2. ABDOMEN: Soft and nontender. No organomegaly. EXTREMITIES: No edema. JOSEFINA stocking in the lower extremity. NEUROLOGIC: Awake, alert and follows simple commands. MEDICATIONS: He is on Uloric 40 mg daily, Colace 100 mg 3 times a day, Coumadin 5 mg will be given to night, Diovan 320 mg daily, doxycycline 100 mg twice a day, DuoNeb q. 6 hours, Ecotrin 81 mg daily, Flomax 0.4 mg daily, metformin 500 mg daily, insulin coverage Lasix 40 mg daily, Lipitor 40 mg daily, MiraLax p.r.n. basis, Seroquel 25 mg at bedtime, Singulair 10 mg daily, Solu-Medrol 10 mg twice a day, Toprol-XL 25 mg daily. LABORATORY DATA: Shows hemoglobin 14.9, hematocrit 43.6, WBC 6.8, platelet is 188. INR 1.12. Sodium 137, potassium 4.5, chloride 98, bicarbonate 32, BUN 28, creatinine 0.8, glucose 102, calcium is 10.4. IMPRESSION AND PLAN: Deep venous thrombosis, obstructive lung disease, status post myocardial infarction, status post heart failure, coronary artery disease, hypertension, diabetes, gastroesophageal reflux disease, may have sleep apnea syndrome. The patient is not confused at all, sitting with the family. Will needed outpatient attended sleep study. Continue anticoagulation, fall precaution, bronchodilator. The patient asked to stop smoking. Spoke to the patient's family at bedside on the question answer. Thank you and we will follow with you. Krista Porter MD
[2016-12-04 06:35] LABS: INR 1.08 (0.93-1.08)
[2016-12-04] MEDS: Insulin Reg-LOW-Coverage SC SCH ×5 (08:01→23:41)
[2016-12-04] MEDS: MethylPREDNISolone 40 mg Vial IVP SCH ×2 (09:28→21:51)
[2016-12-04] MEDS: Metoprolol Succinate 25 mg XL Tab PO SCH (09:28)
--- NOTE | 2016-12-04 14:01 | PN ---
DATE: 12/04/2016 REFERRING PHYSICIAN: Dr. Sanders. SUBJECTIVE: He is out of bed to chair, feels better. No headache, no rhinitis. No shortness of breath. No nausea, vomiting, or diarrhea. Decreased leg pain and leg swelling. PHYSICAL EXAMINATION VITAL SIGNS: Temperature is 98, heart rate is 98, respiratory rate is 20, blood pressure 90/40, pulse oximetry 99% on room air. HEENT: Moist mucous membrane. Crowded airway. NECK: Supple. No JVD. HEART: S1, S2. LUNGS: Fair airflow with few rhonchi. ABDOMEN: Soft, nontender. No organomegaly. EXTREMITIES: There is no edema. NEUROLOGIC: Awake and alert. Follows simple commands. LABORATORY DATA: Reviewed. INR today 1.08. Blood sugar 102. MEDICATIONS: He is on Uloric 40 mg daily, Colace 100 mg twice a day, Coumadin 5 mg daily, Darvon 320 mg daily, doxycycline 100 mg twice a day *------* q.6 hours, Ecotrin 81 mg daily, Flomax 0.4 mg daily, Glucophage 500 mg daily, insulin coverage, Lasix 40 mg daily, Lipitor 40 mg daily, Maalox p.r.n. basis, Seroquel 25 mg at bedtime p.r.n., Singulair 10 mg daily, Solu-Medrol 10 mg q.12 hours, Toprol-XL 25 mg daily. IMPRESSION AND PLAN: DVT, obstructive lung disease, history of [place], heart failure, coronary artery disease, hypertension, diabetes, GERD, ADL dysfunction, sleep apnea syndrome. Case discussed with Dr. Sanders *------*, we will restart it. We will give Coumadin 10 mg daily. INR in the morning. Fall precautions. Thank you and we will follow with you. Krista Porter MD
[2016-12-04] MEDS: Heparin 25,000units in D5W 25,000 UNITS/250 ML BAG IV PRN (14:33)
--- NOTE | 2016-12-04 15:49 | PN ---
SUBJECTIVE: The patient is 81 years male. The patient is seen and examined at the bedside, sitting on the chair, and looks comfortable. No nausea, vomiting, or diarrhea. No hematochezia. No swelling of the legs. No chest pain. No palpitations. No headache or dizziness. PHYSICAL EXAMINATION: VITAL SIGNS: Temperature 97.5, pulse 98, blood pressure 90/40, and respiratory rate 20. HEENT: Head is normocephalic and atraumatic. Eyes; PERRLA. Extraocular muscles intact. Conjunctivae clear. Nose is patent. Mucous membrane moist. NECK: Supple. No carotid bruits. No JVD or thyromegaly. CHEST: Bilaterally symmetrical. HEART: S1 and S2 positive. LUNGS: Clear to auscultation. ABDOMEN: Soft. Bowel sounds positive. No organomegaly. EXTREMITIES: No edema. No cyanosis. NEUROLOGIC: The patient is awake and alert. Moving all 4 extremities. No focal deficit. MEDICATIONS: Uloric, docusate, Coumadin, Diovan, doxycycline, albuterol, DuoNeb, aspirin, Flomax, metformin, atorvastatin, Maalox, Milk of Magnesia, Seroquel, methylprednisolone tapering doses, and Toprol. LABORATORY DATA: INR is 1.08. PT is 11.7. We do not have other recent labs, today I reviewed old labs. Blood sugar is 102, 189, and 109. ASSESSMENT AND PLAN: Mr. Carlitos Bolivar is a 81 years old male has deep venous thrombosis, getting heparin, and started Coumadin bridging, obstructive lung disease, status post myocardial infarction, status post catheterization, congestive heart failure, coronary artery disease, hypertension, diabetes mellitus, gastroesophageal reflux disease, and sleep apnea syndrome. Once in a while, the patient is getting confused. Continue anticoagulation, fall precaution, bronchodilator, smoking. Dr. Porter met to the family, answered all questions. Try to take patient to CCU for bridging off of Coumadin. Discussed the plan with Taylor, nurse practitioner. We will followup. Bessie Sanders MD CLAUS
--- NOTE | 2016-12-04 22:39 | PN ---
DATE: PSYCHIATRIST: Dr. Walters SUBJECTIVE: Carlitos is a patient who is 81-year-old male with multiple medical issues. The patient was seen initially yesterday for altered mental status. This financial writer is following the patient up-to-date. This financial writer implemented small dose of Seroquel yesterday as needed for confusion and hallucinations at the nighttime. As per report, the patient did not have any Seroquel overnight. The patient was doing well. There is no episodes of being aggressive or agitated or going to other patients rooms. The patient was followed up today. The patient presented to be alert. The patient does not remember this financial writer, but that he is. The patient reports . The patient complain of some discomfort in his chest. The patient is status post cardiac procedure. Besides, the patient denies being depressed and denied thoughts of harming himself or others, denied intent or plan. The patient is improving. This financial writer reviewed vital signs and vital signs seems to be stable. PHYSICAL EXAMINATION: VITAL SIGNS: Temperature 96.6, pulse is 78, blood pressure 90/40. MENTAL STATUS EXAMINATION: The patient presented to be alert, mildly confused, fair eye contact. Speech was loud, but normal rate, quality and quantity. Mood described as I am no crazy, I am just doing fine. Affect was constricted, thought reactive, mood congruent. Thought process was goal directed at times confabulate. Thought content, the patient denied visual, auditory, tactile hallucinations. Denies paranoid ideation. The patient denied thoughts of harming himself or others. Denied intent or plan. Insight and judgement improving. Impulses are controlled. MEDICATIONS: Medications reviewed. The patient is on Maalox, DuoNeb, aspirin, Lipitor, Colace, doxycycline, Lasix, heparin, Humulin, milk of magnesia, Glucophage, Solu-Medrol, metoprolol, Singulair, Seroquel at the nighttime as needed for agitation and psychosis. The patient did not get any Seroquel. The patient is on Flomax, Diovan, and Coumadin. IMPRESSION: The patient has delirium due to general medical condition, which is improving. PLAN: Continue current management. Continue Seroquel as needed. From the psychiatric standpoint, there is nothing else could be done for the patient. The patient seems to be improving. This financial writer will sign off. Should you have any questions, I will give a call to Dr. Love over this weekend. Thank you very much for letting me to participate in the care of your patient. Lexi Ureña MD
[2016-12-05] MEDS: Albuterol-Ipratrop 3 mg / 0.5 (3 ml) UD IH SCH ×5 (01:20→19:53)
[2016-12-05] MEDS: Heparin 25,000units in D5W 25,000 UNITS/250 ML BAG IV PRN ×2 (03:42→17:08)
[2016-12-05] MEDS: Insulin Reg-LOW-Coverage SC SCH ×4 (08:00→21:54)
[2016-12-05] MEDS: Metoprolol Succinate 25 mg XL Tab PO SCH (12:19)
[2016-12-05] MEDS: MethylPREDNISolone 40 mg Vial IVP SCH ×2 (12:25→21:54)
[2016-12-05] MEDS: Alum-Mag Hydrox-Simethicone Susp (30 mL) PO PRN (12:32)
[2016-12-05 12:58] LABS: INR 1.23 (0.93-1.08); PARTIAL THROMBOPLASTIN TIME 46.6 Seconds (23.7-30.8)
--- NOTE | 2016-12-05 14:51 | PN ---
DATE: 12/05/2016 SUBJECTIVE: The patient is seen lying in bed on telemetry. He is currently comfortable. He denies any chest pain or dyspnea. CURRENT MEDICATIONS: Include Uloric, Coumadin, Diovan, doxycycline, DuoNeb inhaler, Ecotrin, Flomax, Glucophage, IV heparin, Lasix, Lipitor, Seroquel, Singulair, Solu-Medrol, and Toprol-XL. PHYSICAL EXAMINATION: GENERAL: He is an overweight elderly man. VITAL SIGNS: Blood pressure is 118/80, pulse is 66 and sinus, PVCs are noted, respirations are 14, he is afebrile. HEENT: No JVD. CHEST: A few scattered rhonchi noted. HEART: PMI displaced laterally with distant sounds noted. ABDOMEN: Soft and nontender, normoactive bowel sounds. EXTREMITIES: No edema. DIAGNOSTIC DATA: Recent PTT was 97.9. IMPRESSION: 1. Coronary artery disease, status post remote percutaneous coronary intervention of right coronary artery, recent catheterization reveal patent stent with moderate diffuse disease, unchanged. 2. Recent chest pain with borderline troponin possibly secondary to right heart strain. 3. History of hypertension, diabetes, obesity and history of chronic obstructive pulmonary disease. 4. [id number] deep vein thrombosis. 5. Moderate mitral and tricuspid regurgitation. RECOMMENDATIONS: Current cardiac medications will be continued. He is being loaded with Coumadin at this time. From the cardiac standpoint, he appears relatively stable for discharge once cleared by Pulmonary Medicine. Outpatient followup will be arranged. Manolo Haile MD
--- NOTE | 2016-12-05 18:31 | CP.PCM.PN ---
Subjective - Date & Time of Evaluation Date of Evaluation: 12/05/16 Time of Evaluation: 09:00 - Subjective Subjective: This is a 81 year old male with PMHx HTN, CAD s/p PCI, COPD, DM, CHF who presented to the hospital with complaints of weakness, groin pain, b/l leg edema. Patient recently discharged from a hospital in [place] where he had similar complaints. Patient is known to be non-compliant with medications. At time of encounter, patient was not in a confusional or agitated state. Per nurse, patient intermittently walks around and complains of wanting to leave the hospital. Patient states that he is well and denies fevers, chills, headaches, weakness, dizziness, paresthesias, CP, SOB, abdominal pain. Objective - Vital Signs/Intake and Output Vital Signs (last 24 hours): Temp Pulse Resp BP Pulse Ox 97.1 F L 104 H 20 140/78 97 12/05/16 17:46 12/05/16 17:46 12/05/16 17:46 12/05/16 17:46 12/05/16 05:56 Intake and Output: 12/05/16 12/05/16 06:59 18:59 Intake Total 1450 250 Balance 1450 250 - Medications Medications: Current Medications Al Hydrox/Mg Hydrox/Simethicone (Maalox Plus 30 Ml) 30 ml PO BID PRN PRN Reason: Indigestion / Heartburn Last Admin: 12/05/16 12:32 Dose: 30 ml Albuterol/Ipratropium (Duoneb 3 Mg/0.5 Mg (3 Ml) Ud) 3 ml IH [id number] [facility] Last Admin: 12/05/16 15:29 Dose: 3 ml Aspirin (Ecotrin) 81 mg PO DAILY [facility] Last Admin: 12/05/16 11:24 Dose: 81 mg Atorvastatin Calcium (Lipitor) 40 mg PO DAILY [facility] Last Admin: 12/05/16 11:24 Dose: 40 mg Docusate Sodium (Colace) 100 mg PO TID [facility] Last Admin: 12/05/16 16:54 Dose: Not Given Doxycycline Hyclate (Doryx) 100 mg PO Q12 [facility] PRN Reason: Protocol Last Admin: 12/05/16 11:23 Dose: 100 mg Furosemide (Lasix) 40 mg PO DAILY [facility] Last Admin: 12/05/16 11:24 Dose: 40 mg Heparin Sodium/Dextrose (Heparin 25,000 Units/250ml In D5w) 25,000 units in 250 mls @ 19.783 mls/hr IV .[id number] PRN; Protocol; 18 UNITS/KG/HR PRN Reason: ADJUST RATE PER PROTOCOL Last Admin: 12/05/16 17:08 Dose: 16.83 units/kg/hr, 18.497 mls/hr Insulin Human Regular (Humulin R Low) 0 units SC ACHS [facility] PRN Reason: Protocol Last Admin: 12/05/16 17:26 Dose: Not Given Magnesium Hydroxide (Milk Of Magnesia) 30 ml PO DAILY PRN PRN Reason: Constipation Last Admin: 12/03/16 17:57 Dose: 30 ml Metformin HCl (Glucophage) 500 mg PO DAILY [facility] Last Admin: 11/29/16 09:18 Dose: 500 mg Methylprednisolone (Solu-Medrol) 20 mg IVP Q12 [facility] Metoprolol Succinate (Toprol Xl) 25 mg PO DAILY [facility] Last Admin: 12/05/16 12:19 Dose: Not Given Montelukast Sodium (Singulair) 10 mg PO DAILY [facility] Last Admin: 12/05/16 11:30 Dose: 10 mg (Febuxostat [Uloric] (40 Mg)Home Med) 40 mg PO DAILY [facility] Last Admin: 12/05/16 12:13 Dose: 40 mg Quetiapine Fumarate (Seroquel) 25 mg PO HS PRN; Protocol PRN Reason: Psychosis, insomnia Last Admin: 12/04/16 21:51 Dose: 25 mg Tamsulosin HCl (Flomax) 0.4 mg PO DAILY [facility] Last Admin: 12/05/16 11:30 Dose: 0.4 mg Valsartan (Diovan) 320 mg PO DAILY [facility] Last Admin: 12/05/16 11:30 Dose: 320 mg Warfarin Sodium (Coumadin) 10 mg PO 1800 [facility] PRN Reason: Protocol Last Admin: 12/04/16 17:14 Dose: 10 mg - Labs Labs: 12/03/16 06:30 12/03/16 06:30 PT 13.3 Seconds (9.9-11.8) H 12/05/16 12:40 INR 1.23 (0.93-1.08) H 12/05/16 12:40 APTT 46.6 Seconds (23.7-30.8) H 12/05/16 12:40 - Constitutional Appears: Well - Head Exam Head Exam: ATRAUMATIC, NORMAL INSPECTION, NORMOCEPHALIC - Eye Exam Eye Exam: EOMI, Normal appearance, PERRL Pupil Exam: NORMAL ACCOMODATION, PERRL - ENT Exam ENT Exam: Mucous Membranes Moist, Normal Exam - Neck Exam Neck Exam: Full ROM, Normal Inspection. absent: Lymphadenopathy - Respiratory Exam Respiratory Exam: Clear to Ausculation Bilateral, NORMAL BREATHING PATTERN - Cardiovascular Exam Cardiovascular Exam: REGULAR RHYTHM, +S1, +S2. absent: Murmur - GI/Abdominal Exam GI & Abdominal Exam: Soft, Normal Bowel Sounds. absent: Tenderness - Rectal Exam Rectal Exam: NORMAL INSPECTION - Exam Exam: Circumcision, NORMAL INSPECTION External exam: NORMAL EXTERNAL EXAM Speculum exam: NORMAL SPECULUM EXAM Bimanual exam: NORMAL BIMANUAL EXAM - Extremities Exam Extremities Exam: Full ROM, Normal Capillary Refill, Normal Inspection. absent : Joint Swelling, Pedal Edema - Back Exam Back Exam: NORMAL INSPECTION - Neurological Exam Neurological Exam: Alert, Awake, CN II-XII Intact, Normal Gait, Oriented x3 - Psychiatric Exam Psychiatric exam: Normal Affect, Normal Mood - Skin Skin Exam: Dry, Intact, Normal Color, Warm Assessment and Plan (1) COPD (chronic obstructive pulmonary disease) Status: Acute (2) DVT (deep venous thrombosis) Status: Acute (3) Leg edema Status: Acute (4) Alcohol abuse Status: Acute (5) Asthma Status: Acute (6) COPD with acute exacerbation Status: Acute (7) Cough with hemoptysis Status: Acute (8) Elevated brain natriuretic peptide (BNP) level Status: Acute (9) Flu Status: Acute (10) Frequent PVCs Status: Acute (11) Hypokalemia Status: Acute (12) Hypomagnesemia Status: Acute (13) Influenza A Status: Acute (14) Pneumonia Status: Acute (15) Prophylactic measure Status: Acute (16) Shoulder pain, left Status: Acute (17) Tobacco abuse Status: Acute (18) CAD (coronary artery disease) Status: Chronic (19) Diabetes Status: Chronic (20) Hypertension Status: Chronic - Assessment and Plan (Free Text) Assessment: - Assessment and Plan (Free Text) Assessment: This is a 81 year old male with PMHx HTN, CAD s/p PCI, COPD, DM, CHF who presented to the hospital with complaints of weakness, groin pain, b/l leg edema. Patient has episodes transient confusional state due to delirium secondary to medical status and dehydration. Patient was not confused or agitated at time of encounter. Plan: 1) Delirium precautions 2) Maintain adequate hydration. 3) Avoid night-time interruptions. 4) PT evaluation and treatment. 5) Psychiatric assessment if behavior becomes agitated , pt was seen by dr Elliott .
--- NOTE | 2016-12-05 20:30 | PN ---
PULMONARY PROGRESS NOTE DATE: 12/05/2016 REFERRING PHYSICIAN: Dr. Sanders. SUBJECTIVE: He is lying in the bed. The patient reveals his nebulizer treatment, short of breath, he is wheezing. No nausea, no vomiting or diarrhea. No leg pain or leg swelling. OBJECTIVE: GENERAL: In no acute distress. VITAL SIGNS: Temperature is 98, heart rate is 62, respiratory rate is 20, blood pressure is 98/50, and pulse ox 97% on room air. HEENT: Moist mucous membranes. Crowded airway. Mallampati score is 4. NECK: Supple. No JVD. LUNGS: Prolonged expiratory phase and wheezing. HEART: S1 and S2. ABDOMEN: Soft and nontender. No organomegaly. EXTREMITIES: There is no edema. NEUROLOGICAL: Awake and alert. Follows simple commands. MEDICATIONS: He is on Uloric 40 mg daily, Colace 100 mg three times day, Coumadin 10 mg given last night, Diovan 320 mg daily, doxycycline 100 mg twice a day, DuoNeb q.6 hour around the clock, Ecotrin 81 mg daily, Flomax 0.4 mg daily, metformin 500 mg daily, heparin weight-based protocol, Lasix 40 mg daily, Lipitor 40 mg daily, milk of magnesia 30 mL q. daily p.r.n., Seroquel 25 mg at bedtime p.r.n, Singulair 10 mg daily, Solu-Medrol 10 mg q. 12 hour, Toprol-XL 20 mg daily. LABORATORY DATA: Reviewed and shows INR 1.26, PTT is 47, blood sugar 102. Laboratory data shows urine culture, there is no growth. IMPRESSION AND PLAN: Obstructive lung disease, history of myocardial infarction, heart failure, coronary artery disease, hypertension, diabetes, gastroesophageal reflux disease, ADL dysfunction, sleep apnea syndrome. Spoke to nursing staff and requested to give nebulizer treatment. We will increase Solu-Medrol to 20 q.12 hour. May give Coumadin 10 mg today. INR in the morning. Continue heparin for no fall precaution. Thank you and we will follow with you. Krista Porter MD
[2016-12-06] MEDS: Albuterol-Ipratrop 3 mg / 0.5 (3 ml) UD IH SCH ×4 (01:06→19:21)
[2016-12-06] MEDS: Heparin 25,000units in D5W 25,000 UNITS/250 ML BAG IV PRN (01:36)
[2016-12-06] MEDS: Enoxaparin 100 mg Syringe SC SCH ×2 (06:29→18:14)
[2016-12-06 07:25] LABS: INR 1.56 (0.93-1.08)
[2016-12-06] MEDS: Insulin Reg-LOW-Coverage SC SCH ×4 (08:00→22:30)
--- NOTE | 2016-12-06 09:06 | PN ---
DATE: 12/06/2016 SUBJECTIVE: The patient was seen sitting in bed, on telemetry. He is currently comfortable. His PTT has been erratic; in addition he has been pulling out his IVs at times. His INR from yesterday was 1.23. He otherwise feels comfortable. CURRENT MEDICATIONS: His current medications include: 1. Uloric. 2. Coumadin. 3. Diovan. 4. Doxycycline. 5. DuoNeb inhaler. 6. Ecotrin. 7. Flomax. 8. Glucophage. 9. Insulin coverage. 10. Lasix 40 mg daily. 11. Lipitor. 12. Seroquel. 13. Singulair. 14. Solu-Medrol 20 mg q. 12 hours. 15. Toprol-XL 25 mg daily. OBJECTIVE: GENERAL: He is an obese, elderly man. VITAL SIGNS: His blood pressure is 136/74 with a pulse of 66 in sinus, respirations are 16, and he is afebrile. HEENT: No JVD. CHEST: Few scattered rhonchi heard. HEART: Tones are distant. ABDOMEN: Soft, obese, and nontender with bowel sounds. EXTREMITIES: No edema. DIAGNOSTIC DATA: Last PTT was 123. IMPRESSION: 1. Coronary artery disease status post remote percutaneous coronary intervention of right coronary artery, clinically stable. Recent catheterization revealed a patent stent with moderate diffuse triple vessel disease. 2. [id number] deep vein thrombosis being loaded with Coumadin. Short-term anticoagulation with heparin has been variable because of intravenous access and erratic partial thromboplastin time. 3. Moderate mitral and tricuspid regurgitation. 4. History of hypertension, diabetes, and obesity. RECOMMENDATIONS: His current cardiac medications will be continued. As there is difficulty with IV access, Lovenox will be initiated and heparin discontinued for now. Coumadin loading to continue. Further plans will be made based upon his clinical course. We will be happy to follow as needed. Manolo Haile MD
[2016-12-06] MEDS: Metoprolol Succinate 25 mg XL Tab PO SCH (11:49)
[2016-12-06] MEDS: MethylPREDNISolone 40 mg Vial IVP SCH ×2 (12:00→22:34)
[2016-12-06] MEDS ORDERED: MethylPREDNISolone 40 mg Vial IVP SCH (22:25)
[2016-12-07] MEDS: Albuterol-Ipratrop 3 mg / 0.5 (3 ml) UD IH SCH ×4 (01:03→19:35)
--- NOTE | 2016-12-07 03:02 | PN ---
DATE: 12/06/2016 PULMONARY PROGRESS NOTE REFERRING PHYSICIAN: Dr. Sanders. SUBJECTIVE: He is out of bed to chair, feels better compared to yesterday. Decreased cough, decreased shortness of breath, no nausea, no vomiting, no diarrhea. Decreased leg swelling. OBJECTIVE: GENERAL: In no distress. VITAL SIGNS: Temp is 98, heart rate is 70, respiratory rate is 20, blood pressure is 91/43, pulse ox 95% on room air. HEENT: Moist mucous membranes . NECK: Supple. No JVD. LUNGS: A few scattered rhonchi. HEART: S1, S2. ABDOMEN: Soft, nontender, no organomegaly. EXTREMITIES: There is trace edema. NEUROLOGIC: Awake and alert. Follows simple commands. MEDICATIONS: He is on Uloric 40 mg daily, Colace 100 mg 3 times a day, Coumadin 10 mg daily, Diovan 320 mg daily, doxycycline 100 mg twice a day, DuoNeb q. 6 hours, Ecotrin 81 mg daily, Flomax 0.4 mg daily, metformin 500 mg daily, insulin coverage, Lasix 40 mg daily, Lipitor 40 mg daily, Lovenox 100 mg q. 12 hours, Seroquel 25 mg at bedtime p.r.n., Singulair 10 mg daily, Solu-Medrol 10 mg twice daily, Toprol-XL 25 mg daily, Tylenol p.r.n. basis. LABORATORY DATA: Shows INR today 1.56. Blood sugar 197. IMPRESSION AND PLAN: Obstructive lung disease, myocardial infarction, heart failure, coronary artery disease, hypertension, diabetes, gastroesophageal reflux disease, deep vein thrombosis, ADL dysfunction, may have sleep apnea syndrome. He feels better compared to yesterday. Solu-Medrol has been decreased. Noted heparin is switched to Lovenox, received Coumadin. Followup INR in the morning. Fall precaution. Will benefit from outpatient PFT and sleep study. Patient is urged to stop smoking. Thank you, and we will follow with you. Krista Porter MD
--- NOTE | 2016-12-07 03:41 | PN ---
SUBJECTIVE: The patient was examined on the bedside and looks comfortable. Sitting on the chair; complaining about joint pain, especially hands; pulled IV line. No nausea, vomiting, diarrhea, otherwise is comfortable. No hematuria or hematochezia. No swelling of the leg. No chest pain. No palpitation or headache. PHYSICAL EXAMINATION: VITAL SIGNS: Temperature 97.6, pulse 70, blood pressure 91/43 and respiratory rate 19. HEENT: Head is normocephalic and atraumatic. Eyes; PERRLA. Extraocular muscles intact. Conjunctivae clear. Nose is patent. Mucous membrane moist. NECK: Supple. No carotid bruits. No JVD or thyromegaly. CHEST: Bilaterally symmetrical. HEART: S1 and S2 positive. LUNGS: Clear to auscultation. ABDOMEN: Soft. Bowel sounds positive. No organomegaly. EXTREMITIES: No edema. No cyanosis. NEUROLOGIC: The patient is awake and alert. Moving all 4 extremities. No focal deficit. MEDICATIONS: Uloric, Colace, Coumadin, Diovan, doxycycline, albuterol, aspirin, Flomax, Glucophage, insulin, Lasix, Lipitor, Lovenox, milk of magnesia, Solu-Medrol , Toprol and Tylenol. LABORATORY DATA: White blood cells 6.8, hemoglobin 14.9, hematocrit 43.6 and platelets 188. Sodium 137, potassium 4.5, BUN 20, creatinine 0.8 and glucose 189. ASSESSMENT AND PLAN: Mr. Osmel Urbina is a 81-year-old male with history of anemia, diabetes mellitus, proteinuria, bilirubinuria, seen by the garden consultant Dr. Manolo Haile, history of gouty arthritis, coronary artery disease, status post remote percutaneous coronary intervention of right coronary artery, clinically stable. Recent catheterization revealed a patent stent and moderate diffuse triple vessel disease. [id number] deep vein thrombosis being loaded with Coumadin. Short-term anticoagulation with heparin has been variable because of intravenous access and erratic partial thromboplastin time. Moderate mitral and tricuspid regurgitation. History of hypertension and diabetes mellitus. garden consultant continue cardiac medication. There is difficulty in IV access, so garden consultant discontinued heparin and put the patient on Lovenox. The patient is taking Coumadin also, still we are bridging, trying to take the patient to TCU for bridging. Rule out arthritis, gave Tylenol by the physical therapy. We will followup. Bessie Sanders MD CLAUS
[2016-12-07] MEDS: Enoxaparin 100 mg Syringe SC SCH (06:07)
[2016-12-07 06:35] LABS: INR 2.3 (0.93-1.08)
[2016-12-07] MEDS: Insulin Reg-LOW-Coverage SC SCH ×4 (08:31→21:40)
--- NOTE | 2016-12-07 09:16 | CP.PCM.PN ---
Subjective - Date & Time of Evaluation Date of Evaluation: 12/07/16 Time of Evaluation: 07:00 - Subjective Subjective: Stable on 2R. No CP or SOB. V/S noted. RSR PE: Lungs: few rhonchi Cor.: S1S2, systolic murmur Abd.: soft Ext.: mild edema. Groin OK Neuro.: alert Labs noted. INR 2.3 ECG 11/28: RSR, PVC's, IVCD, No acute changes. V/Q: low prob. Echo: Mild LVD, EF ~ 45 - 50 %, moderate inferior HK, moderate MR and TR, severe PH CT Head noted. Cath noted: Patent RCA sents, Moderate 3 vessel Disease. Nl LV fx.. Medical Therapy advised Objective - Vital Signs/Intake and Output Vital Signs (last 24 hours): Temp Pulse Resp BP Pulse Ox 97.8 F 57 L 18 116/67 95 12/07/16 06:00 12/07/16 06:00 12/07/16 06:00 12/07/16 06:00 12/07/16 06:00 Intake and Output: 12/07/16 12/07/16 06:59 18:59 Intake Total 717 Output Total 2 Balance 715 - Medications Medications: Current Medications Acetaminophen (Tylenol 325mg Tab) 650 mg PO Q6H PRN PRN Reason: Pain, severe (8-10) Last Admin: 12/06/16 22:26 Dose: 650 mg Al Hydrox/Mg Hydrox/Simethicone (Maalox Plus 30 Ml) 30 ml PO BID PRN PRN Reason: Indigestion / Heartburn Last Admin: 12/05/16 12:32 Dose: 30 ml Albuterol/Ipratropium (Duoneb 3 Mg/0.5 Mg (3 Ml) Ud) 3 ml IH [id number] [facility] Last Admin: 12/07/16 07:45 Dose: 3 ml Aspirin (Ecotrin) 81 mg PO DAILY [facility] Last Admin: 12/06/16 11:48 Dose: 81 mg Atorvastatin Calcium (Lipitor) 40 mg PO DAILY [facility] Last Admin: 12/06/16 11:48 Dose: 40 mg Docusate Sodium (Colace) 100 mg PO TID [facility] Last Admin: 12/06/16 18:22 Dose: 100 mg Doxycycline Hyclate (Doryx) 100 mg PO Q12 [facility] PRN Reason: Protocol Last Admin: 12/06/16 22:26 Dose: 100 mg Enoxaparin Sodium (Lovenox) 100 mg SC Q12H [facility] PRN Reason: Protocol Last Admin: 12/07/16 06:07 Dose: 100 mg Furosemide (Lasix) 40 mg PO DAILY [facility] Last Admin: 12/06/16 11:49 Dose: 40 mg Insulin Human Regular (Humulin R Low) 0 units SC ACHS [facility] PRN Reason: Protocol Last Admin: 12/07/16 08:31 Dose: 2 units Magnesium Hydroxide (Milk Of Magnesia) 30 ml PO DAILY PRN PRN Reason: Constipation Last Admin: 12/03/16 17:57 Dose: 30 ml Metformin HCl (Glucophage) 500 mg PO DAILY [facility] Last Admin: 11/29/16 09:18 Dose: 500 mg Methylprednisolone (Solu-Medrol) 10 mg IVP Q12 [facility] Metoprolol Succinate (Toprol Xl) 25 mg PO DAILY [facility] Last Admin: 12/06/16 11:49 Dose: 25 mg Montelukast Sodium (Singulair) 10 mg PO DAILY [facility] Last Admin: 12/06/16 11:49 Dose: 10 mg (Febuxostat [Uloric] (40 Mg)Home Med) 40 mg PO DAILY [facility] Last Admin: 12/06/16 11:50 Dose: 40 mg Quetiapine Fumarate (Seroquel) 25 mg PO HS PRN; Protocol PRN Reason: Psychosis, insomnia Last Admin: 12/04/16 21:51 Dose: 25 mg Tamsulosin HCl (Flomax) 0.4 mg PO DAILY [facility] Last Admin: 12/06/16 11:48 Dose: 0.4 mg Valsartan (Diovan) 320 mg PO DAILY [facility] Last Admin: 12/06/16 11:48 Dose: 320 mg Warfarin Sodium (Coumadin) 5 mg PO 1800 [facility] PRN Reason: Protocol - Labs Labs: 12/03/16 06:30 12/06/16 17:20 PT 24.8 Seconds (9.9-11.8) H 12/07/16 06:00 INR 2.30 (0.93-1.08) H 12/07/16 06:00 APTT 123.0 Seconds (23.7-30.8) H* 12/06/16 03:15 Assessment and Plan - Assessment and Plan (Free Text) Assessment: Edema/Weakness "Heart Burn" Chest Pain/+ trops/NSTEMI AMS/Confusion DVT Diabetes HBP CAD/triple vessel disease with RCA PCI 12/23. COPD CHF Smoker GERD Gout HLD Blind OS Echo: Moderate MR and TR with severe PH Plan: Pulm. tx., as per Dr. Porter. As per Dr. Sanders Continue cardiac meds: ASA, metoprolol, Lipitor, Diovan, Lasix. Warfarin 5 mg. today. D/C Lovenox. Close out-pt F/U for INR's/warfarin therapy. Cardiology F/U with Dr. Haile in 2 weeks.
[2016-12-07] MEDS: Metoprolol Succinate 25 mg XL Tab PO SCH (09:19)
[2016-12-07] MEDS: Magnesium Hydroxide Susp 30 ml UD PO PRN (18:35)
--- NOTE | 2016-12-07 22:38 | PN ---
DATE: SUBJECTIVE: The patient seen and examined at the bedside, looking comfortable, sitting on the chair. No nausea, vomiting or diarrhea. No hematuria or hematochezia. No swelling of the leg. No chest pain. No palpitation. No headache. No dizziness. PHYSICAL EXAMINATION VITAL SIGNS: Temperature 98.5, pulse 62, blood pressure 107/50 and respiratory rate is 18. HEENT: Head is normocephalic and atraumatic. Eyes; PERRLA. Extraocular muscles intact. Conjunctivae clear. Nose is patent. Mucous membrane moist. NECK: Supple. No carotid bruits. No JVD or thyromegaly. CHEST: Bilaterally symmetrical. HEART: S1 and S2 positive. LUNGS: Clear to auscultation. ABDOMEN: Soft. Bowel sounds positive. No organomegaly. EXTREMITIES: No edema. No cyanosis. NEUROLOGIC: The patient is awake and alert. Moving all 4 extremities. No focal deficit. MEDICATIONS: Colace, Coumadin, Diovan, doxycycline, albuterol, aspirin, Flomax, Glucophage, insulin, Lasix, Lipitor, Maalox, milk of magnesia, prednisone, Seroquel. LABORATORY DATA: White blood cell count of 6.8, hemoglobin 14.9, hematocrit 43.6, platelets 188. Sodium 137, potassium 4.5, glucose 197, INR 2.30. ASSESSMENT AND PLAN: The patient is a 81-year-old male with multiple medical problems, have obstructive lung disease, myocardial infarction, congestive heart failure, coronary artery disease, hypertension, diabetes mellitus, gastroesophageal reflux disease, deep vein thrombosis, was getting Coumadin and Lovenox. Now INR is decreased. We will discontinue Lovenox, ADL dysfunction, may have sleep apnea syndrome, feels better compared to yesterday. Solu-Medrol, he is getting tapering dose. Gastrointestinal and deep venous thrombosis prophylaxis, discontinue telemetry. will take the patient to TCU, but TCU refused. As per social workers, insurance is not approving the TCU transfer. Urged to quit smoking. We will follow up. Bessie Sanders MD MTDMoi
--- NOTE | 2016-12-07 22:47 | PN ---
PULMONARY PROGRESS NOTE DATE: 12/07/2016 REFERRING PHYSICIAN: Dr. Bolden. SUBJECTIVE: He is out of bed to chair. No headache. No rhinitis. No nausea. No vomiting. No diarrhea. No face or leg swelling. PHYSICAL EXAMINATION: GENERAL: No acute distress. VITAL SIGNS: Temperature is 98, heart rate is 62,respiratory rate is 18, blood pressure 107/58. HEENT: Moist mucous membranes. Crowded airway. NECK: Supple. No JVD. LUNGS: Fair air flow with rhonchus. HEART: S1 and S2. ABDOMEN: Soft and nontender. No organomegaly. EXTREMITIES: Trace edema. NEUROLOGIC: Awake and alert. Follow simple commands. MEDICATIONS: He is on Uloric 40 mg daily, Colace 100 mg three times a day, Coumadin 5 mg will be given tonight, 320 mg daily, doxycycline 100 mg twice a day, DuoNeb q.6 hour, Ecotrin 81 mg daily, Flomax 0.4 mg daily, metformin 500 mg daily, insulin coverage, Lasix 40 mg daily, Lipitor 40 mg daily, Lovenox 100 mg subcutaneous twice a day, MiraLax p.r.n. basis, Seroquel 25 mg at bedtime p.r.n., Singulair 10 mg daily, Solu-Medrol 10 mg daily, Toprol XL 25 mg daily and Tylenol p.r.n. basis. LABORATORY DATA: Review shows INR 2.30. IMPRESSION AND PLAN: Obstructive lung disease, deep venous thrombosis, myocardial infarction, heart failure, coronary artery disease, hypertension, diabetes, gastroesophageal reflux disease, sleep apnea syndrome, activities of daily living dysfunction. From pulmonary point of view, doing okay. May discontinue Solu-Medrol. Plan is on 20 mg taper of next five days, may give Coumadin 5 mg today, discontinue Lovenox, will benefit from . The patient lives alone, may not be safe discharge, because he is on blood thinners. Krista Porter MD
[2016-12-07 22:55] LABS: INR 2.66 (0.93-1.08)
[2016-12-08 01:14] VITALS: RESP 20
[2016-12-08] MEDS: Albuterol-Ipratrop 3 mg / 0.5 (3 ml) UD IH SCH ×2 (01:35→07:54)
[2016-12-08 06:21] VITALS: PULSE 60; TEMP 97.5; O2SAT 94
[2016-12-08 06:25] LABS: HEMATOCRIT 43.2 % (42.0-52.0); MEAN CELL VOLUME 94.3 fL (80.0-105.0); MEAN CORPUSCULAR HEMOGLOBIN 32.1 pg (25.0-35.0); MEAN PLATELET VOLUME 11.1 fl (7.0-11.0); RED CELL DISTRIBUTION WIDTH 14.2 % (11.5-14.5); WHITE BLOOD COUNT 7.4 10^3/ul (4.5-11.0)
[2016-12-08 06:28] LABS: INR 2.63 (0.93-1.08)
[2016-12-08 07:02] LABS: BLOOD UREA NITROGEN 62 mg/dL (7-21); CALCIUM 9.7 mg/dL (8.4-10.5); CARBON DIOXIDE 26 mmol/L (21-33); CHLORIDE 95 mmol/L (95-110); GFR AFRICAN-AMERICAN > 60; GLUCOSE,RANDOM 214 mg/dL (70-110); POTASSIUM 4.8 mmol/L (3.6-5.0); SODIUM 129 mmol/L (132-148)
[2016-12-08] MEDS: Insulin Reg-LOW-Coverage SC SCH (08:21)
[2016-12-08] MEDS: Metoprolol Succinate 25 mg XL Tab PO SCH (09:19)
[2016-12-08 09:28] VITALS: BP 122/62
--- NOTE | 2016-12-08 18:47 | CP.PCM.DIS ---
Provider - Provider Date of Admission: 11/25/16 17:09 Attending physician: Bessie Sanders MD Primary care physician: Taylor Portillo MD Time Spent in preparation of Discharge (in minutes): 60 Diagnosis - Discharge Diagnosis (1) COPD (chronic obstructive pulmonary disease) Status: Acute (2) DVT (deep venous thrombosis) Status: Acute (3) Leg edema Status: Acute (4) Alcohol abuse Status: Acute (5) Asthma Status: Acute (6) COPD with acute exacerbation Status: Acute (7) Cough with hemoptysis Status: Acute (8) Elevated brain natriuretic peptide (BNP) level Status: Acute (9) Flu Status: Acute (10) Frequent PVCs Status: Acute (11) Hypokalemia Status: Acute (12) Hypomagnesemia Status: Acute (13) Influenza A Status: Acute (14) Pneumonia Status: Acute (15) Prophylactic measure Status: Acute (16) Shoulder pain, left Status: Acute (17) Tobacco abuse Status: Acute (18) CAD (coronary artery disease) Status: Chronic (19) Diabetes Status: Chronic (20) Hypertension Status: Chronic Hospital Course - Lab Results Lab Results: Micro Results 11/27/16 09:03 Nose MRSA Culture (Admit) - Final MRSA NOT DETECTED Most Recent Lab Values WBC 7.4 10^3/ul (4.5-11.0) 12/08/16 05:20 RBC 4.58 10^6/uL (3.5-6.1) 12/08/16 05:20 Hgb 14.7 gm/dL (14.0-18.0) 12/08/16 05:20 Hct 43.2 % (42.0-52.0) 12/08/16 05:20 MCV 94.3 fL (80.0-105.0) 12/08/16 05:20 MCH 32.1 pg (25.0-35.0) 12/08/16 05:20 MCHC 34.0 g/dl (31.0-37.0) 12/08/16 05:20 RDW 14.2 % (11.5-14.5) 12/08/16 05:20 Plt Count 184 10^3/uL (120.0-450.0) 12/08/16 05:20 MPV 11.1 fl (7.0-11.0) H 12/08/16 05:20 Gran % 87.9 % (50.0-68.0) H 11/27/16 07:35 Lymph % (Auto) 6.6 % (22.0-35.0) L 11/27/16 07:35 [place] % (Auto) 5.5 % (1.0-6.0) 11/27/16 07:35 Eos % (Auto) 0.0 % (1.5-5.0) L 11/27/16 07:35 Baso % (Auto) 0.0 % (0.0-3.0) 11/27/16 07:35 Gran # 7.08 (1.4-6.5) H 11/27/16 07:35 Lymph # 0.5 (1.2-3.4) L 11/27/16 07:35 [place] # 0.4 (0.1-0.6) 11/27/16 07:35 Eos # 0.0 (0.0-0.7) 11/27/16 07:35 Baso # 0.00 K/mm3 (0.0-2.0) 11/27/16 07:35 PT 28.4 Seconds (9.9-11.8) H 12/08/16 05:20 INR 2.63 (0.93-1.08) H 12/08/16 05:20 APTT 123.0 Seconds (23.7-30.8) H* 12/06/16 03:15 pCO2 42 mm/Hg (35-45) 11/28/16 07:30 pO2 96.0 mm/Hg (80-100) 11/28/16 07:30 HCO3 27.9 mmol/L (21-28) 11/28/16 07:30 ABG pH 7.43 (7.35-7.45) 11/28/16 07:30 ABG Total CO2 29.2 mmol.L (22-28) H 11/28/16 07:30 ABG O2 Saturation 98.3 % (95-98) H 11/28/16 07:30 ABG O2 Content 16.5 ML/dl (15-23) 11/28/16 07:30 ABG Base Excess 3.2 mmol/L (-2.0-3.0) H 11/28/16 07:30 ABG Hemoglobin 12.1 g/dL (11.7-17.4) 11/28/16 07:30 ABG Carboxyhemoglobin 1.1 % (0.5-1.5) 11/28/16 07:30 POC ABG HHb (Measured) 1.7 % (0-5) 11/28/16 07:30 ABG Methemoglobin 1.0 % (0.0-3.0) 11/28/16 07:30 ABG O2 Capacity 16.8 mL/dl (16-24) 11/28/16 07:30 VBG pH 7.38 (7.32-7.43) 11/25/16 12:15 VBG pCO2 62.0 (40-60) H 11/25/16 12:15 VBG HCO3 36.7 mmol/l (21-28) H 11/25/16 12:15 VBG Total CO2 38.6 mmol.L (22-28) H 11/25/16 12:15 VBG O2 Sat (Calc) 67.8 % (40-65) H 11/25/16 12:15 VBG Base Excess 9.2 mmol/L (0.0-2.0) H 11/25/16 12:15 VBG Potassium 3.2 mmol/L (3.6-5.2) L 11/25/16 12:15 Hgb O2 Saturation 96.2 % (95.0-98.0) 11/28/16 07:30 Sodium 140.0 mmol/L (132-148) 11/25/16 12:15 Chloride 99.0 mmol/L (98-107) 11/25/16 12:15 Glucose 113 mg/dl (75-110) H 11/25/16 12:15 Lactate 1.5 mmol/L (0.7-2.1) 11/25/16 12:15 FiO2 32.0 % 11/28/16 07:30 Sodium 129 mmol/L (132-148) L 12/08/16 05:20 Potassium 4.8 mmol/L (3.6-5.0) 12/08/16 05:20 Chloride 95 mmol/L (95-110) 12/08/16 05:20 Carbon Dioxide 26 mmol/L (21-33) 12/08/16 05:20 Anion Gap 13 (10-20) 12/08/16 05:20 BUN 62 mg/dL (7-21) H 12/08/16 05:20 Creatinine 1.2 mg/dL (0.5-1.4) 12/08/16 05:20 Est GFR ( Amer) > 60 12/08/16 05:20 Est GFR (Non-Af Amer) 58 12/08/16 05:20 POC Glucose (mg/dL) 102 mg/dL (65-110) 12/03/16 21:58 Random Glucose 214 mg/dL (70-110) H 12/08/16 05:20 Hemoglobin A1c 5.6 % (4.2-6.5) 11/26/16 07:30 Calcium 9.7 mg/dL (8.4-10.5) 12/08/16 05:20 Phosphorus 3.0 mg/dL (2.5-4.5) 11/27/16 07:35 Magnesium 1.8 mg/dL (1.7-2.2) 11/27/16 07:35 Iron 36 ug/dL (45-180) L 11/26/16 06:40 TIBC 236 ug/dL (261-462) L 11/26/16 06:40 % Saturation 15 % (20-55) L 11/26/16 06:40 Total Bilirubin 0.6 mg/dL (0.2-1.3) 11/27/16 07:35 AST 45 U/L (15-59) 11/27/16 07:35 ALT 35 U/L (7-56) 11/27/16 07:35 Alkaline Phosphatase 91 U/L (38-133) 11/27/16 07:35 Lactate Dehydrogenase 500 U/L (333-699) 11/25/16 12:15 Total Creatine Kinase 389 U/L (35-230) H 11/25/16 12:15 CK-MB (CK-2) 1.9 ng/mL (0.0-3.6) 11/25/16 12:15 CK-MB (CK-2) % Cancelled 11/25/16 12:15 Troponin I 0.17 ng/mL H* D 11/29/16 07:00 NT-Pro-B Natriuret Pep 2040 pg/mL (0-450) H 11/26/16 06:40 Total Protein 6.6 g/dL (5.8-8.3) 11/27/16 07:35 Albumin 3.4 g/dL (3.0-4.8) 11/27/16 07:35 Globulin 3.2 gm/dL 11/27/16 07:35 Albumin/Globulin Ratio 1.1 (1.1-1.8) 11/27/16 07:35 Triglycerides 93 mg/dL (35-160) 11/26/16 06:40 Cholesterol 156 mg/dL (130-200) 11/26/16 06:40 LDL Cholesterol Direct 60 mg/dL (0-129) 11/26/16 06:40 HDL Cholesterol 65 mg/dL (29-60) H 11/26/16 06:40 Vitamin B12 446 pg/mL (239-931) 11/26/16 06:40 Folate 7.4 ng/mL 11/26/16 06:40 TSH 3rd Generation 0.55 mIU/mL (0.46-4.68) 11/26/16 06:40 Venous Blood Potassium 3.2 mmol/L (3.6-5.2) L 11/25/16 12:15 Urine Color Dark yellow (YELLOW) 11/25/16 12:51 Urine Appearance Clear (CLEAR) 11/25/16 12:51 Urine pH 6.5 (4.7-8.0) 11/25/16 12:51 Ur Specific [place] 1.015 (1.005-1.035) 11/25/16 12:51 Urine Protein Trace mg/dL (<30 mg/dL) H 11/25/16 12:51 Urine Glucose (UA) Negative mg/dL (NEGATIVE) 11/25/16 12:51 Urine Ketones Negative mg/dL (NEGATIVE) 11/25/16 12:51 Urine Blood Negative (NEGATIVE) 11/25/16 12:51 Urine Nitrate Negative (NEGATIVE) 11/25/16 12:51 Urine Bilirubin Small (NEGATIVE) H 11/25/16 12:51 Urine Urobilinogen >=8.0 E.U./dL (<1 E.U./dL) 11/25/16 12:51 Ur Leukocyte Esterase Negative Judi/uL (NEGATIVE) 11/25/16 12:51 Urine RBC 0 - 2 /hpf (0-2) 11/25/16 12:51 Urine WBC 0 - 2 /hpf (0-6) 11/25/16 12:51 Ur Epithelial Cells 0 - 2 /hpf (0-5) 11/25/16 12:51 Urine Bacteria Trace (NEG) 11/25/16 12:51 - Hospital Course Hospital Course: 81 yo M with pmh of DM, COPD, CAD, HTN, CHF, presents c/o feeling weak, groin pain, with b/l LE edema, states that she was recently in [place] visiting his sister and had to visit the ER on 11/22 for similar symptoms, pt has a copy of his d/c instructions on him. On the d/c instructions, pt was dx with edema, and was medicated with lasix, albuterol and atrovent. States that after he was treated in the ER was he d/c and was not admitted, however he states that he still feels weak and still has edema to his legs. Pt does admit that he takes lasix and is not very complaint with taking his medication, states that he takes it "here and there" when he recalls. Otherwise denies fever , chills, CP, SOB, dyspnea, N/V/D, abdominal pain, dysuria, headache, dizziness. Pt has no other complaints at this time. cardiology and pul. consult called . had dvt , put on hep then lovenox , got comedine . PMHx HTN, CAD s/p PCI, COPD, DM, CHF, Patient has episodes transient confusional state due to delirium secondary to medical status and dehydration. Patient was not confused or agitated at time of encounter. Plan: 1) Delirium precautions 2) Maintain adequate hydration. 3) Avoid night-time interruptions. 4) PT evaluation and treatment. 5) Psychiatric assessment if behavior becomes agitated Patient is neurologically stable as per neuro Edema/Weakness "Heart Burn" Chest Pain/+ trops/NSTEMI AMS/Confusion DVT Diabetes HBP CAD/triple vessel disease with RCA PCI 12/23. COPD CHF Smoker GERD Gout HLD Blind OS Echo: Moderate MR and TR with severe PHt Pulm. tx., as per Dr. Porter. Continue cardiac meds: ASA, metoprolol, Lipitor, Diovan, Lasix. Since he will be on warfarin for DVT, will D/C Plavix at this time (11 months since RCA stents). got Lovenox to bridge to therapeutic warfarin. Close out-pt F/U for INR's/warfarin therapy. Cardiology F/U with Dr. Haile in 2 week as per cardio Discharge Exam - Head Exam Head Exam: ATRAUMATIC, NORMAL INSPECTION, NORMOCEPHALIC - Eye Exam Eye Exam: EOMI, Normal appearance, PERRL Pupil Exam: NORMAL ACCOMODATION, PERRL - GI/Abdominal Exam GI & Abdominal Exam: Normal Bowel Sounds - Rectal Exam Rectal Exam: NORMAL INSPECTION - Exam Exam: Circumcision, NORMAL INSPECTION External exam: NORMAL EXTERNAL EXAM Speculum exam: NORMAL SPECULUM EXAM Bimanual exam: NORMAL BIMANUAL EXAM - Neurological Exam Neurological exam: Alert, CN II-XII Intact, Normal Gait, Oriented x3, Reflexes Normal - Psychiatric Exam Psychiatric exam: Normal Affect, Normal Mood - Skin Skin Exam: Dry, Intact, Normal Color, Warm Discharge Plan - Discharge Medications Prescriptions: Doxycycline Hyclate [Doryx] 100 mg PO Q12 #10 cap predniSONE [predniSONE Tab] 20 mg PO DAILY #7 tab QUEtiapine [Seroquel] 25 mg PO HS PRN #30 tab PRN Reason: Psychosis, insomnia - Follow Up Plan Condition: STABLE Disposition: HOME/ ROUTINE Instructions: Warfarin (By mouth), Deep Venous Thrombosis (DC), COPD (Chronic Obstructive Pulmonary Disease) (DC) Additional Instructions: pt aware to call and schedule aptment with dr tuan schulte- [phone] COUMADIN DISCHARGE INSTRUCTIONS GIVEN TO PT-PT AWARE THAT DIETARY SOURCES OF VIT K CAN INTERFERE WITH COUMADIN AND TO AVID VIT K CONTAINING FOOD. TAKE MED SAME TIME EVERYDAY. AWARE TO GET BLOOK TET DONE REGUARLY AND FOLLOW UP WITH TO KEEP INR/PT IN [employer] RANGE. CALL DR FOR UNUSUAL BLEEDING OR BRUSING. AVOID SITTING, STANDING OR LING FOR LONG PERIODS WITHUT MOVNG YOUR LEGS OR FEET. WEAR COMPRESSION STOCKING AND ELEVATE LEGS. PT AWARE NOT TO START/ RESUME COUMADIN TILL THURS. PT TO SEE DR TUAN SCHULTE ON OFFICE..AWARE TO SEE DR PORTER IN 2 WEEKS AWARE TO NOT EAT LARGE AMT OF FOODS THAT ARE HIGH IN VIT K. Referrals: Taylor Portillo MD [Primary Care Provider] -
== END 2016-12-08 14:46 | disposition home or self-care (01) | DRG 286 ==
LOC: ED 10:51 → EROBSV 11:40 → ERH 17:09 → OBSVTOIN 17:09 → ERH 18:22 → 5RNO 19:00 → CCU 11-27 08:55 → 2RNO 11-28 08:02 → 2RSO 12-02 08:57 → 2RNO 12-02 16:25
PROVIDERS: ADMIT Internal Medicine; ATTEND Internal Medicine
PROC: 3E0F7GC Introduction of Other Therapeutic Substance into Respiratory Tract, Via Natural or Artificial Opening (ICD-10-PCS; 2016-11-25)
PROC: 4A023N7 Measurement of Cardiac Sampling and Pressure, Left Heart, Percutaneous Approach (ICD-10-PCS; principal; 2016-12-02)
PROC: B2111ZZ Fluoroscopy of Multiple Coronary Arteries using Low Osmolar Contrast (ICD-10-PCS; 2016-12-02)
PROC: B2151ZZ Fluoroscopy of Left Heart using Low Osmolar Contrast (ICD-10-PCS; 2016-12-02)
DX: I82.431 Acute embolism and thrombosis of right popliteal vein (principal); I82.441 Acute embolism and thrombosis of right tibial vein; J44.1 Chronic obstructive pulmonary disease with (acute) exacerbation; J11.00 Influenza due to unidentified influenza virus with unspecified type of pneumonia; F05 Delirium due to known physiological condition; I42.9 Cardiomyopathy, unspecified; I11.0 Hypertensive heart disease with heart failure; I50.9 Heart failure, unspecified; E83.42 Hypomagnesemia; E11.65 Type 2 diabetes mellitus with hyperglycemia; J44.0 Chronic obstructive pulmonary disease with (acute) lower respiratory infection; D50.9 Iron deficiency anemia, unspecified; F10.10 Alcohol abuse, uncomplicated; F17.210 Nicotine dependence, cigarettes, uncomplicated; I25.10 Atherosclerotic heart disease of native coronary artery without angina pectoris; K59.00 Constipation, unspecified; E87.6 Hypokalemia; N40.0 Benign prostatic hyperplasia without lower urinary tract symptoms; K21.9 Gastro-esophageal reflux disease without esophagitis; E78.00 Pure hypercholesterolemia, unspecified; E78.5 Hyperlipidemia, unspecified; M10.9 Gout, unspecified; I08.1 Rheumatic disorders of both mitral and tricuspid valves; I27.2 Other secondary pulmonary hypertension; E66.9 Obesity, unspecified; G47.30 Sleep apnea, unspecified; E86.0 Dehydration; M25.512 Pain in left shoulder; Z95.5 Presence of coronary angioplasty implant and graft; Z91.14 Patient's other noncompliance with medication regimen; Z79.82 Long term (current) use of aspirin; Z97.0 Presence of artificial eye

== ENCOUNTER 2017-04-10 12:30 | Inpatient (IN) | payer MEDICARE ==
--- NOTE | 2017-04-10 12:53 | ED PDOC ---
Arrival/HPI - General Chief Complaint: Cough, Cold, Congestion Time Seen by Provider: 04/10/17 12:33 Historian: Patient - History of Present Illness Narrative History of Present Illness (Text): 04/10/17 12:50 A 81 year old male, whose past medical history includes diabetes, COPD, CAD, hypertension, CHF, presents to the emergency department with 1 week duration productive cough with white colored sputum. The patient denies fevers, chills, headache, dizziness, chest pain, dyspnea on exertion, abdominal pain, nausea, vomiting, diarrhea, back pain, neck pain, urinary/bowel changes, or any other complaint. 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) - Renal Hx Renal Disorder: No - Endocrine/Metabolic Hx Diabetes Mellitus Type 2: Yes - Hematological/Oncological Hx Blood Transfusions: No Hx Blood Transfusion Reaction: No - Integumentary Hx Dermatological Disorder: No - Musculoskeletal/Rheumatological Hx Musculoskeletal Disorders: No - Gastrointestinal Hx Gastrointestinal Disorders: Yes (CONSTIPATION) - Genitourinary/Gynecological Hx Genitourinary Disorders: No - Psychiatric Hx Emotional Abuse: No Hx Physical Abuse: No Hx Substance Use: No - Surgical History Hx Cardiac Catheterization: Yes (2005, 2012) Other/Comment: CARDIAC CATH, WITH 1 STENT - Anesthesia Hx Anesthesia: Yes Hx Anesthesia Reactions: No Hx Malignant Hyperthermia: No - Suicidal Assessment Feels Threatened In Home Enviroment: No Family/Social History - Physician Review Nursing Documentation Reviewed: Yes Family/Social History: No Known Family HX Smoking Status: Heavy Smoker > 10 Cigarettes Daily Hx Alcohol Use: No Hx Substance Use: No Allergies/Home Meds Allergies/Adverse Reactions: Allergies Penicillins Allergy (Verified 04/10/17 12:47) RASH Home Medications: Home Meds Medication Instructions Recorded Confirmed Valsartan [Diovan] 320 mg PO DAILY 02/11/15 04/10/17 Febuxostat [Uloric] 40 mg PO DAILY 10/18/15 11/25/16 Montelukast [Singulair] 10 mg PO DAILY 10/18/15 04/10/17 Aspirin [Ecotrin] 81 mg PO DAILY 01/01/16 11/25/16 Rosuvastatin Calcium [Crestor] 10 mg PO DAILY 01/01/16 04/10/17 Meloxicam [Mobic] 15 mg PO DAILY 11/25/16 04/10/17 Metoprolol Succinate [Toprol XL] 25 mg PO DAILY 11/25/16 04/10/17 Seroquel XR 25 mg PO HS 12/08/16 04/10/17 Warfarin [Coumadin] 5 mg PO DAILY 12/08/16 04/10/17 Review of Systems - Physician Review All systems were reviewed & negative as marked: Yes - Review of Systems Constitutional: absent: Fevers, Night Sweats Respiratory: Cough (Productive cough), Sputum (White sputum). absent: SOB Cardiovascular: absent: Chest Pain, HUTTON Gastrointestinal: absent: Abdominal Pain, Stool Changes, Diarrhea, Vomiting Genitourinary Male: absent: Urinary Output Changes Musculoskeletal: absent: Back Pain, Neck Pain Neurological: absent: Headache, Dizziness Physical Exam Vital Signs Reviewed: Yes Vital Signs Temp Pulse Resp BP Pulse Ox 04/10/17 16:18 99.9 F H 04/10/17 16:17 99.9 F H 74 21 122/72 96 04/10/17 16:13 125/72 04/10/17 15:21 99.9 F H 04/10/17 14:21 101 F H 04/10/17 13:34 101.1 F H 77 17 119/67 97 04/10/17 12:37 98.9 F 72 20 119/67 96 Temperature: Afebrile Blood Pressure: Normal Pulse: Regular Respiratory Rate: Normal Appearance: Positive for: Well-Appearing, Non-Toxic, Comfortable Pain Distress: None Mental Status: Positive for: Alert and Oriented X 3 - Systems Exam Head: Present: Atraumatic, Normocephalic Pupils: Present: PERRL Extroacular Muscles: Present: EOMI Conjunctiva: Present: Normal Mouth: Present: Moist Mucous Membranes Neck: Present: Normal Range of Motion Respiratory/Chest: Present: Wheezes (Wheezing bilaterally) Cardiovascular: Present: Regular Rate and Rhythm, Normal S1, S2. No: Murmurs Abdomen: Present: Normal Bowel Sounds. No: Tenderness, Distention, Peritoneal Signs Back: Present: Normal Inspection Upper Extremity: Present: Normal Inspection. No: Cyanosis, Edema Lower Extremity: Present: Normal Inspection. No: Edema Neurological: Present: GCS=15, CN II-XII Intact, Speech Normal Skin: Present: Warm, Dry, Normal Color. No: Rashes Psychiatric: Present: Alert, Oriented x 3, Normal Insight, Normal Concentration Medical Decision Making ED Course and Treatment: 04/10/17 12:54 Impression: A 81 year old male presents to the emergency department with 1 week duration productive cough. ro copd chf pna- labs imaging pending Plan: -- EKG -- Chest X-ray -- Labs -- Urinalysis -- Blood Culture -- Duoneb and SOLU-Medrol -- Reassess and disposition Prior Visits: Notes and results from previous visits were reviewed. Patient was last seen in the emergency department on 11/25/2016. The patient was seen in the emergency department for a complaint of weakness with lower extremity edema. Progress Notes: EKG: Ordered, reviewed, and independently interpreted the EKG. Rate : 88 BPM Rhythm : NSR Interpretation : LBBB CHEST X-RAY Dictator : Mariposa Chino MD Report Date : 04/10/2017 14:49:52 IMPRESSION: Horizontal right-sided platelike atelectasis/scarring or fissural fluid, increased in extent. Moderate pulmonary venous congestion. Bilateral hilar prominence. Borderline cardiomegaly. Dense atherosclerotic calcifications of the aorta. 04/10/17 16:20 pt reassesed: pt requests dr shields seen by dr shields bedside. accepted for admission. - Lab Interpretations Lab Results: 04/10/17 13:35 04/10/17 13:35 Lab Results 04/10/17 15:00: Urine Color Yellow, Urine Appearance Clear, Urine pH 6.0, Ur Specific [place] 1.020, Urine Protein Trace H, Urine Glucose (UA) Negative, Urine Ketones Negative, Urine Blood Trace-lysed H, Urine Nitrate Negative, Urine Bilirubin Negative, Urine Urobilinogen 1.0 H, Ur Leukocyte Esterase Negative, Urine RBC 2 - 5, Urine WBC 0 - 2, Ur Epithelial Cells None, Urine Bacteria Few 04/10/17 13:41: POC Glucose (mg/dL) 116 H 04/10/17 13:35: Sodium 138, Chloride 105, Potassium 3.7, Carbon Dioxide 25, Anion Gap 12, BUN 13, Creatinine 0.8, Est GFR ( Amer) > 60, Est GFR (Non- Af Amer) > 60, Random Glucose 113 H, Calcium 10.0, Magnesium 1.9, Total Bilirubin 0.9, AST 29, ALT 44, Alkaline Phosphatase 110, Lactate Dehydrogenase 393, Total Creatine Kinase 53, Troponin I 0.01 D, NT-Pro-B Natriuret Pep 1250 H , Total Protein 7.0, Albumin 3.6, Globulin 3.5, Albumin/Globulin Ratio 1.0 L 04/10/17 13:35: PT 21.1 H, INR 1.89 H, APTT 36.9 H 04/10/17 13:35: WBC 8.6, RBC 4.11, Hgb 12.6 L, Hct 38.7 L, MCV 94.2, MCH 30.7, MCHC 32.6, RDW 13.9, Plt Count 198, MPV 9.8, Gran % 82.9 H, Lymph % (Auto) 8.1 L , Jones % (Auto) 8.8 H, Eos % (Auto) 0.1 L, Baso % (Auto) 0.1, Gran # 7.12 H, Lymph # 0.7 L, Jones # 0.8 H, Eos # 0.0, Baso # 0.01 04/10/17 13:35: pO2 121 H, VBG pH 7.40, VBG pCO2 43.0, VBG HCO3 26.6, VBG Total CO2 27.9, VBG O2 Sat (Calc) 99.6 H, VBG Base Excess 1.5, VBG Potassium 3.7, Sodium 138.0, Chloride 104.0, Glucose 114 H, Lactate 0.9, FiO2 21.0, Venous Blood Potassium 3.7 I have reviewed the lab results: Yes - RAD Interpretation Radiology Orders: 04/10/17 12:50 CHEST PORTABLE [RAD] Stat - EKG Interpretation Interpreted by ED Physician: Yes Type: 12 lead EKG - Medication Orders Current Medication Orders: Discontinued Medications Acetaminophen (Tylenol 325mg Tab) 975 mg PO STAT STA Stop: 04/10/17 13:42 Last Admin: 04/10/17 14:21 Dose: 975 mg MAR Pain/Vitals Document 04/10/17 14:21 GMI (Rec: 04/10/17 14:22 GMI [id number]) Pain Reassessment Is This A Pain ReAssessment? Yes Sleep Is patient sleeping during reassessment? No Presence of Pain Presence of Pain No Pain Scale Used Pain Scale Used Numeric Vitals Temperature (97.6 F-99.6 F) 101 F Temperature Source Rectal Re-Assess: MAR Pain/Vitals Document 04/10/17 15:21 GMI (Rec: 04/10/17 16:05 GMI [id number]) Pain Reassessment Is This A Pain ReAssessment? No Sleep Is patient sleeping during reassessment? No Presence of Pain Presence of Pain No Vitals Temperature (97.6 F-99.6 F) 99.9 F Albuterol/Ipratropium (Duoneb 3 Mg/0.5 Mg (3 Ml) Ud) 3 ml IH Q15M GUNNER Stop: 04/10/17 13:31 Last Admin: 04/10/17 13:49 Dose: 3 ml Furosemide (Lasix) 40 mg IVP STAT STA Stop: 04/10/17 15:40 Last Admin: 04/10/17 16:13 Dose: 40 mg MAR Blood Pressure Document 04/10/17 16:13 GMI (Rec: 04/10/17 16:13 GMI [id number]) Blood Pressure Blood Pressure (100/60-150/90) 125/72 IVP Administration Document 04/10/17 16:13 GMI (Rec: 04/10/17 16:13 GMI [id number]) Charges for Administration # of IVP Administrations 1 Ciprofloxacin (Cipro 400mg/200ml Dsw) 400 mg in 200 mls @ 133.3 mls/hr IVPB STAT STA PRN Reason: Protocol Stop: 04/10/17 15:12 Last Admin: 04/10/17 14:00 Dose: 133.3 mls/hr eMAR Start Stop Document 04/10/17 14:00 GMI (Rec: 04/10/17 14:22 GMI [id number]) Intravenous Solution Start Date 04/10/17 Start Time 14:00 End Date 04/10/17 End time 15:35 Total Infusion Time 95 Vancomycin HCl (Vancomycin 1gm) 1 gm in 250 mls @ 167 mls/hr IVPB STAT STA PRN Reason: Protocol Stop: 04/10/17 15:11 Last Admin: 04/10/17 16:06 Dose: 167 mls/hr eMAR Start Stop Document 04/10/17 16:06 GMI (Rec: 04/10/17 16:06 GMI [id number]) Intravenous Solution Start Date 04/10/17 Start Time 16:06 Methylprednisolone (Solu-Medrol) 125 mg IVP STAT STA Stop: 04/10/17 12:51 Last Admin: 04/10/17 13:48 Dose: 125 mg IVP Administration Document 04/10/17 13:48 GMI (Rec: 04/10/17 13:48 GMI [id number]) Charges for Administration # of IVP Administrations 1 - Scribe Statement The provider has reviewed the documentation as recorded by the Scribe Jennifer Estrada Provider Scribe Attestation: All medical record entries made by the Scribe were at my direction and personally dictated by me. I have reviewed the chart and agree that the record accurately reflects my personal performance of the history, physical exam, medical decision making, and the department course for this patient. I have also personally directed, reviewed, and agree with the discharge instructions and disposition. Disposition/Present on Arrival - Present on Arrival Any Indicators Present on Arrival: No History of DVT/PE: Yes History of Uncontrolled Diabetes: Yes Urinary Catheter: No History of Decub. Ulcer: No History Surgical Site Infection Following: None - Disposition Have Diagnosis and Disposition been Completed?: Yes Diagnosis: CAD (coronary artery disease), COPD with acute exacerbation, COPD (chronic obstructive pulmonary disease), Pneumonia Disposition: HOSPITALIZED Disposition Time: 04:00 Patient Problems: Current Active Problems Problem Status Onset COPD (chronic obstructive pulmonary disease) Acute COPD with acute exacerbation Acute Pneumonia Acute Condition: FAIR Referrals: Taylor Portillo MD [Primary Care Provider] - Follow up with primary Forms: [employer]wo[employer] (Azeri)
[2017-04-10] MEDS: Albuterol-Ipratrop 3 mg / 0.5 (3 ml) UD IH SCH ×4 (13:00→19:48)
[2017-04-10] MEDS ORDERED: Vancomycin 1gm in NS 250ml 1 GM/250 ML BAG IVPB STA (13:42)
[2017-04-10] MEDS ORDERED: Ciprofloxacin 400mg/200ml D5W 400 MG/200 ML BAG IVPB STA (13:42)
[2017-04-10 14:02] LABS: BASO # 0.01 K/mm3 (0.0-2.0); BASO % 0.1 % (0.0-3.0); EOS % 0.1 % (1.5-5.0); GRAN # 7.12 (1.4-6.5); GRAN % 82.9 % (50.0-68.0); HEMATOCRIT 38.7 % (42.0-52.0); LYMPH # 0.7 (1.2-3.4); LYMPH % 8.1 % (22.0-35.0); MEAN CELL VOLUME 94.2 fl (80.0-105.0); MEAN CORPUSCULAR HEMOGLOBIN 30.7 pg (25.0-35.0); MEAN CORPUSCULAR HGB CONC 32.6 g/dl (31.0-37.0); MEAN PLATELET VOLUME 9.8 fl (7.0-11.0); MONO # 0.8 (0.1-0.6); MONO % 8.8 % (1.0-6.0); RED CELL DISTRIBUTION WIDTH 13.9 % (11.5-14.5); WHITE BLOOD COUNT 8.6 10^3/ul (4.5-11.0)
[2017-04-10 14:08] LABS: ALKALINE PHOSPHATASE 110 U/L (38-126); ALT/SGPT 44 U/L (7-56); AST/SGOT 29 U/L (17-59); BILIRUBIN,TOTAL 0.9 mg/dL (0.2-1.3); BLOOD UREA NITROGEN 13 mg/dL (7-21); CARBON DIOXIDE 25 mmol/L (21-33); CHLORIDE 105 mmol/L (98-107); GFR AFRICAN-AMERICAN > 60; GLUCOSE,RANDOM 113 mg/dL (70-110); MAGNESIUM 1.9 mg/dL (1.7-2.2); POTASSIUM 3.7 mmol/L (3.6-5.0); SODIUM 138 mmol/L (132-148)
[2017-04-10 14:09] LABS: VENOUS BLOOD GAS BASE EXCESS 1.5 mmol/L (0.0-2.0)
[2017-04-10 14:24] LABS: INR 1.89 (0.93-1.08); PARTIAL THROMBOPLASTIN TIME 36.9 Seconds (25.1-36.5)
[2017-04-10 14:38] LABS: TROPONIN I 0.01 ng/mL
--- NOTE | 2017-04-10 14:51 | RAD ---
HISTORY: cough COMPARISON: Chest x-ray performed 11/25/16 TECHNIQUE: Chest, one view. FINDINGS: Examination limited by habitus. LUNGS: Horizontal right-sided platelike atelectasis/scarring or fissural fluid, increased in extent. Moderate pulmonary venous congestion. Bilateral hilar prominence. Please note that chest x-ray has limited sensitivity for the detection of pulmonary masses. PLEURA: No significant pleural effusion identified. No definite pneumothorax . CARDIOVASCULAR: Borderline cardiomegaly. Dense atherosclerotic calcifications of the aorta. OSSEOUS STRUCTURES: Degenerative changes. VISUALIZED UPPER ABDOMEN: Elevation of the left hemidiaphragm. OTHER FINDINGS: None. IMPRESSION: Horizontal right-sided platelike atelectasis/scarring or fissural fluid, increased in extent. Moderate pulmonary venous congestion. Bilateral hilar prominence. Borderline cardiomegaly. Dense atherosclerotic calcifications of the aorta.
[2017-04-10 15:43] LABS: URINE BILIRUBIN NEGATIVE (NEGATIVE); URINE BLOOD TRACE-LYSED (NEGATIVE); URINE GLUCOSE (UA) NEGATIVE (NEGATIVE); URINE KETONE NEGATIVE (NEGATIVE); URINE LEUKOCYTE ESTERASE NEGATIVE Leu/uL (NEGATIVE); URINE PROTEIN TRACE mg/dL (<30 mg/dL)
[2017-04-10 15:49] LABS: URINE APPEARANCE CLEAR (CLEAR); URINE COLOR YELLOW (YELLOW)
[2017-04-10 16:01] LABS: URINE WBC 0 - 2 /hpf (0-6)
[2017-04-10 16:02] LABS: URINE BACTERIA FEW (NEG)
[2017-04-10 18:27] VITALS: BMI 33.9
[2017-04-10] MEDS ORDERED: Influenza Vaccine 60 mcg/0.5 mL SYR (4YR UP) IM ONE (18:27)
[2017-04-10] MEDS ORDERED: Pneumococcal 23-Valent Vaccine IM ONE (18:27)
[2017-04-10] MEDS ORDERED: Albuterol-Ipratrop 3 mg / 0.5 (3 ml) UD IH SCH (20:00)
--- NOTE | 2017-04-10 21:42 | CARD ---
APPROVED REPORT EKG Measurement Heart [id number] <Conclusion> Sinus rhythm with occasional premature ventricular complexes Left axis deviation Left bundle branch block Abnormal ECG
[2017-04-10] MEDS: MethylPREDNISolone 40 mg Vial IVP SCH (21:59)
[2017-04-10] MEDS ORDERED: Ciprofloxacin 200mg/100ml D5W 100 ML IVPB SCH (22:00)
[2017-04-10] MEDS: Insulin Reg-LOW-Coverage SC SCH (23:01)
[2017-04-11] MEDS: Albuterol-Ipratrop 3 mg / 0.5 (3 ml) UD IH SCH ×4 (01:52→19:33)
[2017-04-11] MEDS: Insulin Reg-LOW-Coverage SC SCH ×4 (08:04→22:42)
[2017-04-11] MEDS: Metoprolol Succinate 25 mg XL Tab PO SCH (09:44)
[2017-04-11] MEDS: MethylPREDNISolone 40 mg Vial IVP SCH ×2 (09:46→21:36)
[2017-04-11] MEDS ORDERED: Non Formulary Medication (Rosuvastatin Calcium [Crestor] 10 MG) PO SCH (10:00)
[2017-04-11] MEDS ORDERED: Non Formulary Medication (Febuxostat [Uloric] 40 MG) PO SCH (10:00)
[2017-04-11] MEDS: guaiFENesin-Codeine 100-10mg/5ml Syrup (5 ml) UD PO PRN (21:36)
--- NOTE | 2017-04-11 22:58 | PN ---
DATE: SUBJECTIVE: The patient was seen and examined on the bedside, looking comfortable, still complaining of coughing, cold, congestion. No nausea, vomiting, or diarrhea. No hematuria. No hematochezia. No swelling of the legs. No chest pain. No palpitation. No headache. No dizziness. No fever. No chills. Cough is productive, sputum is white color. No abdominal pain, no nausea and no stool changes. No urinary output changes. No back pain. No neck pain. PHYSICAL EXAMINATION VITAL SIGNS: Temperature 97.6, pulse 68, blood pressure 143/83 and respiratory rate 20. HEENT: Head is normocephalic and atraumatic. Eyes; PERRLA. Extraocular muscles are intact. Conjunctivae clear. Nose patent. Mucous membranes moist. NECK: Supple. No carotid bruits, JVD, or thyromegaly. CHEST: Bilaterally symmetrical. Heart; S1 and S2 positive. LUNGS: Clear to auscultation. ABDOMEN: Soft. Bowel sounds present. No organomegaly. EXTREMITIES: No edema. No cyanosis. NEUROLOGIC: The patient is awake and alert. Moving all four extremities. No focal deficits. LABORATORY DATA: White blood cell 8.6, hemoglobin 12.6, hematocrit 38.7 and platelets 198. Sodium 138, potassium 3.7, BUN 13, creatinine 0.8 and glucose 116. MEDICATIONS: Colace, Coumadin, Diovan, DuoNeb, Ecotrin, Uloric, Flomax, Glucophage, Lasix, Lipitor, Robitussin, Seroquel, Singulair, Solu-Medrol and Toprol. ASSESSMENT AND PLAN: Mr. 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 Gastrointestinal and deep venous thrombosis prophylaxis. Repeat labs. We will follow. Bessie Sanders MD [facility] # [id number]
[2017-04-12] MEDS: Albuterol-Ipratrop 3 mg / 0.5 (3 ml) UD IH SCH ×2 (01:04→07:24)
[2017-04-12 01:05] VITALS: RESP 19; TEMP 98.2
--- NOTE | 2017-04-12 03:51 | CON ---
PULMONARY CONSULTATION DATE OF SERVICE: 04/11/2017 REFERRING PHYSICIAN: Dr. Sanders. REASON FOR CONSULTATION: Cough, shortness of breath, chronic lung disease. HISTORY OF PRESENT ILLNESS: This is a 81-year-old gentleman, known to me from previous admission, noncompliant with followup and advised about smoking, has a history of diabetes, chronic obstructive lung disease, coronary artery disease, hypertension, cardiomyopathy, and having cough and shortness of breath. No fever. No chills. No hemoptysis. No hematemesis. No hematuria. No diarrhea reported. PAST MEDICAL HISTORY: Chronic obstructive lung disease, diabetes, coronary artery disease, hypertension. PAST SURGICAL HISTORY: Has a history of cardiac cath with coronary stent in the past. ALLERGIES: PENICILLIN TO DEVELOP RASH. SOCIAL HISTORY: Active smoker, denying alcohol use. FAMILY HISTORY: No significant cardiopulmonary disease reported. MEDICATIONS: He is on Colace 100 mg 3 times a day, Coumadin 5 mg will be given tonight, Diovan 320 mg daily, DuoNeb q.6 hours, Ecotrin 81 mg daily, Uloric 40 mg daily, Flomax 0.4 mg daily, metformin 500 mg daily, Lasix 40 mg daily, Lipitor 40 mg daily, Robitussin with Codeine 5 mL q.4 hours p.r.n., Seroquel 25 mg at bedtime p.r.n., Singulair 10 mg daily, Solu-Medrol 40 mg q.12 hours, Toprol-XL 25 mg daily. REVIEW OF SYSTEMS: No headache. No rhinitis. Admits to have snoring, daytime sleepy and tired, cough, shortness of breath. No chest pain. No nausea. No vomiting. No diarrhea. No significant leg swelling. PHYSICAL EXAMINATION: GENERAL: Lying in the bed, mild distress secondary to cough and shortness of breath. VITAL SIGNS: Temperature is 98, heart rate is 76, respiratory rate is 20, blood pressure is 114/58, pulse oximetry is 97% on 2 liters nasal cannula. HEENT: Moist mucous membranes. Crowded airway. Mallampati score is 4. NECK: Supple. No JVD. LUNGS: Has a prolonged expiratory phase of wheezing. HEART: S1 and S2. ABDOMEN: Soft and nontender, no organomegaly. EXTREMITIES: Not much edema. NEUROLOGIC: Awake, alert, follows simple commands. LABORATORY DATA: Shows hemoglobin 12.6, hematocrit 38.7, WBC 8.6, platelet is 198, INR 1.89, PTT is 37. VBG showed pH 7.40, pCO2 43, pO2 121. Blood sugar is 205. Sodium 138, potassium 3.7, chloride 105, bicarbonate 25, BUN 13, creatinine 0.8, glucose 113, calcium 10.0, magnesium 1.9, AST 29, ALT 44, alkaline phosphatase is 110, troponin 0.01, proBNP is 1250, albumin is 3.6. Influenza A and B have been negative. Microbiology, blood cultures are negative. Chest x-ray done on admission shows right-sided platelet atelectasis versus scarring or fluid in the fissure, moderate pulmonary vascular congestion, bilateral hilar prominence, cardiomegaly. IMPRESSION AND PLAN: Exacerbation of chronic obstructive lung disease that could be a component of heart failure, history of myocardial infarction, coronary artery disease, history of coronary stent, hypertension, diabetes, gastroesophageal reflux disease, and sleep apnea syndrome. Case was discussed with the family at bedside. All the questions were answered. Spoke to nursing staff. Robitussin DM is added on a p.r.n. basis. Continue steroids, antibiotics, diuretics. Continue anticoagulation. We will get proBNP and procalcitonin in the morning. The patient is advised to stop smoking. Again, we will recommend sleep study upon discharge as an outpatient. Thank you and we will follow with you. Krista Porter MD
[2017-04-12 06:32] VITALS: O2SAT 96
--- NOTE | 2017-04-12 09:38 | HP ---
The patient was seen and examined on 04/10/2017 in the emergency room. CHIEF COMPLAINT: Coughing, cold and congestion. HISTORY OF PRESENT ILLNESS: Mr. Carlitos Bolivar is a 81-year-old male with past medical history of diabetes mellitus, COPD, coronary artery disease, hypertension, congestive heart failure, came to the emergency department with one-week duration of production of cough with white-colored sputum. The patient denies fever, chills, headache, dizziness, chest pain, dyspnea on exertion, abdominal pain, nausea, vomiting, diarrhea, back pain, neck pain, urinary and bowel changes. No fever. No chills. 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 FAMILY HISTORY: Father and mother noncontributory. HABITS: Heavy smoker, more than 10 cigarette a day. No Alcohol. No substance. ALLERGIES: ALLERGIC TO PENICILLIN. HOME MEDICATIONS: Diovan, Uloric, Singulair, Ecotrin, Crestor, Mobic, metoprolol, Seroquel and Coumadin. REVIEW OF SYSTEMS: The patient was seen and examined on the bedside, looking comfortable. No nausea, vomiting or diarrhea. No hematuria or hematochezia. No swelling of the legs. No chest pain. PHYSICAL EXAMINATION: VITAL SIGNS: Temperature 99, pulse 79, blood pressure 127/72 and respiratory rate 18. HEENT: Head; normocephalic and atraumatic. Eyes; PERRLA. Extraocular muscles intact. Conjunctivae clear. Nose patent. NECK: Supple. No carotid bruit. No JVD or thyromegaly. CHEST: Bilaterally symmetrical. HEART: S1 and S2 positive. LUNGS: Clear to auscultation. ABDOMEN: Soft. Bowel sounds present. No organomegaly. EXTREMITIES: No edema. No cyanosis. NEUROLOGICAL: The patient is awake, alert. Moving all 4 extremities. No focal deficits. LABORATORY DATA: White blood count 8.6, hemoglobin 12.6, hematocrit 38.7 and platelets 198. Sodium 130, potassium 3.7, BUN 30, creatinine 0.8 and glucose 115. BNP was 1250. ASSESSMENT AND PLAN: Mr. 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 Pulmonary consult called by Dr. Porter. Gastrointestinal and deep venous thrombosis prophylaxis. Repeat labs. We will follow up. Bessie Sanders MD
[2017-04-12] MEDS: Metoprolol Succinate 25 mg XL Tab PO SCH (09:41)
[2017-04-12] MEDS: MethylPREDNISolone 40 mg Vial IVP SCH (09:42)
[2017-04-12 09:43] VITALS: BP 139/48; PULSE 81
[2017-04-12] MEDS: Insulin Reg-LOW-Coverage SC SCH (09:43)
[2017-04-12] MEDS: guaiFENesin-Codeine 100-10mg/5ml Syrup (5 ml) UD PO PRN (09:49)
--- NOTE | 2017-04-13 12:34 | DS ---
The patient was admitted on 04/10/2017, left against medical advice on 04/12/2017. CHIEF COMPLAINT: Coughing, cold, and congestion. HISTORY OF PRESENT ILLNESS: Mr. Osmel Urbina is a 81-year-old male who came in at [facility] on 04/10/2017, has history of diabetes mellitus, COPD, coronary artery disease, hypertension, congestive heart failure, for about 1 week bringing phlegm and white colored sputum. No fever. No chills. No headache. No dizziness. No chest pain or dyspnea on exertion. No abdominal pain. No hematuria. No hematochezia. We admitted the patient and did chest x-rays. Antibiotics and inhalers given. Seen by pulmonology, Dr. Porter. The patient was getting treatment. Finally, he decided to leave against medical advice. Education was done, but still he left, promised to follow up in closet builder's and primary care physician's office. PAST MEDICAL HISTORY: COPD. The patient is blind, left eye prosthesis, diabetes mellitus type 2, history of constipation, and cardiac catheterization. FAMILY HISTORY: Father and mother, noncontributory. HABITS: History of heavy smoking, more than 10 cigarettes a day. No alcohol. No substance abuse. ALLERGIES: THE PATIENT IS ALLERGIC TO PENICILLIN. MEDICATIONS: Home medications are reviewed by me. REVIEW OF SYSTEMS: The patient is seen and examined at the bedside. Looking comfortable. No nausea, vomiting, or diarrhea. No hematuria or hematochezia. No headache. No dizziness. No fever. No chills. PHYSICAL EXAMINATION: VITAL SIGNS: Temperature 98.2, pulse 81, blood pressure 139/48, respiratory rate is 19. HEENT: Head, normocephalic and atraumatic. Eyes; PERRLA. Conjunctivae clear. Nose patent. Mucous membranes moist. NECK: Supple. No carotid bruit, JVD, or thyromegaly. CHEST: Bilaterally symmetrical. HEART: S1 and S2 positive. LUNGS: Clear to auscultation. ABDOMEN: Soft. Bowel sounds present. No organomegaly. EXTREMITIES: No edema. No cyanosis. NEUROLOGICAL: The patient is awake, alert. Moving all 4 extremities. No focal deficits. LABORATORY DATA: White blood cells 8.6, hemoglobin 12.6, hematocrit 38.7, platelets 198. Sodium 138, potassium 3.7, BUN 13, creatinine 0.8, glucose of 115. ASSESSMENT AND PLAN: Mr. Osmel Urbina is a 81-year-old male with anemia, hyperglycemia, proteinuria, hematuria, came with congestion, coughing with phlegm, seen by the closet builder, Dr. Porter. He is a known case of noncompliance, still smoking, chronic obstructive lung disease, coronary artery disease, cardiomyopathy, maybe he has congestive heart failure, gastroesophageal reflux disease, and sleep apnea syndrome. Robitussin DM is given by Dr. Porter; steroids, antibiotics, diuretics given. Continue anticoagulation. The patient has decided to go against medical advice, urged to stay, education done, even nursing staff and nurse practitioner, Ana Maria Alcala. Repeat labs. We will follow up. Bessie Sanders MD
== END 2017-04-12 11:23 | disposition left against medical advice (07) | DRG 192 ==
LOC: ED 12:30 → ERH 15:40 → 2RSO 17:17
PROVIDERS: ADMIT Internal Medicine; ATTEND Internal Medicine
DX: J44.1 Chronic obstructive pulmonary disease with (acute) exacerbation (principal); E11.65 Type 2 diabetes mellitus with hyperglycemia; I11.0 Hypertensive heart disease with heart failure; I50.9 Heart failure, unspecified; D64.9 Anemia, unspecified; F17.210 Nicotine dependence, cigarettes, uncomplicated; H54.62 Unqualified visual loss, left eye, normal vision right eye; M10.9 Gout, unspecified; N40.0 Benign prostatic hyperplasia without lower urinary tract symptoms; I25.10 Atherosclerotic heart disease of native coronary artery without angina pectoris; K59.00 Constipation, unspecified; K21.9 Gastro-esophageal reflux disease without esophagitis; G47.30 Sleep apnea, unspecified; Z79.82 Long term (current) use of aspirin; Z79.84 Long term (current) use of oral hypoglycemic drugs; Z88.0 Allergy status to penicillin; Z79.01 Long term (current) use of anticoagulants; Z91.19 Patient's noncompliance with other medical treatment and regimen; Z95.5 Presence of coronary angioplasty implant and graft; I25.2 Old myocardial infarction

== ENCOUNTER 2018-05-24 10:15 | Inpatient (IN) | payer MEDICARE ==
[2018-05-24 10:16] VITALS: BMI 33.9
[2018-05-24] MEDS ORDERED: Albuterol-Ipratrop 3 mg / 0.5 (3 ml) UD IH STA (10:34)
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
[2018-05-24 10:47] LABS: VENOUS BLOOD GAS BASE EXCESS 1.5 mmol/L (0.0-2.0); VENOUS BLOOD GAS PO2 153 mm/Hg (30-55)
--- NOTE | 2018-05-24 10:59 | RAD ---
Date of service: 05/24/2018 HISTORY: cough/sob COMPARISON: 04/10/2017 FINDINGS: LUNGS: The lungs are well inflated. There is improving atelectasis/pneumonia in the right upper lobe. There is bibasilar atelectasis. Again seen is mild pulmonary venous congestion. PLEURA: No pleural effusions or pneumothorax. CARDIOVASCULAR: Mild cardiomegaly with prominent central vasculature. There are aortic atherosclerotic calcifications present. OSSEOUS STRUCTURES: Within normal limits for the patient's age. VISUALIZED UPPER ABDOMEN: Normal. OTHER FINDINGS: None. IMPRESSION: Improving right upper lobe atelectasis/pneumonia. Persistent cardiomegaly and prominent central vasculature with mild pulmonary venous congestion.
[2018-05-24 11:04] LABS: BASO # 0.02 K/mm3 (0.0-2.0); BASO % 0.3 % (0.0-3.0); EOS # 0.1 (0.0-0.7); EOS % 0.8 % (1.5-5.0); GRAN # 4.44 (1.4-6.5); GRAN % 69.9 % (50.0-68.0); HEMOGLOBIN 13.2 g/dL (14.0-18.0); LYMPH # 1.3 (1.2-3.4); LYMPH % 20.3 % (22.0-35.0); MEAN CELL VOLUME 96.1 fl (80.0-105.0); MEAN CORPUSCULAR HEMOGLOBIN 31.8 pg (25.0-35.0); MEAN CORPUSCULAR HGB CONC 33.1 g/dl (31.0-37.0); MEAN PLATELET VOLUME 9.7 fl (7.0-11.0); MONO # 0.6 (0.1-0.6); MONO % 8.7 % (1.0-6.0); RBC 4.15 10^6/uL (3.5-6.1); RED CELL DISTRIBUTION WIDTH 13.8 % (11.5-14.5); WHITE BLOOD COUNT 6.4 10^3/uL (4.5-11.0)
[2018-05-24 11:12] LABS: ALB/GLOB RATIO 1.1 (1.1-1.8); ALBUMIN 3.9 g/dL (3.0-4.8); ALT/SGPT 44 U/L (7-56); AST/SGOT 40 U/L (17-59); BLOOD UREA NITROGEN 12 mg/dL (7-21); CALCIUM 10.2 mg/dL (8.4-10.5); GFR NON-AFRICAN AMERICAN > 60
[2018-05-24 11:13] LABS: INR 1.9; PARTIAL THROMBOPLASTIN TIME 33.4 Seconds (25.1-36.5); PROTHROMBIN TIME 22.1 SECONDS (9.4-12.5)
[2018-05-24] MEDS ORDERED: Potassium Chloride 20 mEq ER Tab PO STA ×2 (11:19→18:52)
[2018-05-24] MEDS ORDERED: Magnesium Sulfate 2 gm/50 ml 2 GM/50 ML BAG IVPB ONE (11:19)
[2018-05-24 11:24] LABS: B-TYPE NATRIURETIC PEPTIDE 1090 pg/mL (0-450); TROPONIN I < 0.01 ng/mL
[2018-05-24] MEDS ORDERED: MEROPENEM 500 MG in NS 500 MG/50 ML BAG IVPB STA (11:32)
--- NOTE | 2018-05-24 14:32 | CON ---
DATE: 05/24/2018 REFERRING PHYSICIAN: Dr. Sanders. REASON FOR CONSULT: Cough, shortness of breath, chronic obstructive lung disease. HISTORY OF PRESENT ILLNESS: This is an 82 years old gentleman, known to me from past admission, which was in 04/2017, known to have a chronic obstructive lung disease, active smoker, diabetes, coronary artery disease, hypertension, cardiomyopathy, in the left eye, comes in with cough, shortness of breath, sputum production for the last few days. No body aches. No high fever, on and off mild headache. No nausea, no vomiting, no diarrhea. Has trace leg swelling. PAST MEDICAL HISTORY: As per history of present illness. ALLERGIES: TO PENICILLIN, DEVELOPED RASH. SOCIAL HISTORY: Active smoker. Denies any alcohol use. FAMILY HISTORY: No significant cardiopulmonary disease reported. MEDICATIONS: Since admission he received Lasix, magnesium, meropenem, Solu-Medrol, and DuoNeb. HOME MEDICATIONS: Include Coumadin mg daily, Flomax 0.4 mg daily, Aldactone 25 mg daily, Crestor 10 mg daily, Protonix 40 mg daily, Singulair 10 mg daily, metoprolol succinate 25 mg daily, metformin 500 mg daily, losartan 100 mg daily, doxycycline 100 mg twice a day, Plavix 75 mg daily, cetirizine 10 mg daily, aspirin 81 mg daily. REVIEW OF SYSTEMS: Presently no headache, no rhinitis. Has a cough, shortness of breath, sputum production, wheezing. No nausea, no vomiting, no diarrhea. Does have trace leg swelling. PHYSICAL EXAMINATION: GENERAL: Lying in the bed, in no acute distress. VITAL SIGNS: Temperature is 98, heart rate is 85, respiratory rate is 22, blood pressure 149/74, pulse ox 96% on room air. HEENT: Moist mucous membrane. Crowded airway. Mallampati score is 4. NECK: Supple. No JVD. LUNGS: Have bilateral wheezing and rhonchi. HEART: S1, S2. ABDOMEN: Soft, nontender. No organomegaly. EXTREMITIES: Trace edema. NEUROLOGIC: Neurologically awake, alert, follows simple commands. LABORATORY DATA: Shows hemoglobin 13.2, hematocrit 39.9, WBC of 6.4, platelet is 198. INR 1.9. PTT is 33. Has a VBG done, which shows pH 7.4, pCO2 is 43, O2 is 153 that is on supplemental oxygen. Sodium 140, potassium 3.4, chloride 105, bicarbonate 27, BUN 12, creatinine 0.9, glucose 117, calcium is 10, magnesium is 1.5, AST 40, ALT 44, alk phos is 98. Troponin less than 0.01. ProBNP 1090. Albumin 3.9. Urinalysis shows some protein is trace, lysed blood cells, wbc's 0.2. Chest x-ray done in ER shows improved right upper lobe atelectasis/pneumonia, persistent cardiomegaly and prominent central vascular congestion. IMPRESSION AND PLAN: Exacerbation of chronic obstructive lung disease, rule out cardiac component for short of breath, history of myocardial infarction in the past, coronary artery disease, history of coronary stent, hypertension, diabetes, gastroesophageal reflux disease, may have sleep apnea syndrome, active smoker. The patient educated about smoking and risk, expressed understanding. We will add IV Solu-Medrol, inhaled bronchodilator. we will add procalcitonin for the morning. Gastric prophylaxis. Continue anticoagulation. We will check medical record if he has any echo done to evaluate right heart function and rule out pulmonary hypertension, sleep apnea precaution. The patient urged to get attend a sleep study upon discharge as outpatient, PFT as outpatient. Thank you and we will follow with you. Krista Porter MD
[2018-05-24] MEDS: Pantoprazole 40 mg EC Tab PO SCH (16:51)
[2018-05-24] MEDS: Budesonide 0.5 mg/2 ml Inhal Susp UD IH SCH (16:51)
[2018-05-24] MEDS: Acetylcysteine 20% Inhal Soln (4ml) INH SCH (18:23)
--- NOTE | 2018-05-24 19:05 | US ---
HISTORY: Leg pain and swelling. Evaluate for DVT PHYSICIAN(S): Tyron Mcmullen MD. TECHNIQUE: Duplex sonography and color-flow Doppler with graded compression were used to evaluate the deep venous systems of both lower extremities. FINDINGS: The visualized deep venous systems of both lower extremities are sonographically normal and compressible. Normal wave forms and augmentation are seen. There is no sonographic evidence for deep venous thrombosis in the visualized segments of both lower extremities. IMPRESSION: No sonographic evidence for deep venous thrombosis in the visualized segments of both lower extremities.
[2018-05-24] MEDS ORDERED: Influenza Vaccine 60 mcg/0.5 mL SYR (4YR UP) IM ONE (22:19)
[2018-05-24] MEDS ORDERED: Pneumococcal 23-Valent Vaccine IM ONE (22:19)
[2018-05-24] MEDS: MethylPREDNISolone 40 mg Vial IVP SCH (22:22)
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
[2018-05-25 07:34] LABS: ALB/GLOB RATIO 1.1 (1.1-1.8); ALBUMIN 3.4 g/dL (3.0-4.8); ALT/SGPT 46 U/L (7-56); AST/SGOT 22 U/L (17-59); BLOOD UREA NITROGEN 16 mg/dL (7-21); CALCIUM 10.2 mg/dL (8.4-10.5); GFR NON-AFRICAN AMERICAN > 60
--- NOTE | 2018-05-25 07:42 | CARD ---
APPROVED REPORT Date of service: 05/24/2018 EKG Measurement Heart [id number] <Conclusion> Sinus rhythm with PVC LBBB No change
[2018-05-25] MEDS: Acetylcysteine 20% Inhal Soln (4ml) INH SCH ×3 (08:03→20:58)
[2018-05-25] MEDS: Arformoterol 15 mcg/2 ml Inh Sol IH SCH ×3 (08:03→21:47)
[2018-05-25] MEDS: Budesonide 0.5 mg/2 ml Inhal Susp UD IH SCH ×4 (08:04→21:46)
[2018-05-25] MEDS: MethylPREDNISolone 40 mg Vial IVP SCH ×2 (09:08→21:50)
[2018-05-25] MEDS: Cholecalciferol 1,000 INTLU TAB PO SCH (09:08)
[2018-05-25] MEDS: Pantoprazole 40 mg EC Tab PO SCH (09:08)
[2018-05-25] MEDS: Potassium Chloride 20 mEq ER Tab PO SCH (09:12)
[2018-05-25] MEDS ORDERED: Metoprolol Succinate 25 mg XL Tab PO SCH (10:00)
[2018-05-25] MEDS: Metoprolol Succinate 50 mg XL Tab PO SCH (11:00)
--- NOTE | 2018-05-25 12:23 | CON ---
DATE: 05/25/2018 REQUESTING PHYSICIAN: Dr. Sanders. REASON FOR CONSULTATION: Dyspnea, weakness. HISTORY OF PRESENT ILLNESS: This is an 82-year-old man, well known to me with history of coronary artery disease, status post prior PCI as well as severe COPD, who presented to the emergency room with worsening fatigue, cough, and dyspnea for several weeks. He had previously been on potassium supplement, but discontinued this on his own as he was having a difficult time in swallowing the pills. He was hypokalemic upon admission. He is seen lying in bed on telemetry. He still has some expiratory wheezing. He has had no fever. He denies any recent chest pain. His past history is notable for the problems mentioned above. He does have chronic obesity, prior diastolic congestive heart failure. He underwent PCI of his RCA in 2016. His last catheterization at that time revealed mild ostial tapering of the left main. The LAD had 40% stenosis in its mid portion. Left circumflex artery also had 40% lesion proximally and 50% lesion in the mid portion. The right coronary artery had 50% proximal stenosis as well as 90% mid stenosis for which he underwent placement of a drug-eluting stent. His ejection fraction at that time was 50%. 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 He does have chronic diabetes, BPH as well. MEDICATIONS: His current medications include Mucomyst, Aldactone 25 mg daily, Brovana, Claritin, Coumadin, losartan 100 mg daily, Ecotrin, Flomax, Glucophage 500 mg daily, potassium 20 mEq daily, Lipitor 40 mg daily, Plavix 75 mg daily, Protonix 40 mg daily, Pulmicort, Singulair, Solu-Medrol 40 mg every 12 hours, and Toprol XL 25 mg daily. ALLERGIES: HE HAS HAD A REACTION TO PENICILLIN IN THE PAST. SOCIAL HISTORY: He continues to smoke intermittently. He denies alcohol use. FAMILY HISTORY: Both parents are from age-related illness. REVIEW OF SYSTEMS: Ten-point review of systems is notable mainly for the problems mentioned above. PHYSICAL EXAMINATION GENERAL: He is an elderly man who appears comfortable at rest. VITAL SIGNS: His blood pressure is 140/96 with a pulse of 88 in sinus, frequent PVCs, and short runs of nonsustained ventricular tachycardia noted. HEENT: Left eye enucleation is noted. NECK: No JVD present. CHEST: Bilateral scattered rhonchi heard with bilateral expiratory wheezing as well. HEART: PMI displaced laterally. A distant tone is noted and systolic murmur noted in the lower left sternal border. ABDOMEN: Soft, obese, nontender. Normoactive bowel sounds. EXTREMITIES: No edema. SKIN: Warm and dry. PSYCHIATRIC: Normal mood and affect. NEUROLOGIC: Alert and oriented x3. No gross motor or sensory deficits notable. DIAGNOSTIC DATA: Potassium is 4.5, BUN and creatinine are 16 and 0.8. White count 6.4, hemoglobin and hematocrit 13.2 and 39.9, and platelet count of 198,000. INR is 1.9. Venous blood gas showed a pH of 7.40, PCO2 of 43, and PO2 of 153, that is probably arterial. First troponin is negative. BNP is 1090. His electrocardiogram reveals sinus rhythm with left bundle-branch block pattern. Chest x-ray reveals mildly enlarged cardiac silhouette and possible right upper lobe pneumonia, and mild pulmonary venous congestion. IMPRESSION: 1. Exacerbation of chronic obstructive pulmonary disease. 2. Weakness and hypokalemia, possibly due to noncompliance with potassium supplement. 3. Coronary artery disease, status post remote percutaneous coronary intervention. 4. Hypertension. 5. Frequent ventricular ectopy and nonsustained ventricular tachycardia, chronic. 6. Hypertension with suboptimal control. RECOMMENDATIONS: His current cardiac medications were continued for now. Clopidogrel can be discontinued at this time as his stent has been in place for over a year. Metoprolol will be increased to 50 mg daily as tolerated and the need for compliance with medications was discussed with him as well. Sodium restriction is advised. Weight loss was encouraged. Continued smoking abstinence was advised as well. Thank you for this consultation. I will be happy to follow along through his hospital course. Manolo Haile MD MTDMoi
--- NOTE | 2018-05-25 13:59 | CP.PCM.PCO ---
Physician Communication Note - Physician Communication Note Physician Communication Note: COPD, continue solumedrol IV and nilton, PT eval pending
--- NOTE | 2018-05-25 15:22 | PN ---
DATE: 05/25/2018 PULMONARY PROGRESS NOTE REFERRING PHYSICIAN: Bessie Sanders MD SUBJECTIVE: The patient seen ambulating from inside his room to the hallway using cane. The patient report feeling well today, still has cough and shortness of breath with exertion. No headache, rhinitis, chest pain, abdominal pain, nausea, vomiting, diarrhea, leg pain or leg swelling reported. Family is with the patient at bedside at this time. OBJECTIVE: GENERAL: No acute distress. VITAL SIGNS: Blood pressure 153/91, pulse 77, temperature 98.1 and oxygen saturation 100% on room air. HEENT: Moist mucous membranes. Mallampati score of 4. Crowded airway. NECK: Supple. No JVD. LUNGS: Wheezing and rhonchi bilaterally. CARDIOVASCULAR: S1 and S2 audible. ABDOMEN: Soft and nontender. No distention. No organomegaly. EXTREMITIES: Trace bilateral lower extremity edema. NEUROLOGIC: Awake, alert and verbal. Follows commands. MEDICATIONS: Reviewed. Mucomyst 3 mL inhalation twice a day, Brovana 15 mcg every 12 hours, aspirin 81 mg daily, Lipitor 40 mg daily, Pulmicort 0.5 mg inhalation every 12 hours, vitamin D 2000 units daily, Claritin 10 mg daily, Cozaar 100 mg daily, metformin 500 mg daily, Solu-Medrol 40 mg every 12 hours, metoprolol succinate 50 mg daily, Singulair 10 mg daily, Protonix 40 mg daily, potassium chloride 20 mEq daily, Senna 8.6 mg p.o. daily, Aldactone 25 mg daily, Flomax 0.4 mg daily and Coumadin 5 mg daily. LABORATORY DATA: Reviewed. POC glucose 169. Blood cultures preliminary no growth. Extremity ultrasound shows no evidence of deep venous thrombosis in both lower extremities. IMPRESSION AND PLAN: Exacerbation of chronic obstructive lung disease, history of myocardial infarction in the past, coronary artery disease, history of coronary stent, hypertension, diabetes, gastroesophageal reflux disease, suspected sleep apnea syndrome, active smoker. Procalcitonin pending. Echocardiogram from November 27, 2016 review shows ejection fraction of 45%, right ventricular systolic pressure 70%. The patient has severe pulmonary hypertension. Gastric prophylaxis. Continue anticoagulation therapy. Smoking cessation. We will add Tessalon Perles for cough. We will add Lasix 20 mg twice a day. Monitor labs. Will decrease solumedrol. It is recommended that patient should have attended sleep study and full pulmonary function test upon discharge. This patient was seen and examined with Dr. Porter. Discussed assessment and plan as described above. Thank you for this consult and we will follow with you. Cliff Gao APN Krista Porter MD CLAUS
[2018-05-26 07:08] LABS: EOS % 0.1 % (1.5-5.0); GRAN # 5.51 (1.4-6.5); GRAN % 70.2 % (50.0-68.0); HEMOGLOBIN 13.2 g/dL (14.0-18.0); LYMPH # 1.7 (1.2-3.4); LYMPH % 21.7 % (22.0-35.0); MEAN CELL VOLUME 96.4 fl (80.0-105.0); MEAN CORPUSCULAR HEMOGLOBIN 31.4 pg (25.0-35.0); MEAN CORPUSCULAR HGB CONC 32.5 g/dl (31.0-37.0); MONO # 0.6 (0.1-0.6); RBC 4.21 10^6/uL (3.5-6.1); RED CELL DISTRIBUTION WIDTH 13.6 % (11.5-14.5); WHITE BLOOD COUNT 7.9 10^3/uL (4.5-11.0)
[2018-05-26 07:19] LABS: ALBUMIN 3.5 g/dL (3.0-4.8); ALT/SGPT 50 U/L (7-56); AST/SGOT 45 U/L (17-59); BLOOD UREA NITROGEN 19 mg/dL (7-21); CALCIUM 10.2 mg/dL (8.4-10.5); GFR NON-AFRICAN AMERICAN > 60
[2018-05-26] MEDS: Acetylcysteine 20% Inhal Soln (4ml) INH SCH ×3 (07:42→19:38)
[2018-05-26] MEDS: Arformoterol 15 mcg/2 ml Inh Sol IH SCH ×2 (07:43→19:39)
[2018-05-26] MEDS: Budesonide 0.5 mg/2 ml Inhal Susp UD IH SCH ×2 (07:44→11:17)
[2018-05-26] MEDS: Pantoprazole 40 mg EC Tab PO SCH (10:41)
[2018-05-26] MEDS: Metoprolol Succinate 50 mg XL Tab PO SCH (10:42)
[2018-05-26] MEDS: Potassium Chloride 20 mEq ER Tab PO SCH (10:42)
[2018-05-26] MEDS: Cholecalciferol 1,000 INTLU TAB PO SCH (10:42)
[2018-05-26] MEDS: MethylPREDNISolone 40 mg Vial IVP SCH ×2 (10:42→22:03)
[2018-05-26 11:02] LABS: IRON 74 ug/dL (45-180)
[2018-05-26 11:11] LABS: % IRON SATURATION 28 % (20-55); TOTAL IRON BINDING CAPACITY 264 ug/dL (261-462)
--- NOTE | 2018-05-26 12:52 | PN ---
DATE: 05/25/2018 SUBJECTIVE: The patient is 82-year-old male. The patient was seen and examined at the bedside on 05/25/2018. This progress note as for 05/25/2018 and looking comfortable, little bit anxious. No fever. No chills. For walking, using cane, still coughing with shortness of breath. No headache. No rhinitis. No chest pain. No abdominal pain. No hematuria, no hematochezia. No nausea, vomiting or diarrhea. No swelling of the leg. PHYSICAL EXAMINATION: VITAL SIGNS: Blood pressure 150/90, pulse 77, temperature 98.2, oxygenation saturation 100% on room air. HEENT: Head is normocephalic and atraumatic. Eyes; PERRLA. Extraocular muscles intact. Conjunctivae clear. Nose patent. Mucous membrane moist. NECK: Supple. No carotid bruit. No JVD or thyromegaly. CHEST: Bilaterally symmetrical. HEART: S1 and S2 positive. LUNGS: Clear to auscultation. ABDOMEN: Soft. Bowel sounds present. No organomegaly. EXTREMITIES: No edema. No cyanosis. NEUROLOGIC: Patient is awake and alert. Moving all 4 extremities. No focal deficit. MEDICATIONS: Mucomyst, Brovana, Lipitor, Pulmicort, Claritin, Cozaar, metformin, Solu-Medrol, metoprolol, potassium, senna, Aldactone and Coumadin. LABORATORY DATA: We do not have recent labs. Glucose is 159. ASSESSMENT AND PLAN: Mr. Carlitos Bolivar is an 82-year-old male with anemia, hyperglycemia, came with chronic obstructive pulmonary disease exacerbation, getting Solu-Medrol. Discussion done with the nurse practitioner. 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 Reviewed echocardiography done in 2017. Pulmonary hypertension, Gastrointestinal, deep venous thrombosis prophylaxis, getting tapering dose of steroid. Repeat labs. Gastrointestinal, deep venous thrombosis prophylaxis. The patient is on Coumadin, noncompliant with Coumadin. Checking INR. We will follow up. Bessie Sanders MD CLAUS
--- NOTE | 2018-05-26 13:11 | CP.PCM.PCO ---
Physician Communication Note - Physician Communication Note Physician Communication Note: continue solumedrol/lasix, repeat labs in am, will reeval in am
--- NOTE | 2018-05-26 13:58 | PN ---
DATE: 05/26/2018 PULMONARY PROGRESS NOTE REFERRING PHYSICIAN: Dr. Bessie Sanders SUBJECTIVE: The patient is still lying in bed, family at bedside. No acute distress. No overnight events reported. He reports that the patient has been refusing blood work this morning. The patient reports cough and shortness of breath still present, but improving. No headache, rhinitis, chest pain, abdominal pain, nausea, vomiting, diarrhea, leg pain, or leg swelling reported. OBJECTIVE: GENERAL: No acute distress. VITAL SIGNS: Blood pressure 118/59, pulse 74, temperature 98.7, and oxygen saturation 96% on room air. HEENT: Moist mucous membranes. Crowded airway. Mallampati score of 4. NECK: Supple. No JVD. LUNGS: Rhonchi bilaterally, mild wheezing. CARDIOVASCULAR: S1 and S2 audible. ABDOMEN: Soft and nontender. No distention. No organomegaly. EXTREMITIES: Trace bilateral lower extremity edema. NEUROLOGIC: Awake, alert, and verbal. Follows commands. MEDICATIONS: Reviewed. Mucomyst 3 mL inhalation twice a day, Brovana 15 mcg every 12 hours inhalation, aspirin 81 mg daily, Lipitor 40 mg daily, Tessalon Perles 100 mg three times a day, Pulmicort 0.5 mg inhalation every 12 hours, vitamin D 2000 units daily, Lasix 20 mg every 12 hours, Claritin 10 mg daily, Cozaar 100 mg daily, metformin 500 mg daily, Solu-Medrol 20 mg every 12 hours, metoprolol succinate 50 mg daily, Singulair 10 mg daily, Protonix 40 mg daily, potassium chloride 20 mEq daily, Senokot 8.6 mg daily, spironolactone 25 mg daily, Flomax 0.4 mg daily, and Coumadin 5 mg daily. LABORATORY DATA: Reviewed. WBC 7.9, RBC 4.21, hemoglobin 13.2, hematocrit 40.6, and platelets 244. Sodium 139, potassium 3.9, chloride 105, carbon dioxide 30, anion gap 9, BUN 19, creatinine 0.9, GFR greater than 60, POC glucose 108, random glucose 129, calcium 10.2, phosphorus 2.8, magnesium 2.0, iron 74, TIBC 254, percent saturation 28, total bilirubin 0.5, AST 45, ALT 50, alkaline phosphatase 86, total protein 7.1, albumin 3.5, globulin 3.6, albumin-globulin ratio 1.0, and procalcitonin 0.06. Blood cultures preliminary, no growth after 48 hours. IMPRESSION AND PLAN: Exacerbation of chronic obstructive lung disease, history of myocardial infarction in the past, coronary artery disease, history of coronary stent, hypertension, diabetes, gastroesophageal reflux disease, suspected sleep apnea syndrome, and active smoker. Procalcitonin levels negative. The patient has pulmonary hypertension. Continue gastric prophylaxis, anticoagulation therapy, and smoking cessation. Discussed with the patient importance of having PT/INR checked, agreed to have PT/INR checked, nursing informed. We will order CAT scan of the chest due to right upper lobe infiltrate. This patient will need attended sleep study and full pulmonary function test as outpatient. This patient was seen and examined with Dr. Porter. Discussed assessment and plan as described above. Thank you for this consult. We will follow with you. Cliff Gao APN Krista Porter MD
--- NOTE | 2018-05-26 14:31 | CT ---
Date of service: 05/26/2018 PROCEDURE: CT Chest without contrast HISTORY: right upper lobe infiltrate COMPARISON: Chest x-ray 05/24/2018 CT scan 09/02/2016 TECHNIQUE: Contiguous axial images were obtained through the chest without intravenous contrast enhancement. Sagittal and coronal reconstructions were performed. Radiation dose: Total exam DLP = 843.69 mGy-cm. This CT exam was performed using one or more of the following dose reduction techniques: Automated exposure control, adjustment of the mA and/or kV according to patient size, and/or use of iterative reconstruction technique. FINDINGS: LUNGS: There is a chronic linear infiltrate or scar in the right upper lobe that is unchanged since 09/02/2016 There is a small pleural-based nodule in the right lower lobe measuring 6 x 10 mm previously measuring 4 x 8 mm. Continued follow-up is suggested.. MEDIASTINUM: Unremarkable thoracic aorta. No aneurysm. Normal sized heart. Main pulmonary artery unremarkable. No vascular congestion. No lymphadenopathy. Aortic and coronary artery calcifications are seen. PLEURA: No pleural fluid. No pneumothorax. BONES: No fracture. No destructive lesion. UPPER ABDOMEN: Grossly unremarkable. OTHER FINDINGS: None. IMPRESSION: There is a chronic linear infiltrate or scar in the right upper lobe that is unchanged since 09/02/2016 There is a small pleural-based nodule in the right lower lobe measuring 6 x 10 mm previously measuring 4 x 8 mm. Continued follow-up is suggested..
--- NOTE | 2018-05-26 21:18 | PN ---
DATE: 05/26/2018 SUBJECTIVE: The patient is seen sitting in a chair on telemetry. He feels significantly better. He states his dyspnea is improved. He denies any chest pain. CURRENT MEDICATIONS: Include Mucomyst, Aldactone 25 mg daily, Brovana, Coumadin, losartan 100 mg daily, Ecotrin, Flomax, Glucophage 500 mg daily, Lasix 20 mg IV b.i.d., potassium supplement, Lipitor, Protonix 40 mg daily, Pulmicort inhaler, Singulair, Solu-Medrol, and Toprol-XL 50 mg daily. OBJECTIVE: GENERAL: He is an overweight elderly man. VITAL SIGNS: Blood pressure is 136/90 with pulse of 72 and sinus, respirations are 16, and he is afebrile. NECK: No JVD. CHEST: Few scattered rhonchi heard with bilateral expiratory wheezing as well. HEART: Reveals PMI to be displaced laterally. Heart tones are somewhat distant, systolic murmur is noted at the lower left sternal border. ABDOMEN: Soft, obese, and nontender with normoactive bowel sounds. EXTREMITIES: No edema. SKIN: Warm and dry. PSYCHIATRIC: Normal mood and affect. DIAGNOSTIC DATA: Potassium 3.9, BUN and creatinine are 19 and 0.9. White count 7.9, hemoglobin and hematocrit 13.2 and 40.6 with platelet count of 244,000. IMPRESSION: 1. Exacerbation of chronic obstructive pulmonary disease. 2. Generalized weakness improved following a replacement of potassium. 3. Coronary artery disease, status post remote percutaneous coronary intervention, clinically stable. 4. History of hypertension. RECOMMENDATIONS: His current treatment should continue for now. IV Lasix will be continued for another 1-2 days. As his pulmonary status improves, increased ambulation is advised. We will be happy to continue to follow and make further recommendations as appropriate. Manolo Haile MD
--- NOTE | 2018-05-27 02:52 | CP.PCM.PN ---
Subjective - Date & Time of Evaluation Date of Evaluation: 05/27/18 Time of Evaluation: 02:51 - Subjective Subjective: S: 82 y/o male, pmh including htn/cad/chf/asthma/copd, allergic to penicillin, c/o cough/fatigue and shortness of breath x 2 weeks. Patient has been having episodes of v-tach since 05/25/2018. Patient is sitting comfortably in his chair and denies any chest pain, SOB, abdominal pain, or any other complaints. O: Patient refused vitals and examination. A: Patient has been having episodes of v-tach since 05/25/2018. Patient is asym ptomatic. Plan: - Stat EKG - BMP - Mg - Troponin - Patient refuses getting EKG and labs to be done - Home Metoprolol held - Will continue to monitor Objective - Vital Signs/Intake and Output Vital Signs (last 24 hours): Temp Pulse Resp BP Pulse Ox 98.7 F 62 19 142/87 96 05/26/18 18:00 05/26/18 18:00 05/26/18 18:00 05/26/18 22:04 05/26/18 06:00 - Medications Medications: Current Medications Acetylcysteine (Acetylcysteine 20%) 3 ml INH BID [facility] Last Admin: 05/26/18 19:38 Dose: 2 ml Arformoterol Tartrate (Brovana) 15 mcg IH [id number] [facility] Last Admin: 05/26/18 19:39 Dose: 15 mcg Aspirin (Ecotrin) 81 mg PO DAILY [facility] Last Admin: 05/26/18 10:42 Dose: 81 mg Atorvastatin Calcium (Lipitor) 40 mg PO DAILY [facility] Last Admin: 05/26/18 10:42 Dose: 40 mg Benzonatate (Tessalon Perles) 100 mg PO TID [facility] Last Admin: 05/26/18 17:59 Dose: 100 mg Budesonide (Pulmicort Respules) 0.5 mg IH Q12 [facility] Last Admin: 05/26/18 11:17 Dose: Not Given Cholecalciferol (Vitamin D) 2,000 intlu PO DAILY [facility] Last Admin: 05/26/18 10:42 Dose: 2,000 intlu Furosemide (Lasix) 20 mg IVP Q12 [facility] Last Admin: 05/26/18 22:04 Dose: 20 mg Loratadine (Claritin) 10 mg PO DAILY [facility] Last Admin: 05/26/18 10:42 Dose: 10 mg Losartan Potassium (Cozaar) 100 mg PO DAILY [facility] Last Admin: 05/26/18 14:49 Dose: 100 mg Metformin HCl (Glucophage) 500 mg PO DAILY [facility] Last Admin: 05/26/18 10:41 Dose: 500 mg Methylprednisolone (Solu-Medrol) 20 mg IVP Q12 [facility] Last Admin: 05/26/18 22:03 Dose: 20 mg Metoprolol Succinate (Toprol Xl) 50 mg PO DAILY [facility] Last Admin: 05/26/18 10:42 Dose: 50 mg Montelukast Sodium (Singulair) 10 mg PO DAILY [facility] Last Admin: 05/26/18 10:41 Dose: 10 mg Pantoprazole Sodium (Protonix Ec Tab) 40 mg PO DAILY [facility] Last Admin: 05/26/18 10:41 Dose: 40 mg Potassium Chloride (K-Dur 20 Meq Er Tab) 20 meq PO DAILY [facility] Last Admin: 05/26/18 10:42 Dose: 20 meq Sennosides (Senokot Tab) 8.6 mg PO DAILY [facility] Last Admin: 05/26/18 10:41 Dose: 8.6 mg Spironolactone (Aldactone) 25 mg PO DAILY [facility] Last Admin: 05/26/18 10:41 Dose: 25 mg Tamsulosin HCl (Flomax) 0.4 mg PO DAILY [facility] Last Admin: 05/26/18 11:12 Dose: 0.4 mg Warfarin Sodium (Coumadin) 5 mg PO 1800 [facility]; Protocol Last Admin: 05/26/18 17:59 Dose: 5 mg - Labs Labs: 05/26/18 06:00 05/26/18 06:00 PT 22.1 SECONDS (9.4-12.5) H 05/24/18 10:30 INR 1.90 05/24/18 10:30 APTT 33.4 Seconds (25.1-36.5) 05/24/18 10:30
[2018-05-27 03:42] VITALS: RESP 20
[2018-05-27 06:40] LABS: MEAN CELL VOLUME 95.2 fl (80.0-105.0); MEAN CORPUSCULAR HEMOGLOBIN 32.5 pg (25.0-35.0); MEAN CORPUSCULAR HGB CONC 34.1 g/dl (31.0-37.0); RBC 4.62 10^6/uL (3.5-6.1); RED CELL DISTRIBUTION WIDTH 13.1 % (11.5-14.5); WHITE BLOOD COUNT 6.7 10^3/uL (4.5-11.0)
[2018-05-27 06:44] VITALS: BP 124/84; PULSE 91; TEMP 97.3; O2SAT 98
[2018-05-27 06:47] LABS: INR 1.41; PROTHROMBIN TIME 16.3 SECONDS (9.4-12.5)
[2018-05-27 07:45] LABS: ALT/SGPT 35 U/L (7-56); AST/SGOT 26 U/L (17-59); BLOOD UREA NITROGEN 24 mg/dL (7-21); CALCIUM 10.8 mg/dL (8.4-10.5); GFR NON-AFRICAN AMERICAN > 60
[2018-05-27] MEDS: Acetylcysteine 20% Inhal Soln (4ml) INH SCH (07:50)
[2018-05-27] MEDS: Budesonide 0.5 mg/2 ml Inhal Susp UD IH SCH (07:51)
[2018-05-27] MEDS: Arformoterol 15 mcg/2 ml Inh Sol IH SCH (07:51)
== END 2018-05-27 08:48 | disposition left against medical advice (07) | DRG 190 ==
LOC: ED 10:15 → ERH 12:21 → INTOOBSV 12:21 → OBSVTOIN 13:25 → ERH 20:25 → 2RNO 20:59
PROVIDERS: ADMIT Internal Medicine; ATTEND Internal Medicine
DX: J44.1 Chronic obstructive pulmonary disease with (acute) exacerbation (principal); J18.9 Pneumonia, unspecified organism; I50.32 Chronic diastolic (congestive) heart failure; I42.9 Cardiomyopathy, unspecified; I47.2 Ventricular tachycardia; E11.65 Type 2 diabetes mellitus with hyperglycemia; I11.0 Hypertensive heart disease with heart failure; E83.42 Hypomagnesemia; E87.6 Hypokalemia; D64.9 Anemia, unspecified; F17.200 Nicotine dependence, unspecified, uncomplicated; I25.10 Atherosclerotic heart disease of native coronary artery without angina pectoris; H54.62 Unqualified visual loss, left eye, normal vision right eye; I27.20 Pulmonary hypertension, unspecified; J44.0 Chronic obstructive pulmonary disease with (acute) lower respiratory infection; G47.30 Sleep apnea, unspecified; I49.3 Ventricular premature depolarization; K21.9 Gastro-esophageal reflux disease without esophagitis; N40.0 Benign prostatic hyperplasia without lower urinary tract symptoms; E66.9 Obesity, unspecified; Z68.33 Body mass index [BMI] 33.0-33.9, adult; Z79.01 Long term (current) use of anticoagulants; I25.2 Old myocardial infarction; Z79.02 Long term (current) use of antithrombotics/antiplatelets; Z79.82 Long term (current) use of aspirin; Z79.84 Long term (current) use of oral hypoglycemic drugs; Z88.0 Allergy status to penicillin; Z91.14 Patient's other noncompliance with medication regimen; Z95.5 Presence of coronary angioplasty implant and graft

== ENCOUNTER 2018-06-15 10:04 | Outpatient (CLI) | payer MEDICARE | END 2018-06-15 10:05 | disposition home or self-care (01) | LOC: RAD 10:04 ==

== ENCOUNTER 2018-08-11 09:47 | Outpatient (CLI) | payer MEDICARE | END 2018-08-11 09:48 | disposition home or self-care (01) | LOC: RAD 09:47 ==